=== PATIENT | male | born 1955 | race Caucasian/White ===

== ENCOUNTER 2016-05-31 09:01 | Day surgery (SDC) | payer OTHER ==
[~2016-05-31 09:01] MED LIST: LACTATED RINGERS 1,000 ML IV SCH
[2016-05-31 09:35] VITALS: RESP 16; TEMP 98.2
[2016-05-31] MEDS ORDERED: BUPIVACAINE (PF) 0.5% 30 ML VIAL ONE (10:32)
[2016-05-31] MEDS ORDERED: TRIAMCINOLONE ACETONIDE 40 MG/ML 1 ML VIAL ONE (10:32)
--- NOTE | 2016-05-31 11:04 | P.PCN ---
Date of Procedure: 05/31/16 Procedure(s) Performed: PREOPERATIVE DIAGNOSIS: 1-Lumbar Spondylosis with Facet Arthropathy without myelopathy. 2- sacroiliitis POSTOPERATIVE DIAGNOSIS: 1- Lumbar Spondylosis with Facet Arthropathy without myelopathy. 2- sacroiliitis PROCEDURES : Right side Radiofrequency thermocoagulation, L3-L4, L4-L5, and L5- S1 medial branch, with fluoroscopic guidance ANESTHESIA: local infiltration with lidocaine 1% 6 ml only (no IV sedation given as per patient's request) EBL: Minimal PROCEDURE INDICATION: The patient with low back pain secondary to lumbar facet arthropathy who had more than 50% relief of her pain with previous diagnostic lumbar medial branch block with bupivacaine. Patient had good results after the radiofrequency ablation of the medial branch lumbar area, and he is here today to have the radiofrequency plus the right sacroiliac joint steroid injection PROCEDURE DESCRIPTION / TECHNIQUE: The patient was seen and identified in the preoperative area. Risks, benefits, complications, including but not limited to risk of infection ,bleeding , allergic reactions to the medications and no complete pain releife , and alternatives were discussed with the patient, the patient agreed to proceed with the procedure and signed the consent. . Vital signs remained stable throughout the procedure. Patient was taken to the OR and time out was completed. The patient was placed in the prone position on the procedure table. The lumber area was prepped and draped in the usual sterile fashion. . Vital signs were closely monitored during the procedure. Using AP and then oblique fluoroscopy, the ``eye of the Sherwin dog corresponding to the connection between the superior and transverse articular processes of right L3, L4, and L5 were identified, marked, and localized with 1 % lidocaine. Subsequently, a 18 [id number] radiofrequency cannula with a 10- mm active tip was advanced guided by fluoroscopy to each of the ``eyes of the Sherwin dog at right L3, L4, and L5. Each site then underwent sensory testing at 50 Hz and 0 to 1 volt and motor testing at 2.5 Hz and 0 to 3 volt with local stimulation, but no radicular symptoms down the legs. Thereafter the right L3-4, L4-5, and L5-S1 sites underwent radiofrequency thermocoagulation at 80 degrees celsius for 90 seconds after injecting 0.5 ml of PF lidocaine 1%. then After the thermocoagulation done , 1 ml of the block solution containing Kenalog 40 mg and 3 ml of marain 0.5% was injected at the right L3-4 , L4-5 , and L5-S1, levels after negative aspiration of CSF and blood and with no paresthesias. Cannulas were retracted while injecting lidocaine 1% until the needle is out. Procedure description for the right sacroiliac joint= , the fluoroscopy camera was placed in the contralateral oblique view on the right sacroiliac joint and the lower part of the joint was identified, local infiltration of the skin and subcutaneous tissue with lidocaine 1% 2 mL then a 22-gauge Quincke-type spinal needle advanced slowly under fluoroscopy and placed in the posterior and inferior border of the right sacroiliac joint, placement confirmed with AP and lateral view, and after appropriate needle placement confirmed and after negative aspiration for heme and CSF and there was no paresthesia during the injection, 3 ml of Marcaine 0.5% and 40 mg of Kenalog injected after negative aspiration, the needle removed Patient tolerated the procedure well without any complication, The patient returned to supine position after the back was cleaned and a Band- Aid applied, the patient transported to recovery room in stable condition and he was monitored for 30 minutes before he was discharged home and then patient was reexamined before going home and patient was discharged in stable condition and patient will follow up with the pain clinic in a few weeks At the end of the procedure, the skin was cleansed and bandages were applied. COMPLICATIONS: No acute complications. DISPOSITION / PLANS: The patient was placed in a supine position and transferred to the recovery area in a stable condition for observation and was discharged from the recovery room after meeting discharge criteria. Home discharge instructions given to the patient by the staff. The patient was reexamined prior to discharge. The patient will schedule a follow up in the clinic in 2-4 weeks.
[2016-05-31 11:11] VITALS: BP 137/95; PULSE 75
--- NOTE | 2016-05-31 11:48 | FL ---
EXAMINATION TYPE: FL guided pain mgmt statistic DATE OF EXAM: 05/31/2016 11:07 AM HISTORY: Pain FLUORO TIME 15 SECONDS, 4 IMAGES SCANNED,
== END 2016-05-31 11:20 | disposition home or self-care (01) ==
LOC: ORPAIN 09:01
PROVIDERS: ATTEND Specialist
DX: M47.816 Spondylosis without myelopathy or radiculopathy, lumbar region (principal); M46.96 Unspecified inflammatory spondylopathy, lumbar region; M46.1 Sacroiliitis, not elsewhere classified
CPT/HCPCS: 64635; 64636 ×2; 99152; 99153; J3301; G0260; 27096

== ENCOUNTER → 2016-07-26 | Outpatient (CLI) | payer OTHER ==
[2016-07-26 12:27] VITALS: PULSE 95; RESP 16; TEMP 97.9
--- NOTE | 2016-07-26 12:52 | P.CONS ---
History of Present Illness - Reason for Consult Consult date: 07/26/16 - History of Present Illness This is follow-up visit for this 60 years old male with a chronic history of severe low back pain, diagnosed with lumbar spondylosis and sacroiliitis, with done diagnostic medial branch block bilaterally and he had good result and with done radiofrequency ablation of the right-sided medial branch lumbar area, currently is complaining of severe low back pain with radiation to the buttock bilaterally, and also to the posterior lateral aspect of the lower extremities, he denies any motor or sensory deficits he denies any change in the bowel movement or urination and is currently on pain medication [place] 10/325 every 6 hours, magnesium oxide 400 mg daily and Mobic 7.5 mg daily, he denies any side effect of the medication he denies any excessive drowsiness and sleepiness and he for the current pain medications helping him to control his pain. Past Medical History Past Medical History: Pneumonia Additional Past Medical History / Comment(s): HX OF PNEUMONIA (X10), MONO AND MALARIA, DDD/Chronic back pain. History of Any Multi-Drug Resistant Organisms: None Reported Past Surgical History: No Surgical Hx Reported Additional Past Surgical History / Comment(s): [facility] Past Anesthesia/Blood Transfusion Reactions: No Reported Reaction Past Psychological History: ADD/ADHD Smoking Status: Current every day smoker Past Alcohol Use History: Rare Additional Past Alcohol Use History / Comment(s): SMOKING FOR 40 PLUS YEARS, CURRENTLY SMOKING 5-6 CIGARETTES PER DAY. Past Drug Use History: None Reported - Past Family History Mother Family Medical History: No Reported History Medications and Allergies Home Medications Medication Instructions Recorded Confirmed Type Aspirin 81 mg PO DAILY 04/02/15 07/26/16 History Dextroamphetamine/Amphetamine 15 mg PO BID 07/24/15 07/26/16 History [Adderall] Allergies Allergy/AdvReac Type Severity Reaction Status Date / Time No Known Allergies Allergy Verified 07/26/16 12:08 Physical Exam Vitals: Vital Signs Temp Pulse Resp Pulse Ox 07/26/16 12:10 97.9 F 95 16 97 Intake and Output 07/25/16 07/26/16 07/26/16 22:59 06:59 14:59 Other: Weight 106.594 kg Patient Weight 07/27/16 06:59 Weight 106.594 kg Physical Examinations : 1-Constitutiona : Cooperative , not in acute distress . 2-HEENT : nech ; supple , no Lymphadenopathy , no Thyromegaly , normal thyroid size . eyes : no ptosis , no icterus, no photophobia . ENT : normal of hearing , normal oropharynx , no Thrush . 3- Respiratory : Chest clear to auscultations Bilaterally , no wheezing , no Rhonchi . 4- Cardiovascular : regular rate and rhythem , S1 , S2 , no S3 , no S4. 5- Gastrointestinal : abdomen soft no tenderness , bowel sounds positive all four quadrents , no organomegally . 6- Genitourinary : Defferred . 7- neurologic : Cranial nerve II to XII intact , no focal neurological deffecit . 8-psychatric : alert , oriented X 3 , appropriate affect , intact judgment and insight . 9-Lymphatic : no Lymphadenopathy . 10- musculoskeltal : exams of the Lumber spine = normal moter stegnth lower extremities ,thigh and legs .5/5 deep tendon reflexes : normal Knee Jerk , normal ankle Jerk . positive lumber facet Loading Test strait leg raising test positive at 30 degree , RT ,LT , Fabere test positive RT and positive LT . Sever tenderness over the Sacroiliac joint on the Right , and Left side Assessment and Plan Plan: Assessment and plan = - Chronic low back pain secondary to lumbar spondylosis with facet arthropathy without myelopathy. Bilateral sacroiliitis -chronic and current use of high-risk medication (Opioids). -Patient denies any side effect of the medication, and the current medication helped the patient to control the pain and improve activity of daily living, the visual The patient was counseled about risk of opioid use, psychological risk associated with opioids discussed with the patient, body mass index and exercise. Patient signed the narcotic agreement , and was orally counseled not to overuse , abuse , divert, or sell medications ,and take them as prescribed only , and the patient was counseled against driving and while you are using the narcotic medication also not to use alcohol or any illicit drugs and the patient verbalized understanding that lack of compliance and could result in failure to renew narcotics prescriptions and possible discharge from the clinic - diagnoses, prognosis, and treatment options including but not limited to physical therapy, surgical interventions, interventional therapies and medication management including narcotics and adjuvant medication were discussed with the patient and all questions answered to the patient's satisfaction. -medication refile =1-[place] 10/325 every 6 hours dispense 120 with one refill 2-magnesium oxide 400 mg daily dispensed 30 with one refill 3-Mobic 7.5 mg daily dispensed 30 with one refill -procedure= patient could benefit from radiofrequency ablation of the medial branch on the left side at L3/L4 5/L5-S1 , and also he could benefit from bilateral sacroiliac joint steroid injection, Time with Patient: Less than 30
[2016-07-26 13:02] VITALS: BP 171/123
--- NOTE | 2016-07-26 13:11 | P.PN ---
Progress Note - Text This is an addendum to the consult note dictated today, the patient's blood pressure was right arm 181/150, and repeated on the right side was 171/123, and interviewed the patient had hypertensive emergency and I explained to the patient gets is very important, that he has to go to the emergency room for evaluation regarding his high blood pressure, and a explained to the patient that this is a higher risk for stroke/heart attack and kidney disease, , and patient reported that he will go to the emergency room today
== END | disposition home or self-care (01) ==
LOC: PNWHC3 11:53
PROVIDERS: ATTEND Specialist
DX: M47.816 Spondylosis without myelopathy or radiculopathy, lumbar region (principal); M46.86 Other specified inflammatory spondylopathies, lumbar region; M46.1 Sacroiliitis, not elsewhere classified; F17.200 Nicotine dependence, unspecified, uncomplicated; Z87.01 Personal history of pneumonia (recurrent); Z79.82 Long term (current) use of aspirin; Z79.899 Other long term (current) drug therapy
CPT/HCPCS: 99211

== ENCOUNTER 2016-09-16 07:58 | Day surgery (SDC) | payer OTHER ==
[2016-09-02 13:31] VITALS: BMI 30.8
[2016-09-16 08:20] VITALS: RESP 16; TEMP 97.3
[2016-09-16] MEDS ORDERED: DEXAMETHASONE SOD PHOS (MDV) 100 MG/10 ML VIAL ONE (09:29)
[2016-09-16] MEDS ORDERED: BUPIVACAINE (PF) 0.5% 30 ML VIAL ONE (09:29)
--- NOTE | 2016-09-16 10:09 | P.PCN ---
Date of Procedure: 09/16/16 Preoperative Diagnosis: Postoperative Diagnosis: Procedure(s) Performed: PREOPERATIVE DIAGNOSIS: 1-Lumbar Spondylosis with Facet Arthropathy without myelopathy. 2- sacroiliitis POSTOPERATIVE DIAGNOSIS: 1- Lumbar Spondylosis with Facet Arthropathy without myelopathy. 2- sacroiliitis. PROCEDURES :1- Left Radiofrequency thermocoagulation, L3-L4, L4-L5, and L5-S1 medial branch, with fluoroscopic guidance 2-bilaterally sacroilac joints steroid injections under fluoroscopy guidance ANESTHESIA: local infiltration with lidocaine 1% 6 ml , no iv sedations EBL: Minimal PROCEDURE INDICATION: The patient with low back pain secondary to lumbar facet arthropathy who had more than 50% relief of her pain with previous diagnostic lumbar medial branch block with bupivacaine. PROCEDURE DESCRIPTION / TECHNIQUE: The patient was seen and identified in the preoperative area. Risks, benefits, complications, including but not limited to risk of infection ,bleeding , allergic reactions to the medications and no complete pain releife , and alternatives were discussed with the patient, the patient agreed to proceed with the procedure and signed the consent. IV was started. Vital signs remained stable throughout the procedure. Patient was taken to the OR and time out was completed. The patient was placed in the prone position on the procedure table. The lumber area was prepped and draped in the usual sterile fashion. . Vital signs were closely monitored during the procedure . Using AP and then oblique fluoroscopy, the ``eye of the Sherwin dog corresponding to the connection between the superior and transverse articular processes of left L3, L4, and L5 were identified, marked, and localized with 1 % lidocaine. Subsequently, a 18 guage (Venom )100-mm radiofrequency cannula with a 10-mm active tip was advanced guided by fluoroscopy to each of the `` eyes of the Sherwin dog at Left L3, L4, and L5. Each site then underwent sensory testing at 50 Hz and 0 to 1 volt and motor testing at 2.5 Hz and 0 to 3 volt with local stimulation, but no radicular symptoms down the legs. Thereafter the Left L3-4, L4-5, and L5-S1 sites underwent radiofrequency thermocoagulation at 80 degrees celsius for 90 seconds after injecting 0.5 ml of PF lidocaine 1%. then After the thermocoagulation done , 1 ml of the block solution containing Dexamethasone 10 mg and 3 ml of marain 0.5% was injected at the Left L3-4 , L4-5 , and L5-S1, levels after negative aspiration of CSF and blood and with no paresthesias. Cannulas were retracted while injecting lidocaine 1% until the needle is out.. Procedure description for the sacroiliac joints steroid injections = , the fluoroscopy camera was placed in the contralateral oblique view on the right sacroiliac joint and the lower part of the joint was identified, local infiltration of the skin and subcutaneous tissue with lidocaine 1% 2 mL then a 22-gauge Quincke-type spinal needle advanced slowly under fluoroscopy and placed in the posterior and inferior border of the right sacroiliac joint, placement confirmed with AP and lateral view, and after appropriate needle placement confirmed and after negative aspiration for heme and CSF and there was no paresthesia during the injection, 3 ml of Marcaine 0.5% and 5 mg Dexamethasone ,injected after negative aspiration, the needle removed, and the entire same procedure was repeated for the left sacroiliac joint Patient tolerated the procedure well without any complication, The patient returned to supine position after the back was cleaned and a Band- Aid applied, the patient transported to recovery room in stable condition and he was monitored for 30 minutes before he was discharged home and then patient was reexamined before going home and patient was discharged in stable condition and patient will follow up with the pain clinic in a few weeks At the end of the procedure, the skin was cleansed and bandages were applied. COMPLICATIONS: No acute complications. DISPOSITION / PLANS: The patient was placed in a supine position and transferred to the recovery area in a stable condition for observation and was discharged from the recovery room after meeting discharge criteria. Home discharge instructions given to the patient by the staff. The patient was reexamined prior to discharge. The patient will schedule a follow up in the clinic in 2-4 weeks. Implants: Indications for Procedure: Operative Findings: Description of Procedure:
[2016-09-16 10:32] VITALS: BP 148/88; PULSE 75
--- NOTE | 2016-09-16 11:04 | FL ---
FLUOROSCOPY 24 seconds of fluoroscopy time were utilized during Pain Injection. 5 images document the procedure.
== END 2016-09-16 10:34 | disposition home or self-care (01) ==
LOC: ORPAIN 07:58
PROVIDERS: ATTEND Specialist
DX: M47.816 Spondylosis without myelopathy or radiculopathy, lumbar region (principal); M46.96 Unspecified inflammatory spondylopathy, lumbar region; M46.1 Sacroiliitis, not elsewhere classified
CPT/HCPCS: 64635; 64636; J1100; G0260

== ENCOUNTER → 2016-11-09 | Outpatient (CLI) | payer OTHER ==
[2016-11-09 11:57] VITALS: BP 125/89; PULSE 85; RESP 16; TEMP 97.6
--- NOTE | 2016-11-09 12:17 | P.PN ---
Progress Note - Text This is a 60-year-old gentleman with severe axial lower back pain. The patient' s pain has been treated with a combination of oral Louann and interventional pain procedures. The last one was RFA on the left lumbar medial branches and he also had an RFA on the right side in May. Both of these injections helped his pain for a few months. He reports increasing intensity of his pain especially on the right side and that's why I'm going to schedule him for right lumbar medial branch RFA. I will also give him prescription for Louann, magnesium ,and mobic. The patient does not show any drug-seeking behavior he also does not show any signs of oversedation. He denies any bowel or bladder dysfunction. His increasing lower back pain has been affecting his daily activities but hopefully doing the RFA on the right side will help decrease the intensity of this pain.
== END | disposition home or self-care (01) ==
LOC: PNWHC3 11:32
PROVIDERS: ATTEND Anesthesiology
DX: M54.5 Low back pain (principal)
CPT/HCPCS: 99211

== ENCOUNTER 2016-12-08 10:10 | Day surgery (SDC) | payer OTHER ==
[2016-12-01 10:40] VITALS: BMI 29.9
[~2016-12-08 10:10] MED LIST changes: +LACTATED RINGERS 1,000 ML IV ONE; -LACTATED RINGERS 1,000 ML IV SCH
[2016-12-08 11:32] VITALS: RESP 16; TEMP 98.1
--- NOTE | 2016-12-08 12:37 | P.PCN ---
Date of Procedure: 12/08/16 Preoperative Diagnosis: Postoperative Diagnosis: Procedure(s) Performed: PREOPERATIVE DIAGNOSIS: 1-Lumbar Spondylosis with Facet Arthropathy without myelopathy. 2- sacroiliitis POSTOPERATIVE DIAGNOSIS: 1- Lumbar Spondylosis with Facet Arthropathy without myelopathy. 2- sacroiliitis PROCEDURES : Right Radiofrequency thermocoagulation, L3-L4, L4-L5, and L5-S1 medial branch, with fluoroscopic guidance ANESTHESIA: local infiltration with lidocaine 1% 6 ml only ,no IV sedations EBL: Minimal PROCEDURE INDICATION: The patient with low back pain secondary to lumbar facet arthropathy who had more than 50% relief of her pain with previous diagnostic lumbar medial branch block with bupivacaine. PROCEDURE DESCRIPTION / TECHNIQUE: The patient was seen and identified in the preoperative area. Risks, benefits, complications, including but not limited to risk of infection ,bleeding , allergic reactions to the medications and no complete pain releife , and alternatives were discussed with the patient, the patient agreed to proceed with the procedure and signed the consent. IV was started. Vital signs remained stable throughout the procedure. Patient was taken to the OR and time out was completed. The patient was placed in the prone position on the procedure table. The lumber area was prepped and draped in the usual sterile fashion. . Vital signs were closely monitored during the procedure . Using AP and then oblique fluoroscopy, the ``eye of the Sherwin dog corresponding to the connection between the superior and transverse articular processes of right L3, L4, and L5 were identified, marked, and localized with 1 % lidocaine. Subsequently, a 18 [id number] radiofrequency cannula with a 10- mm active tip was advanced guided by fluoroscopy to each of the ``eyes of the Sherwin dog at right L3, L4, and L5. Each site then underwent sensory testing at 50 Hz and 0 to 1 volt and motor testing at 2.5 Hz and 0 to 3 volt with local stimulation, but no radicular symptoms down the legs. Thereafter the right L3-4, L4-5, and L5-S1 sites underwent radiofrequency thermocoagulation at 80 degrees celsius for 90 seconds after injecting 0.5 ml of PF lidocaine 1%. then After the thermocoagulation done , 1 ml of the block solution containing Dexamrthasone 10 mg and 3 ml of marain 0.5% was injected at the right L3-4 , L4-5 , and L5-S1, levels after negative aspiration of CSF and blood and with no paresthesias. Cannulas were retracted while injecting lidocaine 1% until the needle is out. At the end of the procedure, the skin was cleansed and bandages were applied. COMPLICATIONS: No acute complications. DISPOSITION / PLANS: The patient was placed in a supine position and transferred to the recovery area in a stable condition for observation and was discharged from the recovery room after meeting discharge criteria. Home discharge instructions given to the patient by the staff. The patient was reexamined prior to discharge. The patient will schedule a follow up in the clinic in 2-4 weeks. Implants: Indications for Procedure: Operative Findings: Description of Procedure:
[2016-12-08 12:49] VITALS: BP 118/84; PULSE 82
--- NOTE | 2016-12-08 13:47 | FL ---
EXAMINATION TYPE: FL guided pain mgmt statistic DATE OF EXAM: 12/08/2016 COMPARISON: NONE HISTORY: Back pain TECHNIQUE: Fluoroscopy. FINDINGS/IMPRESSION: Fluoroscopic guidance was provided during procedure performed by Dr. Ramsey. A total of 12 seconds of fluoroscopic time was utilized during the procedure and 3 spot images was a cquired.
== END 2016-12-08 13:01 | disposition home or self-care (01) ==
LOC: ORPAIN 10:10
PROVIDERS: ATTEND Specialist
DX: M47.816 Spondylosis without myelopathy or radiculopathy, lumbar region (principal); M46.96 Unspecified inflammatory spondylopathy, lumbar region; M46.1 Sacroiliitis, not elsewhere classified; I10 Essential (primary) hypertension
CPT/HCPCS: 64635; 64636 ×2; J1100

== ENCOUNTER → 2017-01-04 | Outpatient (CLI) | payer OTHER ==
[2017-01-04 13:11] VITALS: BP 100/56; RESP 16
--- NOTE | 2017-01-04 13:28 | P.PN ---
Progress Note - Text Patient returns for followup for chronic back pain with radiation to the hips. Patient recently underwent bilatearl lumbar RFA, which provided some relief for 3-4 weeks' interval until he stepped in a rut while not looking and has had severe pain in his back since, but no incontinence or new weakness. Patient continues on [place]/magnesium/Mobic medications for pain with good relief. Patient denies adverse drug effects from medications. Today, pt denies any other signs or symptoms of cauda equina syndrome. There are no signs of acute intoxication, and no indications of medication diversion or overuse. In addition to above, 13-point review of systems is also negative for chest pain , shortness of breath, changes in vision, changes in hearing, new onset weakness , abdominal pain, diarrhea, extreme fatigue, malaise, fever, skin changes, homicidal or suicidal ideation, or bowel or bladder incontinence. Vital Signs: Reviewed in EMR Gen: WDWN, AAOx3, NAD HEENT: NCAT, EOMI, hearing grossly normal Pulm: resp unlabored Abd: soft, NT, ND Neck: supple, trachea midline ROM in flexion lumbar spine: reduced ROM in extension lumbar spine: reduced Lumbar paravertebral tenderness: + Facet loading: + bilateral SI joint tenderness: + R >> L Nuno's test: + R > L Straight leg raise: neg Neuro: CN II-XII grossly intact, muscle strength lower extremities PRESERVED Imaging: Reviewed in EMR Assessment: 1. lumbar spondylosis without myelopathy 2. chronic pain syndrome 3. SI joint dysfunction Plan: 1. Explanation: Opioid and psychological risk scores were reviewed. Diagnoses , prognoses, and multiple treatment options including but not limited to physical therapy, interventional therapies, adjuvant medical therapies, narcotic medication therapies, and surgery were discussed with the patient and all questions were answered to the patient's satisfaction. 2. Opioid agreement: Patient has previously signed narcotic agreement, and was orally counseled to not overuse, abuse, divert, or cell medications, and to take them as prescribed by only 1 healthcare provider. The patient was also counseled to store opioid medications in a safe and preferably locked location. Patient was also counseled against driving or operating heavy equipment while using narcotic medications and also to not use alcohol or any illicit or recreational drugs. The patient verbalized understanding that lack of compliance with any of the above and likely result in failure to renew narcotic prescriptions, possible discharge from the clinic, and possible legal ramifications thereafter if indicated. 3. Counseling: The patient was counseled extensively on SMOKING CESSATION, BODY MASS INDEX, EXERCISE. Specifically, the patient was instructed regarding the importance of smoking cessation, weight control, and exercise in the context of both chronic pain and overall health. 4. Procedures: none for now 5. Consultations: None 6. Investigations: None 7. Medications: [place] 10/325 #120 with one refill, Mobic and Magnesium with five refills 8. Disposition: f/u for re-eval in 8 weeks PQRS measures: 1-Patient's medications are documented in the chart. 2-Tobacco use is positive, counseling given 3-Patient has not had a pneumococcal vaccine. 4-Advanced care planning discussed, patient unable to give. 5-Opioid contract signed with the patient. 6-Pain positive, follow-up visit or procedure scheduled 7-Patient's blood pressure measured and documented, and patient will follow up with the primary care due to hypertension. 8-Patient's weight was measured, and body mass index ABOVE the normal limits, and counseling was done. Patient instructed to follow up with PCP. 9-Patient WAS NOT identified as an unhealthy alcohol user.
[2017-01-05 14:18] LABS: Mis test requested (Non-blood) HEROIN
[2017-01-05 14:20] LABS: Mis test requested (Non-blood) UDPAIN
== END | disposition home or self-care (01) ==
LOC: PNWHC3 12:34
PROVIDERS: ATTEND Anesthesiology
DX: M47.816 Spondylosis without myelopathy or radiculopathy, lumbar region (principal); M53.3 Sacrococcygeal disorders, not elsewhere classified; G89.4 Chronic pain syndrome
CPT/HCPCS: 80307; 80356; 99211

== ENCOUNTER → 2017-03-01 | Outpatient (CLI) | payer OTHER ==
[2017-03-01 12:19] VITALS: BP 116/82; PULSE 92; RESP 16; TEMP 98.3
--- NOTE | 2017-03-01 12:52 | P.PN ---
Progress Note - Text Progress Note Date: 03/01/17 This is a 61-year-old male with history of lumbar spondylosis and chronic lower back pain plus degenerative disc disease. The patient failed to respond to interventional pain procedures which gave him only short-lived improvements. He takes 4 pills a day of [place] 10 mg. His last urine drug screen was negative for opioids. He is alert oriented 3, usually paces the room every time I examined him. He has mildly decreased but symmetrical weakness in the lower extremities to 4 out of 5. Normal knee reflexes bilaterally and normal ankle with his bilaterally. He has significant tenderness in the lumbar paravertebral area especially on the right side. Today I will send the patient to repeat his urine drug screen and will give him prescription only for 1 month of [place].
== END | disposition home or self-care (01) ==
LOC: PNWHC3 12:03
PROVIDERS: ATTEND Anesthesiology
DX: M54.5 Low back pain (principal)
CPT/HCPCS: 80307; 80356; 80364; 99211

== ENCOUNTER → 2017-03-29 | Outpatient (CLI) | payer OTHER ==
[2017-03-29 13:00] VITALS: BP 138/93; PULSE 87; RESP 20; TEMP 98.3
--- NOTE | 2017-03-29 13:16 | P.PN ---
Progress Note - Text Progress Note Date: 03/29/17 Patient returns for followup for chronic back pain with radiation to the hips. Patient recently underwent bilateral lumbar RFA, which provided some relief for 3-4 weeks' interval until he stepped in a rut while not looking and has had severe pain in his back since, but no incontinence or new weakness. Patient continues on [place]/magnesium/Mobic medications for pain with good relief. Patient denies adverse drug effects from medications. Today, pt denies any other signs or symptoms of cauda equina syndrome. There are no signs of acute intoxication, and no indications of medication diversion or overuse. In addition to above, 13-point review of systems is also negative for chest pain , shortness of breath, changes in vision, changes in hearing, new onset weakness , abdominal pain, diarrhea, extreme fatigue, malaise, fever, skin changes, homicidal or suicidal ideation, or bowel or bladder incontinence. Vital Signs: Reviewed in EMR Gen: WDWN, AAOx3, NAD HEENT: NCAT, EOMI, hearing grossly normal Pulm: resp unlabored Abd: soft, NT, ND Neck: supple, trachea midline ROM in flexion lumbar spine: reduced ROM in extension lumbar spine: reduced Lumbar paravertebral tenderness: + Facet loading: + bilateral, R > L SI joint tenderness: + bilateral Nuno's test: + bilateral, L > R Straight leg raise: neg Neuro: CN II-XII grossly intact, muscle strength lower extremities PRESERVED Imaging: Reviewed in EMR Assessment: 1. lumbar spondylosis without myelopathy 2. chronic pain syndrome 3. SI joint dysfunction Plan: 1. Explanation: Opioid and psychological risk scores were reviewed. Diagnoses , prognoses, and multiple treatment options including but not limited to physical therapy, interventional therapies, adjuvant medical therapies, narcotic medication therapies, and surgery were discussed with the patient and all questions were answered to the patient's satisfaction. 2. Opioid agreement: Patient has previously signed narcotic agreement, and was orally counseled to not overuse, abuse, divert, or cell medications, and to take them as prescribed by only 1 healthcare provider. The patient was also counseled to store opioid medications in a safe and preferably locked location. Patient was also counseled against driving or operating heavy equipment while using narcotic medications and also to not use alcohol or any illicit or recreational drugs. The patient verbalized understanding that lack of compliance with any of the above and likely result in failure to renew narcotic prescriptions, possible discharge from the clinic, and possible legal ramifications thereafter if indicated. 3. Counseling: The patient was counseled extensively on SMOKING CESSATION, BODY MASS INDEX, EXERCISE. Specifically, the patient was instructed regarding the importance of smoking cessation, weight control, and exercise in the context of both chronic pain and overall health. 4. Procedures: none for now 5. Consultations: None 6. Investigations: MRI lumbar spine repeat (last done September 2014) 7. Medications: [place] 10/325 #120 with no refill 8. Disposition: f/u for re-eval in 4-6 weeks with MRI PQRS measures: 1-Patient's medications are documented in the chart. 2-Tobacco use is positive, counseling given 3-Patient has not had a pneumococcal vaccine. 4-Advanced care planning discussed, patient unable to give. 5-Opioid contract signed with the patient. 6-Pain positive, follow-up visit or procedure scheduled 7-Patient's blood pressure measured and documented, and patient will follow up with the primary care due to hypertension. 8-Patient's weight was measured, and body mass index ABOVE the normal limits, and counseling was done. Patient instructed to follow up with PCP. 9-Patient WAS NOT identified as an unhealthy alcohol user.
== END | disposition home or self-care (01) ==
LOC: PNWHC3 12:38
PROVIDERS: ATTEND Anesthesiology
DX: G89.29 Other chronic pain (principal); M47.816 Spondylosis without myelopathy or radiculopathy, lumbar region; M53.88 Other specified dorsopathies, sacral and sacrococcygeal region; I10 Essential (primary) hypertension; Z79.891 Long term (current) use of opiate analgesic; Z79.1 Long term (current) use of non-steroidal anti-inflammatories (NSAID); Z79.899 Other long term (current) drug therapy; Z72.0 Tobacco use
CPT/HCPCS: 99211

== ENCOUNTER → 2017-04-18 | Outpatient (CLI) | payer OTHER ==
--- NOTE | 2017-04-18 08:30 | MR ---
EXAMINATION TYPE: MR lumbar spine wo con DATE OF EXAM: 04/18/2017 COMPARISON: MRI lumbar spine September 24, 2014 HISTORY: Spondylosis w/o myelopathy or radiculopathy, lumbar, low back pain severe and persistent, fa iled lumbar pain relief all per order. Constant and chronic pain increasing in severity for over 30 y ears with pain into both lower extremities per patient. TECHNIQUE: Multiplanar, multisequence imaging of the lumbar spine is performed without IV contrast. FINDINGS: Sagittal images of the lumbar spine show vertebral body heights and alignment to appear sat isfactory. Prominent Schmorl node inferior L1 endplate is redemonstrated. Multilevel disc desiccation is present. There is mild disc space narrowing L5-S1 level. There is additional mild disc space narr owing L1-L2 and L2-L3 levels. The conus medullaris is stable in position and signal ending L1-L2 dis c space level. The bone marrow signal intensity is within normal limits. Mild to moderate multilevel anterior spurring is seen most prominent upper lumbar levels. Axial images show the T12-L1 level to appear within normal limits. Axial images at the L1-L2 level show mild to moderate broad disc bulge mildly effacing anterior theca l sac, bilateral neural foramina are patent. No significant change from prior. Axial images at L2-L3 level show moderate broad disc bulge effacing anterior thecal sac with mild janene ateral anterior inferior neural foraminal narrowing. No significant change from prior. Axial images at L3-L4 level shows mild broad disc bulge but spinal canal is preserved and bilateral n eural foramina are patent. Findings stable from prior. Axial images at L4-L5 level show mild facet degenerative changes and ligamentum flavum hypertrophy. T here is mild broad disc bulge. Spinal canal is preserved. Bilateral neural foramina are patent. Findi ngs stable from prior. Axial images at L5-S1 level are felt within normal limits. No suspicious retroperitoneal findings are seen. IMPRESSION: Multilevel degenerative changes in lumbar spine as detailed above. No significant progres alejo from prior MRI. No significant herniation is seen to account for patient's bilateral radiculopat hy type symptoms.
== END | disposition home or self-care (01) ==
LOC: RADMRIMAIN 06:04
PROVIDERS: ATTEND Anesthesiology
DX: M48.07 Spinal stenosis, lumbosacral region (principal); M99.73 Connective tissue and disc stenosis of intervertebral foramina of lumbar region; M51.26 Other intervertebral disc displacement, lumbar region; M47.816 Spondylosis without myelopathy or radiculopathy, lumbar region
CPT/HCPCS: 72148

== ENCOUNTER → 2017-05-09 | Outpatient (CLI) | payer OTHER ==
[2017-05-09 13:12] VITALS: BP 134/80; PULSE 69; RESP 16
--- NOTE | 2017-05-09 13:29 | P.PN ---
Progress Note - Text Progress Note Date: 05/09/17 Patient returns for followup for chronic back pain with radiation to the hips. Patient previously underwent bilateral lumbar RFA, which provided some relief for 3-4 weeks' interval until he stepped in a rut while not looking and has had severe pain in his back since. Patient is complaining of some falls recently, but cannot state whether he feels his leg giving out or causing extreme pain. Patient continues on [place]/magnesium/Mobic medications for pain with good relief. Patient denies adverse drug effects from medications. Today, pt denies any other signs or symptoms of cauda equina syndrome. There are no signs of acute intoxication, and no indications of medication diversion or overuse. In addition to above, 13-point review of systems is also negative for chest pain , shortness of breath, changes in vision, changes in hearing, new onset weakness , abdominal pain, diarrhea, extreme fatigue, malaise, fever, skin changes, homicidal or suicidal ideation, or bowel or bladder incontinence. Vital Signs: Reviewed in EMR Gen: WDWN, AAOx3, NAD HEENT: NCAT, EOMI, hearing grossly normal Pulm: resp unlabored Abd: soft, NT, ND Neck: supple, trachea midline ROM in flexion lumbar spine: reduced ROM in extension lumbar spine: reduced Lumbar paravertebral tenderness: + Facet loading: + bilateral, R > L SI joint tenderness: + bilateral Nuno's test: + bilateral Straight leg raise: neg Neuro: CN II-XII grossly intact, muscle strength lower extremities PRESERVED Imaging: MRI lumbar spine is essentially unchanged from previous was on 2014. There is again redemonstrated L2-L3 disc protrusion effacing the anterior thecal sac and also causing some neural foraminal narrowing. There are spondylitic changes at L3-L4 and L4-L5 with broad-based disc bulges at both levels as well. Assessment: 1. lumbar spondylosis without myelopathy 2. chronic pain syndrome 3. SI joint dysfunction Plan: 1. Explanation: Opioid and psychological risk scores were reviewed. Diagnoses , prognoses, and multiple treatment options including but not limited to physical therapy, interventional therapies, adjuvant medical therapies, narcotic medication therapies, and surgery were discussed with the patient and all questions were answered to the patient's satisfaction. 2. Opioid agreement: Patient has previously signed narcotic agreement, and was orally counseled to not overuse, abuse, divert, or cell medications, and to take them as prescribed by only 1 healthcare provider. The patient was also counseled to store opioid medications in a safe and preferably locked location. Patient was also counseled against driving or operating heavy equipment while using narcotic medications and also to not use alcohol or any illicit or recreational drugs. The patient verbalized understanding that lack of compliance with any of the above and likely result in failure to renew narcotic prescriptions, possible discharge from the clinic, and possible legal ramifications thereafter if indicated. 3. Counseling: The patient was counseled extensively on SMOKING CESSATION, BODY MASS INDEX, EXERCISE. Specifically, the patient was instructed regarding the importance of smoking cessation, weight control, and exercise in the context of both chronic pain and overall health. 4. Procedures: repeat left lumbar RFA, then right lumbar RFA 5. Consultations: None 6. Investigations: none 7. Medications: [place] 10/325 #120 with one refill 8. Disposition: f/u for procedure as scheduled PQRS measures: 1-Patient's medications are documented in the chart. 2-Tobacco use is positive, counseling given 3-Patient has not had a pneumococcal vaccine. 4-Advanced care planning discussed, patient unable to give. 5-Opioid contract signed with the patient. 6-Pain positive, follow-up visit or procedure scheduled 7-Patient's blood pressure measured and documented, and patient will follow up with the primary care due to hypertension. 8-Patient's weight was measured, and body mass index ABOVE the normal limits, and counseling was done. Patient instructed to follow up with PCP. 9-Patient WAS NOT identified as an unhealthy alcohol user.
== END | disposition home or self-care (01) ==
LOC: PNWHC3 12:47
PROVIDERS: ATTEND Anesthesiology
DX: G89.4 Chronic pain syndrome (principal); M47.816 Spondylosis without myelopathy or radiculopathy, lumbar region; M53.3 Sacrococcygeal disorders, not elsewhere classified; Z79.891 Long term (current) use of opiate analgesic; Z79.1 Long term (current) use of non-steroidal anti-inflammatories (NSAID); Z79.899 Other long term (current) drug therapy
CPT/HCPCS: 99211

== ENCOUNTER 2017-06-03 10:02 | Emergency (ER) | payer OTHER ==
[2017-06-03 10:12] VITALS: BP 140/75; PULSE 85; RESP 20; TEMP 97
--- NOTE | 2017-06-03 10:40 | ED ---
General Adult HPI - General Chief complaint: Upper Respiratory Infection Stated complaint: uri Time Seen by Provider: 06/03/17 10:15 Source: patient, RN notes reviewed Mode of arrival: ambulatory Limitations: no limitations - History of Present Illness Initial comments: Patient is a pleasant 61-year-old male presenting to the emergency department with sinus congestion. Symptoms have been present around 10 days. Patient did have a lot of drainage and still does however is mostly clear at this point. Patient gets occasional headaches. Patient has ear fullness. Patient has been coughing. No dyspnea. Patient may have had a fever over a week ago however none since. No myalgias. - Related Data Home Medications Medication Instructions Recorded Confirmed Aspirin 81 mg PO DAILY 04/02/15 05/09/17 Dextroamphetamine/Amphetamine 15 mg PO BID 07/24/15 05/09/17 [Adderall] Ergocalciferol [Vitamin D2] 50,000 unit PO DIRECTED 09/02/16 05/09/17 Metoprolol Tartrate [Lopressor] 50 mg PO BID 05/09/17 05/09/17 Previous Rx's Medication Instructions Recorded HYDROcodone/APAP 10-325MG [[place] 1 tab PO Q6H PRN #120 tab 05/09/17 10-325] Hydrocodone/Acetaminophen [[place] 1 tab PO Q6H PRN #120 tab 05/09/17 10-325] Amoxic-Pot Clav 875-125Mg 1 tab PO Q12HR #20 tablet 06/03/17 [Augmentin 875-125] Allergies Allergy/AdvReac Type Severity Reaction Status Date / Time No Known Allergies Allergy Verified 06/03/17 10:12 Review of Systems ROS Statement: Those systems with pertinent positive or pertinent negative responses have been documented in the HPI. ROS Other: All systems not noted in ROS Statement are negative. Constitutional: Denies: chills Eyes: Denies: eye pain ENT: Reports: ear pain, throat pain, congestion Respiratory: Reports: cough. Denies: dyspnea Cardiovascular: Denies: chest pain Endocrine: Denies: fatigue Gastrointestinal: Denies: abdominal pain Genitourinary: Denies: dysuria Musculoskeletal: Denies: back pain Skin: Denies: rash Neurological: Denies: weakness Past Medical History Past Medical History: Hypertension, Musculoskeletal Disorder, Pneumonia Additional Past Medical History / Comment(s): HX OF PNEUMONIA (X10), MONO AND MALARIA. DDD/Chronic back pain. NT DOWN STEPHANIA LE, KISHAN RT SIDE. Pain procedures at [facility]. Reported fall 05/07/18 "down 2 steps" denies follow up with physician. History of Any Multi-Drug Resistant Organisms: None Reported Past Surgical History: No Surgical Hx Reported Additional Past Surgical History / Comment(s): [facility] PAIN [facility]INIC PROC, MULT. EXC WISDOM TEETH YEARS AGO. Past Anesthesia/Blood Transfusion Reactions: No Reported Reaction Past Psychological History: ADD/ADHD Smoking Status: Current every day smoker Past Alcohol Use History: Rare Past Drug Use History: None Reported - Past Family History Mother Family Medical History: No Reported History General Exam Limitations: no limitations General appearance: alert, in no apparent distress Head exam: Present: atraumatic Eye exam: Present: normal appearance, PERRL ENT exam: Present: normal oropharynx, TM's normal bilaterally, other ( Tenderness over the frontal, ethmoid, and especially maxillary sinuses) Neck exam: Present: normal inspection Respiratory exam: Present: normal lung sounds bilaterally Cardiovascular Exam: Present: regular rate, normal rhythm Neurological exam: Present: alert Psychiatric exam: Present: normal affect, normal mood Course Vital Signs 06/03/17 10:10 Temperature 97 F L Pulse Rate 85 Respiratory 20 Rate Blood Pressure 140/75 O2 Sat by Pulse 98 Oximetry Disposition Clinical Impression: Sinusitis Disposition: HOME SELF-CARE Condition: Stable Instructions: Sinusitis (ED) Additional Instructions: Fsrs-bus-xranmxi saline nasal spray 4 times daily. Please follow-up with primary care physician in the next couple days for recheck. Return for difficulty breathing, fevers, worsening or changing symptoms or other concerns. Prescriptions: Amoxic-Pot Clav 875-125Mg [Augmentin 875-125] 1 tab PO Q12HR #20 tablet Referrals: Alvaro Clinton MD [Primary Care Provider] - 1-2 days Time of Disposition: 10:40
== END 2017-06-03 10:48 | disposition home or self-care (01) ==
LOC: EC 10:02
DX: J32.9 Chronic sinusitis, unspecified (principal); I10 Essential (primary) hypertension; F90.9 Attention-deficit hyperactivity disorder, unspecified type; F17.200 Nicotine dependence, unspecified, uncomplicated; Z87.01 Personal history of pneumonia (recurrent); Z79.82 Long term (current) use of aspirin; Z79.899 Other long term (current) drug therapy
CPT/HCPCS: 99283

== ENCOUNTER 2017-07-05 08:51 | Day surgery (SDC) | payer OTHER ==
[2017-07-03 13:40] VITALS: BMI 33.3
[~2017-07-05 08:51] MED LIST changes: -LACTATED RINGERS 1,000 ML IV ONE; +LACTATED RINGERS 1,000 ML IV SCH
[2017-07-05 09:03] VITALS: TEMP 98
--- NOTE | 2017-07-05 10:43 | P.PCN ---
Date of Procedure: 07/05/17 Procedure(s) Performed: PREOPERATIVE DIAGNOSIS: 1-Lumbar Spondylosis with Facet Arthropathy without myelopathy. 2-sacroiliitis. POSTOPERATIVE DIAGNOSIS: 1- Lumbar Spondylosis with Facet Arthropathy without myelopathy. 2- sacroiliitis. PROCEDURES : Left Radiofrequency thermocoagulation, L3-L4, L4-L5, and L5-S1 medial branch, with fluoroscopic guidance ANESTHESIA: local infiltration with lidocaine 1% 6 ml , NO IV sedations was used EBL: Minimal PROCEDURE INDICATION: The patient with low back pain secondary to lumbar facet arthropathy who had more than 50% relief of her pain with previous diagnostic lumbar medial branch block with bupivacaine. PROCEDURE DESCRIPTION / TECHNIQUE: The patient was seen and identified in the preoperative area. Risks, benefits, complications, including but not limited to risk of infection ,bleeding , allergic reactions to the medications and no complete pain releife , and alternatives were discussed with the patient, the patient agreed to proceed with the procedure and signed the consent. Vital signs remained stable throughout the procedure. Patient was taken to the OR and time out was completed. The patient was placed in the prone position on the procedure table. The lumber area was prepped and draped in the usual sterile fashion. . Vital signs were closely monitored during the procedure . Using AP and then oblique fluoroscopy, the ``eye of the Sherwin dog corresponding to the connection between the superior and transverse articular processes of left L3, L4, and L5 were identified, marked, and localized with 1 % lidocaine. Subsequently, a 18 -fk radiofrequency cannula with a 10- mm active tip was advanced guided by fluoroscopy to each of the ``eyes of the Sherwin dog at left L3, L4, and L5. Each site then underwent sensory testing at 50 Hz and 0 to 1 volt and motor testing at 2.5 Hz and 0 to 3 volt with local stimulation, but no radicular symptoms down the legs. Thereafter the left L3-4, L4-5, and L5-S1 sites underwent radiofrequency thermocoagulation at 80 degrees celsius for 90 seconds after injecting 0.5 ml of PF lidocaine 1%. then After the thermocoagulation done , 1 ml of the block solution containing Kenalog 40 mg and 3 ml of marcain 0.5% was injected at the left L3-4 , L4-5 , and L5-S1, levels after negative aspiration of CSF and blood and with no paresthesias. Cannulas were retracted while injecting lidocaine 1% until the needle is out. At the end of the procedure, the skin was cleansed and bandages were applied. COMPLICATIONS: No acute complications. DISPOSITION / PLANS: The patient was placed in a supine position and transferred to the recovery area in a stable condition for observation and was discharged from the recovery room after meeting discharge criteria. Home discharge instructions given to the patient by the staff. The patient was reexamined prior to discharge. The patient will schedule a follow up in the clinic in 2-4 weeks.
[2017-07-05 11:01] VITALS: BP 131/83; PULSE 63; RESP 18
--- NOTE | 2017-07-05 11:33 | FL ---
EXAMINATION TYPE: FL guided pain mgmt statistic DATE OF EXAM: 07/05/2017 FLUOROSCOPY Fluoroscopy time of 9 seconds was used during lumbar radiofrequency ablation. 3 image/s document/s t he procedure.
== END 2017-07-05 11:08 | disposition home or self-care (01) ==
LOC: ORPAIN 08:51
PROVIDERS: ATTEND Specialist
DX: M47.816 Spondylosis without myelopathy or radiculopathy, lumbar region (principal); M46.1 Sacroiliitis, not elsewhere classified; I10 Essential (primary) hypertension
CPT/HCPCS: 64635; 64636; 99152

== ENCOUNTER → 2017-08-02 | Outpatient (CLI) | payer OTHER ==
[2017-08-02 13:06] VITALS: BP 129/98; PULSE 73; RESP 16
--- NOTE | 2017-08-02 13:31 | P.PN ---
Progress Note - Text Progress Note Date: 08/02/17 Patient returns for followup for chronic back pain with radiation to the hips. Patient recently underwent repeat left lumbar RFA, which is helping his back substantially but his leg did give out once as he was going up a step and his pain returned on the left side after that; he is scheduled to have the right side done already. At last visit, patient was complaining of some falls, but these have also improved. Patient continues on [place]/magnesium/Mobic medications for pain with good relief. Patient denies adverse drug effects from medications. Today, pt denies any other signs or symptoms of cauda equina syndrome. There are no signs of acute intoxication, and no indications of medication diversion or overuse. In addition to above, 13-point review of systems is also negative for chest pain , shortness of breath, changes in vision, changes in hearing, new onset weakness , abdominal pain, diarrhea, extreme fatigue, malaise, fever, skin changes, homicidal or suicidal ideation, or bowel or bladder incontinence. Vital Signs: Reviewed in EMR Gen: WDWN, AAOx3, NAD HEENT: NCAT, EOMI, hearing grossly normal Pulm: resp unlabored Abd: soft, NT, ND Neck: supple, trachea midline ROM in flexion lumbar spine: reduced ROM in extension lumbar spine: reduced Lumbar paravertebral tenderness: + Facet loading: + bilateral, R > L SI joint tenderness: + bilateral Nuno's test: + bilateral, R > L Straight leg raise: neg Neuro: CN II-XII grossly intact, muscle strength lower extremities PRESERVED Imaging: MRI lumbar spine is essentially unchanged from previous was on 2014. There is again redemonstrated L2-L3 disc protrusion effacing the anterior thecal sac and also causing some neural foraminal narrowing. There are spondylitic changes at L3-L4 and L4-L5 with broad-based disc bulges at both levels as well. Assessment: 1. lumbar spondylosis without myelopathy 2. chronic pain syndrome 3. SI joint dysfunction Plan: 1. Explanation: Opioid and psychological risk scores were reviewed. Diagnoses , prognoses, and multiple treatment options including but not limited to physical therapy, interventional therapies, adjuvant medical therapies, narcotic medication therapies, and surgery were discussed with the patient and all questions were answered to the patient's satisfaction. 2. Opioid agreement: Patient has previously signed narcotic agreement, and was orally counseled to not overuse, abuse, divert, or cell medications, and to take them as prescribed by only 1 healthcare provider. The patient was also counseled to store opioid medications in a safe and preferably locked location. Patient was also counseled against driving or operating heavy equipment while using narcotic medications and also to not use alcohol or any illicit or recreational drugs. The patient verbalized understanding that lack of compliance with any of the above and likely result in failure to renew narcotic prescriptions, possible discharge from the clinic, and possible legal ramifications thereafter if indicated. 3. Counseling: The patient was counseled extensively on SMOKING CESSATION, BODY MASS INDEX, EXERCISE. Specifically, the patient was instructed regarding the importance of smoking cessation, weight control, and exercise in the context of both chronic pain and overall health. 4. Procedures: right lumbar RFA 5. Consultations: None 6. Investigations: none 7. Medications: [place] 10/325 #120 for first month, and then will reduce to #90 thereafter per month 8. Morphine equivalents prescribed per day: 40 for first month, and then 30 after 8. Disposition: f/u for procedure as scheduled PQRS measures: 1-Patient's medications are documented in the chart. 2-Tobacco use is positive, counseling given 3-Patient has not had a pneumococcal vaccine. 4-Advanced care planning discussed, patient unable to give. 5-Opioid contract signed with the patient. 6-Pain positive, follow-up visit or procedure scheduled 7-Patient's blood pressure measured and documented, and patient will follow up with the primary care due to hypertension. 8-Patient's weight was measured, and body mass index ABOVE the normal limits, and counseling was done. Patient instructed to follow up with PCP. 9-Patient WAS NOT identified as an unhealthy alcohol user.
== END | disposition home or self-care (01) ==
LOC: PNWHC3 12:38
PROVIDERS: ATTEND Anesthesiology
DX: G89.4 Chronic pain syndrome (principal); M54.9 Dorsalgia, unspecified; M47.816 Spondylosis without myelopathy or radiculopathy, lumbar region; M53.88 Other specified dorsopathies, sacral and sacrococcygeal region; Z79.891 Long term (current) use of opiate analgesic; Z79.1 Long term (current) use of non-steroidal anti-inflammatories (NSAID); Z72.0 Tobacco use; Z71.6 Tobacco abuse counseling
CPT/HCPCS: 99211

== ENCOUNTER 2017-09-18 06:32 | Day surgery (SDC) | payer OTHER ==
[2017-09-12 11:15] VITALS: BMI 34.7
[2017-09-18 07:24] VITALS: TEMP 98.4
--- NOTE | 2017-09-18 08:22 | P.PCN ---
Date of Procedure: 09/18/17 Surgeon: Karli Dooley Pathology: none sent Condition: stable Disposition: PACU Description of Procedure: Procedure(s) Performed: PREOPERATIVE DIAGNOSIS: 1-Lumbar Spondylosis with Facet Arthropathy without myelopathy. 2-sacroiliitis. POSTOPERATIVE DIAGNOSIS: 1- Lumbar Spondylosis with Facet Arthropathy without myelopathy. 2- sacroiliitis. PROCEDURES : Rt Radiofrequency thermocoagulation, L3-L4, L4-L5, and L5-S1 medial branch, with fluoroscopic guidance ANESTHESIA: local infiltration with lidocaine 1% 6 ml , NO IV sedations was used EBL: Minimal PROCEDURE INDICATION: The patient with low back pain secondary to lumbar facet arthropathy who had more than 50% relief of her pain with previous diagnostic lumbar medial branch block with bupivacaine. PROCEDURE DESCRIPTION / TECHNIQUE: The patient was seen and identified in the preoperative area. Risks, benefits, complications, including but not limited to risk of infection ,bleeding , allergic reactions to the medications and no complete pain releife , and alternatives were discussed with the patient, the patient agreed to proceed with the procedure and signed the consent. Vital signs remained stable throughout the procedure. Patient was taken to the OR and time out was completed. The patient was placed in the prone position on the procedure table. The lumber area was prepped and draped in the usual sterile fashion. . Vital signs were closely monitored during the procedure . Using AP and then oblique fluoroscopy, the ``eye of the Sherwin dog corresponding to the connection between the superior and transverse articular processes of Rt L3, L4, and L5 were identified, marked, and localized with 1% lidocaine. Subsequently, a [id number] radiofrequency cannula with a 10-mm active tip was advanced guided by fluoroscopy to each of the ``eyes of the Sherwin dog at Rt L3, L4, and L5. Each site then underwent sensory testing at 50 Hz and 0 to 1 volt and motor testing at 2.5 Hz and 0 to 3 volt with local stimulation, but no radicular symptoms down the legs. Thereafter the Rt L3-4, L4 -5, and L5-S1 sites underwent radiofrequency thermocoagulation at 80 degrees celsius for 90 seconds after injecting 0.5 ml of PF lidocaine 1%. then After the thermocoagulation done , 1 ml of the block solution containing Kenalog 40 mg and 3 ml of marcain 0.5% was injected at the Rt L3-4 , L4-5 , and L5-S1, levels after negative aspiration of CSF and blood and with no paresthesias. Cannulas were retracted while injecting lidocaine 1% until the needle is out. At the end of the procedure, the skin was cleansed and bandages were applied. COMPLICATIONS: No acute complications. DISPOSITION / PLANS: The patient was placed in a supine position and transferred to the recovery area in a stable condition for observation and was discharged from the recovery room after meeting discharge criteria. Home discharge instructions given to the patient by the staff. The patient was reexamined prior to discharge. The patient will schedule a follow up in the clinic in 2-4 weeks.
[2017-09-18 08:28] VITALS: BP 121/80; PULSE 70; RESP 18
--- NOTE | 2017-09-18 08:34 | FL ---
Fluoroscopy INDICATION: Pain FINDINGS: Fluoroscopy time: 23 seconds. Images obtained: 3. IMPRESSIONS: 1. Documentation of fluoroscopy.
== END 2017-09-18 08:38 | disposition home or self-care (01) ==
LOC: ORPAIN 06:32
PROVIDERS: ATTEND Anesthesiology
DX: M47.816 Spondylosis without myelopathy or radiculopathy, lumbar region (principal); M46.1 Sacroiliitis, not elsewhere classified; I10 Essential (primary) hypertension
CPT/HCPCS: 64635; 64636 ×2; J3301; J2001

== ENCOUNTER → 2017-09-27 | Outpatient (CLI) | payer OTHER ==
[2017-09-27 12:40] VITALS: BP 147/79; PULSE 65; RESP 16
--- NOTE | 2017-09-27 13:07 | P.PAINPG ---
Subjective Progress Note Date: 09/27/17 Principal diagnosis: Lumbar spondylosis This is a very pleasant 61-year-old gentleman with a history of intractable low back pain he recently underwent lumbar radio figures he ablation. He reports this is reduced his pain from a level of 9 to a level of 5 or 6. He says this is a significant amount of pain relief that he enjoys on a constant basis. Since the procedure he has improved his activity significantly. He is walking on a daily basis. He does admit to having some cramping in his legs and feet as well as very occasional burning in his foot. He says this is not painful but rather annoying. Other than this he is doing quite well. Objective - Vital Signs Vital signs: Vital Signs Temp Pulse 65 09/27/17 12:33 Resp 16 09/27/17 12:33 BP 147/79 09/27/17 12:33 Pulse Ox 97 09/27/17 12:33 Intake & Output 09/26/17 09/27/17 09/27/17 18:59 06:59 18:59 Weight 117.934 kg - Exam General: The patient is alert and oriented. Patient is not sedateded Patient answers all question appropriately. Cardiac: Heart is regular in rate and rhythm Respiratory: Clear to auscultation. No audible wheezes. Abdomen: Soft nontender nondistended. Lower extremities: Strength is normal bilaterally. Sensation is normal bilaterally. Reflexes are preserved and symmetric bilaterally. Straight leg raise is negative bilaterally. Assessment and Plan (1) Spondylosis of lumbar region without myelopathy or radiculopathy Narrative/Plan: Plan of Care 1. Medications: I will refill the patient's [place] today. He was weaned down on this at his last appointment. I would expect that his next follow-up appointment in 2 months this is reduced further to 60 tablets monthly. I have reviewed the patient's MAPS report and it reveals expected results. Patient has signed an opiate agreement as well as opiate consent for treatment in our clinic. They understand the risks and benefits of opiate medications. They are aware of the potential for addiction. 2. Interventions: No interventions are indicated this time. 3. Referrals: None 4. Testing: None 5. Psychological: Patient receives his medical care through the [facility]. He will pursue psychological treatment with that organization. Current Visit: Yes Status: Acute Code(s): M47.816 - SPONDYLOSIS W/O MYELOPATHY OR RADICULOPATHY, LUMBAR REGION SNOMED Code(s): 01104060 PQRS Measure Charge Sheet Measure #130: Documentation of Current Meds in Medical Chart: Patient's medications documented in chart Measure #226: Tobacco Use: Screen & Cessation Intervention: Pt screened for tobacco use AND intervention given Measure #111: Pneumonia Vaccination: Pneumococcal vaccine NOT administered or previously given Measure #47: Advance Care Plan: Advance care planning discussed & documented, pt chose/unable to give Measure #412: Opioid Treatment Agreement: Documented signed opioid trtmnt agreemnt min once during opioid trtmnt Measure #408: Opioid Therapy Follow-up Evaluation: Patient had f/u eval minimum every 3 months during opioid therapy Measure #317: Preventitive Care & Scrn High Bld Press & F/U: Normal blood pressure, f/u not required Measure #128: Body Mass Index (BMI) Screening & Follow-up: BMI documented within normal parameters Measure #131: Pain Assessment & Follow-up: Pain positive & plan documented Measure #431: Unhealthy Alcohol Use Preventative Care & Scrn: Patient not identified as an unhealthy alcohol user PQRS Narrative: Smoking Status Current every day smoker Do You Want the Pneumonia No Vaccine AT THIS TIME? Narcotic Agreement Date Signed 06/04/15 Blood Pressure 147/79 Pain Intensity [Right Lower 7 Back] Scale Used Numeric (1 - 10) Hx Alcohol Use (MH) No Home Medications: Ambulatory Orders Aspirin 81 mg PO DAILY 04/02/15 Dextroamphetamine/Amphetamine [Adderall] 15 mg PO BID 07/24/15 Ergocalciferol [Vitamin D2] 50,000 unit PO QMONTH 09/02/16 Metoprolol Tartrate [Lopressor] 50 mg PO BID 05/09/17 HYDROcodone/APAP 10-325MG [[place] 10-325] 1 tab PO Q8HR PRN 3 Days #90 tab Hydrocodone/Acetaminophen [[place] 10-325] 1 tab PO Q8H PRN #90 tab 09/27/17 Controlled Substance Measures - Controlled Substance Measures Is patient prescribed a controlled substance at discharge?: Yes When asked, does pt state using other controlled substances?: No If prescribed controlled substance>3 days was MAPS reviewed?: Yes If Rx opioid, was Start Talking consent form obtained?: Yes If opioid is for acute pain is fill amount 7 days or less?: No Was information provided regarding opioid addiction?: Yes
== END | disposition home or self-care (01) ==
LOC: PNWHC3 12:11
PROVIDERS: ATTEND Pain Medicine Pain Medicine
DX: M54.5 Low back pain (principal); M47.816 Spondylosis without myelopathy or radiculopathy, lumbar region; R25.2 Cramp and spasm; F17.200 Nicotine dependence, unspecified, uncomplicated; Z79.891 Long term (current) use of opiate analgesic; Z79.82 Long term (current) use of aspirin; Z79.899 Other long term (current) drug therapy
CPT/HCPCS: 80356; 99211

== ENCOUNTER → 2017-11-22 | Outpatient (CLI) | payer OTHER ==
[2017-11-22 12:46] VITALS: BP 138/98; RESP 16
--- NOTE | 2017-11-22 13:20 | P.PAINPG ---
Subjective Progress Note Date: 11/22/17 This is follow-up visit for this patient with a history of severe and chronic low back pain secondary to lumbar degenerative disc diseases , lumbar spondylosis with facet arthropathy, We have done interventional pain procedures radiofrequency ablation of the medial branch lumbar area, patient had some improvement in his pain, and there is significant improvement in activity of daily livings. He is able to ambulate without difficulty Patients currently on [place] 10/325 every 8 hours Patient denies any side effects of the medication, denies excessive drowsiness or sleepiness, denies suicidal ideation, and reports that the current pain medication is helping to control the pain ,and improve activity of daily living Patient denies any motor or sensory deficit , patient denies any fever or night sweats, denies any change in the bowel movements or urination Physical Examinations : 1-Constitutional : Cooperative , not in acute distress . 2-HEENT : nech ; supple , no Lymphadenopathy , no Thyromegaly , normal thyroid size . eyes : no ptosis , no icterus, no photophobia . ENT : normal of hearing , normal oropharynx , no Thrush . 3- Respiratory : Chest clear to auscultations Bilaterally , no wheezing , no Rhonchi . 4- Cardiovascular : regular rate and rhythem , S1 , S2 , no S3 , no S4. 5- Gastrointestinal : abdomen soft no tenderness , bowel sounds positive all four quadrents , no organomegally . 6- Genitourinary : Defferred . 7- neurologic: Cranial nerve II to XII intact , no focal neurological deffecit . 8- Psychatric: alert , oriented X 3 , appropriate affect , intact judgment and insight . 9- Lymphatic : no Lymphadenopathy . 10- Musculoskeltal : exams of the Lumber spine =motor strength lower extremities ,thigh and legs .5/5 deep tendon reflexes : normal Knee Jerk , normal ankle Jerk . lumber facet Loading Test positive strait leg raising test positive at 30 degree , RT ,LT , Fabere test positive RT and positive LT . Range of motion: Range of motion in flexion of the lumbar spine 30 degrees Range of motion range of motion of extension of the lumbar spine 10 Assessment and plan = Chronic low back pain secondary to lumbar degenerative disc disease , lumbar spondylosis with facet arthropathy without myelopathy , status post radiofrequency ablation of the medial branch lumbar area chronic and current use of high-risk medication (Opioids). The patient was counseled about risk of opioid use, psychological risk associated with opioids and was orally counseled to not overuse , divert,or sell dictations to take medications as prescribed only , and to restore medication in safe location , the patient counseled against driving while using narcotic medications , and also not to use alcohol or any illicit recreational drugs, patient's verbalized understanding that the lack of compliance will result in failure to renew narcotic prescription and possible discharge from the clinic - diagnoses, prognosis, and treatment options including but not limited to physical therapy, surgical interventions, interventional therapies , and medication management including narcotics and adjuvant medication were discussed with the patient and all the questions answered Prescription refill for [place] 10/325 every 8 hours dispense 90 with 1 refill, MAPS reviewed and it was appropriate, in the future we can consider doing lumbar epidural steroid injection Objective - Vital Signs Vital signs: Vital Signs Temp Pulse Resp 16 11/22/17 12:38 BP 138/98 11/22/17 12:38 Pulse Ox 96 11/22/17 12:38 Intake & Output 11/21/17 11/22/17 11/22/17 18:59 06:59 18:59 Weight 117.934 kg PQRS Measure Charge Sheet Measure #130: Documentation of Current Meds in Medical Chart: Patient's medications documented in chart Measure #226: Tobacco Use: Screen & Cessation Intervention: Pt screened for tobacco use AND intervention given Measure #111: Pneumonia Vaccination: Pneumococcal vaccine administered or previously received Measure #47: Advance Care Plan: Advance care planning discussed & documented, pt chose/unable to give Measure #412: Opioid Treatment Agreement: Documented signed opioid trtmnt agreemnt min once during opioid trtmnt Measure #408: Opioid Therapy Follow-up Evaluation: Patient had f/u eval minimum every 3 months during opioid therapy Measure #317: Preventitive Care & Scrn High Bld Press & F/U: Normal blood pressure, f/u not required Measure #128: Body Mass Index (BMI) Screening & Follow-up: BMI documented ABOVE normal parameters - f/u documented Measure #131: Pain Assessment & Follow-up: Pain positive & plan documented, Follow-up scheduled Measure #431: Unhealthy Alcohol Use Preventative Care & Scrn: Patient not identified as an unhealthy alcohol user PQRS Narrative: Smoking Status Current every day smoker Do You Want the Pneumonia No Vaccine AT THIS TIME? Narcotic Agreement Date Signed 06/04/15 Blood Pressure 138/98 Pain Intensity [Bilateral 7 Lower Back] Scale Used Numeric (1 - 10) Hx Alcohol Use (MH) No Home Medications: Ambulatory Orders Aspirin 81 mg PO DAILY 04/02/15 Dextroamphetamine/Amphetamine [Adderall] 15 mg PO BID 07/24/15 Ergocalciferol [Vitamin D2] 50,000 unit PO QMONTH 09/02/16 Metoprolol Tartrate [Lopressor] 50 mg PO BID 05/09/17 HYDROcodone/APAP 10-325MG [[place] 10-325] 1 tab PO Q8H PRN 30 Days #90 tab HYDROcodone/APAP 10-325MG [[place] 10-325] 1 tab PO Q8HR PRN 30 Days #90 tab 11/22 HYDROcodone/APAP 10-325MG [[place] 10-325] 1 tab PO Q8HR PRN 30 Days #90 tab 11/22 Hydrocodone/Acetaminophen [[place] 10-325] 1 tab PO Q8H PRN #90 tab 11/22/17 Rosuvastatin Calcium [Crestor] 40 mg PO DAILY 11/22/17 Controlled Substance Measures - Controlled Substance Measures Is patient prescribed a controlled substance at discharge?: Yes When asked, does pt state using other controlled substances?: No If prescribed controlled substance>3 days was MAPS reviewed?: Yes If Rx opioid, was Start Talking consent form obtained?: Yes If opioid is for acute pain is fill amount 7 days or less?: No Was information provided regarding opioid addiction?: Yes
== END | disposition home or self-care (01) ==
LOC: PNWHC3 12:29
PROVIDERS: ATTEND Specialist
DX: G89.29 Other chronic pain (principal); M51.36 Other intervertebral disc degeneration, lumbar region; M47.816 Spondylosis without myelopathy or radiculopathy, lumbar region; M46.96 Unspecified inflammatory spondylopathy, lumbar region; F17.200 Nicotine dependence, unspecified, uncomplicated; Z79.82 Long term (current) use of aspirin; Z79.899 Other long term (current) drug therapy; Z79.891 Long term (current) use of opiate analgesic; Z98.890 Other specified postprocedural states
CPT/HCPCS: 99211

== ENCOUNTER → 2018-01-17 | Outpatient (CLI) | payer OTHER ==
[2018-01-17 12:30] VITALS: BP 129/77; PULSE 76; RESP 18
--- NOTE | 2018-01-18 08:18 | P.PAINPG ---
Subjective Progress Note Date: 01/17/18 This is follow-up visit for this patient with a history of severe and chronic low back pain secondary to lumbar degenerative disc diseases , lumbar spondylosis with facet arthropathy, We have done interventional pain procedures radiofrequency ablation of the medial branch lumbar area, patient had some improvement in his pain, and there is significant improvement in activity of daily livings. He is able to ambulate without difficulty Patients currently on [place] 10/325 every 8 hours Patient denies any side effects of the medication, denies excessive drowsiness or sleepiness, denies suicidal ideation, and reports that the current pain medication is helping to control the pain ,and improve activity of daily living Patient denies any motor or sensory deficit , patient denies any fever or night sweats, denies any change in the bowel movements or urination, he is complaining of some numbness and tingling sensation in the lower extremities and he feels like electric shock radiating from the back to the lower extremities Physical Examinations : 1-Constitutional : Cooperative , not in acute distress . 2-HEENT : nech ; supple , no Lymphadenopathy , no Thyromegaly , normal thyroid size . eyes : no ptosis , no icterus, no photophobia . ENT : normal of hearing , normal oropharynx , no Thrush . 3- Respiratory : Chest clear to auscultations Bilaterally , no wheezing , no Rhonchi . 4- Cardiovascular : regular rate and rhythem , S1 , S2 , no S3 , no S4. 5- Gastrointestinal : abdomen soft no tenderness , bowel sounds positive all four quadrents , no organomegally . 6- Genitourinary : Defferred . 7- neurologic: Cranial nerve II to XII intact , no focal neurological deffecit . 8- Psychatric: alert , oriented X 3 , appropriate affect , intact judgment and insight . 9- Lymphatic : no Lymphadenopathy . 10- Musculoskeltal : exams of the Lumber spine =motor strength lower extremities ,thigh and legs .5/5 deep tendon reflexes : normal Knee Jerk , normal ankle Jerk . lumber facet Loading Test positive strait leg raising test positive at 30 degree , RT ,LT , Fabere test positive RT and positive LT . Range of motion: Range of motion in flexion of the lumbar spine 30 degrees Range of motion range of motion of extension of the lumbar spine 10 Assessment and plan = Chronic low back pain secondary to lumbar degenerative disc disease , lumbar spondylosis with facet arthropathy without myelopathy , status post radiofrequency ablation of the medial branch lumbar area, currently patient having some lumbar radiculopathy chronic and current use of high-risk medication (Opioids). The patient was counseled about risk of opioid use, psychological risk associated with opioids and was orally counseled to not overuse , divert,or sell dictations to take medications as prescribed only , and to restore medication in safe location , the patient counseled against driving while using narcotic medications , and also not to use alcohol or any illicit recreational drugs, patient's verbalized understanding that the lack of compliance will result in failure to renew narcotic prescription and possible discharge from the clinic - diagnoses, prognosis, and treatment options including but not limited to physical therapy, surgical interventions, interventional therapies , and medication management including narcotics and adjuvant medication were discussed with the patient and all the questions answered Prescription refill for [place] 10/325 every 8 hours dispense 90 with 1 refill, MAPS reviewed and it was appropriate, in the future we can consider doing lumbar epidural steroid injection Patient could benefit from Lyrica was started him on 25 mg twice a day, and next visit ,will do urine drug screen Objective - Vital Signs Vital signs: Vital Signs Temp Pulse 76 01/17/18 12:21 Resp 18 01/17/18 12:21 BP 129/77 01/17/18 12:21 Pulse Ox 96 01/17/18 12:21 Intake & Output 01/17/18 01/18/18 01/18/18 18:59 06:59 18:59 Weight 117.934 kg PQRS Measure Charge Sheet Measure #130: Documentation of Current Meds in Medical Chart: Patient's medications documented in chart Measure #226: Tobacco Use: Screen & Cessation Intervention: Pt screened for tobacco use AND intervention given Measure #111: Pneumonia Vaccination: Pneumococcal vaccine NOT administered or previously given Measure #47: Advance Care Plan: Advance care planning discussed & documented, pt chose/unable to give Measure #412: Opioid Treatment Agreement: Documented signed opioid trtmnt agreemnt min once during opioid trtmnt Measure #408: Opioid Therapy Follow-up Evaluation: Patient had f/u eval minimum every 3 months during opioid therapy Measure #317: Preventitive Care & Scrn High Bld Press & F/U: Blood pressure not documented, patient not eligible Measure #128: Body Mass Index (BMI) Screening & Follow-up: BMI documented ABOVE normal parameters - f/u documented Measure #131: Pain Assessment & Follow-up: Pain positive & plan documented, Follow-up scheduled Measure #431: Unhealthy Alcohol Use Preventative Care & Scrn: Patient not identified as an unhealthy alcohol user PQRS Narrative: Smoking Status Current every day smoker Do You Want the Pneumonia Vaccine Up to Date Vaccine AT THIS TIME? Narcotic Agreement Date Signed 06/04/15 Blood Pressure 129/77 Pain Intensity [Generalized] 8 Scale Used Numeric (1 - 10) Hx Alcohol Use (MH) No Home Medications: Ambulatory Orders Aspirin 81 mg PO DAILY 04/02/15 Dextroamphetamine/Amphetamine [Adderall] 15 mg PO BID 07/24/15 Ergocalciferol [Vitamin D2] 50,000 unit PO QMONTH 09/02/16 Metoprolol Tartrate [Lopressor] 50 mg PO BID 05/09/17 HYDROcodone/APAP 10-325MG [[place] 10-325] 1 tab PO Q8H PRN 30 Days #90 tab Hydrocodone/Acetaminophen [[place] 10-325] 1 tab PO Q8H PRN #90 tab 11/22/17 Rosuvastatin Calcium [Crestor] 40 mg PO DAILY 11/22/17 HYDROcodone/APAP 10-325MG [[place] 10-325] 1 tab PO Q8HR PRN 30 Days #90 tab 01/17 HYDROcodone/APAP 10-325MG [[place] 10-325] 1 tab PO Q8HR PRN 30 Days #90 tab 01/17 Pregabalin [Lyrica] 25 mg PO TID 30 Days #90 cap 01/17/18 Controlled Substance Measures - Controlled Substance Measures Is patient prescribed a controlled substance at discharge?: Yes When asked, does pt state using other controlled substances?: No If prescribed controlled substance>3 days was MAPS reviewed?: Yes If Rx opioid, was Start Talking consent form obtained?: Yes If opioid is for acute pain is fill amount 7 days or less?: No Was information provided regarding opioid addiction?: Yes
== END | disposition home or self-care (01) ==
LOC: PNWHC3 12:08
PROVIDERS: ATTEND Specialist
DX: G89.29 Other chronic pain (principal); M51.36 Other intervertebral disc degeneration, lumbar region; M47.816 Spondylosis without myelopathy or radiculopathy, lumbar region; M46.96 Unspecified inflammatory spondylopathy, lumbar region; Z98.890 Other specified postprocedural states; F17.200 Nicotine dependence, unspecified, uncomplicated; Z79.899 Other long term (current) drug therapy; Z79.891 Long term (current) use of opiate analgesic
CPT/HCPCS: 99211

== ENCOUNTER → 2018-03-14 | Outpatient (CLI) | payer OTHER ==
[2018-03-14 12:40] VITALS: BP 130/99; PULSE 69; RESP 18
--- NOTE | 2018-03-14 13:03 | P.PAINPG ---
Subjective Progress Note Date: 03/14/18 Principal diagnosis: lumbar radiculopathy, lumbar spondylosis this is a 62-year-old gentleman who presents today for follow-up appointment. He is maintained on opiate medications. she has also undergone epidural steroid injections partially 3 years ago as well as diagnostic lumbar medial branch nerve blocks and sacroiliac joint injections. He reports that these offered him some help. Today, he complains of pain in his back which radiates down his back into his legs all the way down into his feet. He describes pain as burning. He denies bowel or bladder dysfunction. He denies any motor weakness. Objective - Vital Signs Vital signs: Vital Signs Temp Pulse 69 03/14/18 12:31 Resp 18 03/14/18 12:31 BP 130/99 03/14/18 12:31 Pulse Ox 96 03/14/18 12:31 Intake & Output 03/13/18 03/14/18 03/14/18 18:59 06:59 18:59 Weight 120.202 kg - Exam General: The patient is alert and oriented. Patient is not sedated Patient answers all question appropriately.he smells heavily of tobacco. Cardiac: Heart is regular in rate and rhythm Respiratory: Clear to auscultation. No audible wheezes. Abdomen: Soft nontender nondistended. Lower extremities: Strength is normal bilaterally. Sensation is normal bilaterally. Reflexes are preserved and symmetric bilaterally. Straight leg raise is negative bilaterally.Facet loading maneuvers are positive bilaterally. He is tender to palpation bilaterally over his sacroiliac joints. Range of motion for back flexion and extension are extremely poor. Assessment and Plan (1) Lumbar radiculopathy Narrative/Plan: Plan of Care 1. Medications:I will refill the patient's [place]. He will receive 2 months prescriptions. I have reviewed the patient's MAPS report and it reveals expected results. Patient has signed an opiate agreement as well as opiate consent for treatment in our clinic. They understand the risks and benefits of opiate medications. They are aware of the potential for addiction. 2. Interventions:we will schedule the patient for a lumbar epidural steroid injection L5-S1 interspace 3. Referrals:none 4. Testing:none 5. Follow-up: lumbar epidural steroid injection L5-S1 interspace Current Visit: Yes Status: Acute Code(s): M54.16 - RADICULOPATHY, LUMBAR REGION SNOMED Code(s): 105135283 (2) Spondylosis of lumbar region without myelopathy or radiculopathy Current Visit: No Status: Acute Code(s): M47.816 - SPONDYLOSIS W/O MYELOPATHY OR RADICULOPATHY, LUMBAR REGION SNOMED Code(s): 89787239 PQRS Measure Charge Sheet Measure #130: Documentation of Current Meds in Medical Chart: Patient's medications documented in chart Measure #226: Tobacco Use: Screen & Cessation Intervention: Pt screened for tobacco use AND intervention given Measure #111: Pneumonia Vaccination: Pneumococcal vaccine NOT administered or previously given Measure #47: Advance Care Plan: Advance care planning discussed & documented, pt chose/unable to give Measure #412: Opioid Treatment Agreement: Documented signed opioid trtmnt agreemnt min once during opioid trtmnt Measure #408: Opioid Therapy Follow-up Evaluation: Patient had f/u eval minimum every 3 months during opioid therapy Measure #317: Preventitive Care & Scrn High Bld Press & F/U: Pre-hypertensive or hypertensive BP documented, pt will f/u with PCP Measure #128: Body Mass Index (BMI) Screening & Follow-up: BMI documented ABOVE normal parameters - f/u documented Measure #131: Pain Assessment & Follow-up: Pain positive & plan documented Measure #431: Unhealthy Alcohol Use Preventative Care & Scrn: Patient not identified as an unhealthy alcohol user PQRS Narrative: Smoking Status Current every day smoker Do You Want the Pneumonia No Vaccine AT THIS TIME? Narcotic Agreement Date Signed 03/14/18 Blood Pressure 130/99 Pain Intensity [Lower Back] 7 Hx Alcohol Use (MH) No Home Medications: Ambulatory Orders Aspirin 81 mg PO DAILY 04/02/15 Dextroamphetamine/Amphetamine [Adderall] 15 mg PO BID 07/24/15 Ergocalciferol [Vitamin D2] 50,000 unit PO QMONTH 09/02/16 Metoprolol Tartrate [Lopressor] 50 mg PO BID 05/09/17 Rosuvastatin Calcium [Crestor] 40 mg PO DAILY 11/22/17 HYDROcodone/APAP 10-325MG [[place] 10-325] 1 tab PO Q8HR PRN 30 Days #90 tab 01/17 Controlled Substance Measures - Controlled Substance Measures Is patient prescribed a controlled substance at discharge?: Yes When asked, does pt state using other controlled substances?: No If prescribed controlled substance>3 days was MAPS reviewed?: Yes
== END ==
LOC: PNWHC3 12:24
PROVIDERS: ATTEND Pain Medicine Pain Medicine
DX: M47.26 Other spondylosis with radiculopathy, lumbar region (principal); F17.200 Nicotine dependence, unspecified, uncomplicated; Z79.899 Other long term (current) drug therapy; Z79.82 Long term (current) use of aspirin
CPT/HCPCS: 99211

== ENCOUNTER 2018-04-18 07:45 | Day surgery (SDC) | payer OTHER ==
[2018-04-16 10:57] VITALS: BMI 33.3
[~2018-04-18 07:45] MED LIST changes: -LACTATED RINGERS 1,000 ML IV SCH; +SODIUM CHLORIDE 0.9% 500 ML 500 ML IV SCH
[2018-04-18 08:23] VITALS: RESP 18; TEMP 97.4
--- NOTE | 2018-04-18 08:59 | P.PCN ---
Date of Procedure: 04/18/18 Procedure(s) Performed: PREOPERATIVE DIAGNOSIS: 1- Lumbar Degenerative Disc Diseases 2-Lumbar spondylosis with Facet arthropathy without myelopathy POSTOPERATIVE DIAGNOSIS: 1-Lumber Degenerative Disc Diseases 2-Lumbar spondylosis with Facet arthropathy without myelopathy PROCEDURE 1. Lumbar epidural steroid injection under fluoroscopic guidance at the L5-S1 level. 2. Lumbar epidurogram. ANESTHESIA: Local with 1% lidocaine 3 ml ( NO IV SEDATIONS ). EBL: Minimal PROCEDURE INDICATION: The patient with low back pain and radiculitis symptoms unresponsive to conservative treatment. Fluoroscopy was used to optimize visualization of the needle placement and to maximize safety. PROCEDURE DESCRIPTION / TECHNIQUE: The patient was seen and identified in the preoperative area. Risks, benefits , complications including but not limited to infections ,bleeding ,allergic reaction to the medications ,nerve damage and not complete pain releife , and alternatives were discussed with the patient. The patient agreed to proceed with the procedure and signed the consent, and vital signs were stable. Patient was taken to the OR and time out was completed. The patient was placed in the prone position on procedure table and a pillow was placed under the abdomen to reduce lumbar lordosis. The lumbosacral area was prepped and draped in the usual sterile fashion.ere closely monitored during the procedure. Vital signs was monitered during the entire procedure. Using anterior-posterior fluoroscopy, the L5-S1 interlaminar space was identified and the skin over this site was marked and then infiltrated with 1% lidocaine subcutaneously. Subsequently, a 20-gauge Tuohy epidural needle was inserted and advanced toward the epidural space using the ``Loss of resistance technique and guided by AP and lateral fluoroscopy. The correct needle position in the epidural space was verified with the injection of 2 mL of the water soluble contrast dye Isovue 200 contrast and observing an excellent epidurogram with the epidural spread of the dye, after negative aspiration for blood and CSF and in the absence of paresthesias. Again after negative aspiration, a 6 ml mixture containing 80 mg of Depo-medrol , and 2 ml of preservative free Normal Saline, and 2 ml of preservative free lidocaine 1% solution was injected and a washout of epidurogram was seen. Needle was withdrawn intact, skin was cleansed, and bandages were applied. COMPLICATIONS: None DISPOSITION / PLANS: The patient was placed in a supine position and transferred to the recovery area in a stable condition for observation. There was no evidence of lower extremity motor or sensory deficit after the procedure. Patient was discharged from the recovery room after meeting discharge criteria. Home discharge instructions were given to the patient by the staff. The patient was reexamined prior to discharge. The patient will schedule a follow up in the clinic in 2-4 weeks.
[2018-04-18 09:09] VITALS: BP 116/74; PULSE 64
--- NOTE | 2018-04-18 09:30 | FL ---
EXAMINATION TYPE: FL guided pain mgmt statistic DATE OF EXAM: 04/18/2018 CLINICAL HISTORY: Low back pain. TECHNIQUE: Fluoroscopy. COMPARISON: None. FINDINGS: Fluoroscopic guidance was provided during pain relief procedure performed by Dr. Ramsey . A total of 1 seconds of fluoroscopic time was utilized during the procedure and 1 spot images are acquired. Images acquired shows needle localization of the lumbosacral spine. IMPRESSION: As Above.
== END 2018-04-18 09:18 | disposition home or self-care (01) ==
LOC: ORPAIN 07:45
PROVIDERS: ATTEND Specialist
DX: M47.816 Spondylosis without myelopathy or radiculopathy, lumbar region (principal); M51.36 Other intervertebral disc degeneration, lumbar region; M54.10 Radiculopathy, site unspecified; I10 Essential (primary) hypertension
CPT/HCPCS: 62323; J1030; Q9966

== ENCOUNTER 2018-05-01 06:04 | Day surgery (SDC) | payer OTHER ==
[2018-04-27 13:57] VITALS: BMI 34.0
[2018-05-01 06:36] VITALS: RESP 16; TEMP 98.7
[2018-05-01 07:16] VITALS: BP 144/85; PULSE 93
--- NOTE | 2018-05-01 09:09 | FL ---
EXAMINATION TYPE: FL guided pain mgmt statistic DATE OF EXAM: 05/01/2018 CLINICAL HISTORY: Low back pain. TECHNIQUE: Fluoroscopy. COMPARISON: None. FINDINGS: Fluoroscopic guidance was provided during pain relief procedure performed by Dr. Ramsey . A total of 3 seconds of fluoroscopic time was utilized during the procedure and 1 spot fluoroscopi c image is acquired. Single image acquired shows needle localization at L5 level with contrast injec tion. IMPRESSION: As Above.
--- NOTE | 2018-05-03 12:35 | P.PCN ---
Date of Procedure: 05/01/18 Procedure(s) Performed: PREOPERATIVE DIAGNOSIS: 1- Lumbar Degenerative Disc Diseases 2-Lumbar spondylosis with Facet arthropathy without myelopathy. POSTOPERATIVE DIAGNOSIS: 1-Lumber Degenerative Disc Diseases 2-Lumbar spondylosis with Facet arthropathy without myelopathy. PROCEDURE 1. Lumbar epidural steroid injection under fluoroscopic guidance at the L5-S1 level. 2. Lumbar epidurogram. ANESTHESIA: Local with 1% lidocaine 3 ml ( NO IV SEDATIONS ). EBL: Minimal PROCEDURE INDICATION: The patient with low back pain and radiculitis symptoms unresponsive to conservative treatment. Fluoroscopy was used to optimize visualization of the needle placement and to maximize safety. PROCEDURE DESCRIPTION / TECHNIQUE: The patient was seen and identified in the preoperative area. Risks, benefits , complications including but not limited to infections ,bleeding ,allergic reaction to the medications ,nerve damage and not complete pain releife , and alternatives were discussed with the patient. The patient agreed to proceed with the procedure and signed the consent, and vital signs were stable. Patient was taken to the OR and time out was completed. The patient was placed in the prone position on procedure table and a pillow was placed under the abdomen to reduce lumbar lordosis. The lumbosacral area was prepped and draped in the usual sterile fashion.ere closely monitored during the procedure. Vital signs was monitered during the entire procedure. Using anterior-posterior fluoroscopy, the L5-S1 interlaminar space was identified and the skin over this site was marked and then infiltrated with 1% lidocaine subcutaneously. Subsequently, a 20-gauge Tuohy epidural needle was inserted and advanced toward the epidural space using the ``Loss of resistance technique and guided by AP and lateral fluoroscopy. The correct needle position in the epidural space was verified with the injection of 2 mL of the water soluble contrast dye Isovue 200 contrast and observing an excellent epidurogram with the epidural spread of the dye, after negative aspiration for blood and CSF and in the absence of paresthesias. Again after negative aspiration, a 6 ml mixture containing 80 mg of Depo-medrol , and 2 ml of preservative free Normal Saline, and 2 ml of preservative free lidocaine 1% solution was injected and a washout of epidurogram was seen. Needle was withdrawn intact, skin was cleansed, and bandages were applied. COMPLICATIONS: None DISPOSITION / PLANS: The patient was placed in a supine position and transferred to the recovery area in a stable condition for observation. There was no evidence of lower extremity motor or sensory deficit after the procedure. Patient was discharged from the recovery room after meeting discharge criteria. Home discharge instructions were given to the patient by the staff. The patient was reexamined prior to discharge. The patient will schedule a follow up in the clinic in 2-4 weeks.
== END 2018-05-01 07:24 | disposition home or self-care (01) ==
LOC: ORPAIN 06:04
PROVIDERS: ATTEND Specialist
DX: M47.816 Spondylosis without myelopathy or radiculopathy, lumbar region (principal); M51.36 Other intervertebral disc degeneration, lumbar region; M54.10 Radiculopathy, site unspecified
CPT/HCPCS: 62323; J1030; Q9966

== ENCOUNTER → 2018-05-09 | Outpatient (CLI) | payer OTHER ==
[2018-05-09 14:02] VITALS: BP 128/92; PULSE 68; RESP 16; TEMP 98.4
--- NOTE | 2018-05-10 10:44 | P.PN ---
Subjective Progress Note Date: 05/09/18 This is follow-up visit for this patient with a history of severe and chronic low back pain secondary to lumbar degenerative disc diseases , lumbar spondylosis with facet arthropathy, We have done interventional pain procedures radiofrequency ablation of the medial branch lumbar area, and also we have done lumbar epidural steroid injection, patient had improvement in his pain, and there is significant improvement in activity of daily livings. He is able to ambulate without difficulty Patients currently on [place] 10/325 every 8 hours Patient denies any side effects of the medication, denies excessive drowsiness or sleepiness, denies suicidal ideation, and reports that the current pain medication is helping to control the pain ,and improve activity of daily living Patient denies any motor or sensory deficit , patient denies any fever or night sweats, denies any change in the bowel movements or urination, he is complaining of some numbness and tingling sensation in the lower extremities and he feels like electric shock radiating from the back to the lower extremities Physical Examinations : 1-Constitutional : Cooperative , not in acute distress . 2-HEENT : nech ; supple , no Lymphadenopathy , no Thyromegaly , normal thyroid size . eyes : no ptosis , no icterus, no photophobia . ENT : normal of hearing , normal oropharynx , no Thrush . 3- Respiratory : Chest clear to auscultations Bilaterally , no wheezing , no Rhonchi . 4- Cardiovascular : regular rate and rhythem , S1 , S2 , no S3 , no S4. 5- Gastrointestinal : abdomen soft no tenderness , bowel sounds positive all four quadrents , no organomegally . 6- Genitourinary : Defferred . 7- neurologic: Cranial nerve II to XII intact , no focal neurological deffecit . 8- Psychatric: alert , oriented X 3 , appropriate affect , intact judgment and insight . 9- Lymphatic : no Lymphadenopathy . 10- Musculoskeltal : exams of the Lumber spine =motor strength lower extremities ,thigh and legs .5/5 deep tendon reflexes : normal Knee Jerk , normal ankle Jerk . lumber facet Loading Test positive strait leg raising test positive at 30 degree , RT ,LT , Fabere test positive RT and positive LT . Range of motion: Range of motion in flexion of the lumbar spine 30 degrees Range of motion range of motion of extension of the lumbar spine 10 Assessment and plan = Chronic low back pain secondary to lumbar degenerative disc disease , lumbar spondylosis with facet arthropathy without myelopathy , status post radiofrequency ablation of the medial branch lumbar area, currently patient having some lumbar radiculopathy chronic and current use of high-risk medication (Opioids). The patient was counseled about risk of opioid use, psychological risk associated with opioids and was orally counseled to not overuse , divert,or sell dictations to take medications as prescribed only , and to restore medication in safe location , the patient counseled against driving while using narcotic medications , and also not to use alcohol or any illicit recreational drugs, patient's verbalized understanding that the lack of compliance will result in failure to renew narcotic prescription and possible discharge from the clinic - diagnoses, prognosis, and treatment options including but not limited to physical therapy, surgical interventions, interventional therapies , and medication management including narcotics and adjuvant medication were discussed with the patient and all the questions answered Prescription refill for [place] 10/325 every 12 hours dispense 60 with 1 refill, ( decreased from 90 tablets per months ), MAPS reviewed and it was appropriate, - PQRS measures = - Patient's medications are documented in the chart. -Tobacco use is positive, and counseling.Given. -Patient's has not received pneumococcal vaccine. -Advanced care planning discussed, patient not eligible. -Opiate contract signed. -Pain positive and follow-up visit/procedure is scheduled. -Patient's blood pressure measured [ 128/92 ] , and documented in the record ,and patient will follow up with the primary care. -Patient's weight was measured and body mass index [34 ] above the normal limits and counseling was done. and patient instructed to follow-up with the primary care physician. -Patient was not identified as an unhealthy alcohol user - Controlled Substance Measures Is patient prescribed a controlled substance at discharge?: Yes When asked, does pt state using other controlled substances?: No If prescribed controlled substance>3 days was MAPS reviewed?: Yes If Rx opioid, was Start Talking consent form obtained?: Yes If opioid is for acute pain is fill amount 7 days or less?: No Was information provided regarding opioid addiction?: Yes Objective - Vital Signs Vital signs: Vital Signs Temp 98.4 F 05/09/18 13:51 Pulse 68 05/09/18 13:51 Resp 16 05/09/18 13:51 BP 128/92 05/09/18 13:51 Pulse Ox Intake & Output 05/09/18 05/10/18 05/10/18 18:59 06:59 18:59 Weight 120.202 kg
== END | disposition home or self-care (01) ==
LOC: PNWHC3 13:39
PROVIDERS: ATTEND Specialist
DX: G89.29 Other chronic pain (principal); M51.16 Intervertebral disc disorders with radiculopathy, lumbar region; M47.26 Other spondylosis with radiculopathy, lumbar region; M46.96 Unspecified inflammatory spondylopathy, lumbar region; Z98.890 Other specified postprocedural states; Z79.891 Long term (current) use of opiate analgesic
CPT/HCPCS: 99211

== ENCOUNTER → 2018-07-04 | Outpatient (CLI) | payer OTHER ==
[2018-07-04 14:35] VITALS: BP 116/85; RESP 16
--- NOTE | 2018-07-04 14:49 | P.PN ---
Subjective Progress Note Date: 07/04/18 This is a 62-year-old gentleman with history of chronic lower back pain with stable tingling in the lower extremities and no progressive weakness. The patient's pain has been well-controlled with oral opioids and interventional pain procedures from time to time. He received 2 lumbar epidural steroid inje ction recently and he elected to go down his Peck to 2 pills a day from 3. Today, pt denies new-onset weakness, bowel/bladder incontinence, or any other signs or symptoms of cauda equina syndrome. There are no signs of acute intoxication, and no indications of medication diversion or overuse. In addition to above, 13-point review of systems is also negative for chest pain, shortness of breath, changes in vision, changes in hearing, new onset weakness, abdominal pain, diarrhea, extreme fatigue, malaise, fever, skin changes, homicidal or suicidal ideation, or bowel or bladder incontinence. Vital Signs: Reviewed in EMR Gen: AAOx3, NAD HEENT: PERRLA,hearing grossly normal Pulm: resp unlabored Neck: supple, trachea midline Neuro exam of the lower extremities: No changes from baseline Straight leg raising test: Nuno's test: Range of motion of the lumbar spine: Decreased Facet loading test: Tenderness in the paravertebral musculature: Positive on the lumbar paravertebral area bilaterally Neuro: CN II-XII grossly intact, Imaging: Reviewed in EMR/chart Assessment: Lumbar spondylosis without myelopathy Lumbar degenerative disease Chronic pain syndrome Opioid dependence Plan: 1. Explanation: Opioid and psychological risk scores were reviewed. Diagnoses, prognoses, and multiple treatment options including but not limited to physical therapy, interventional therapies, adjuvant medical therapies, narcotic medication therapies, and surgery were discussed with the patient and all questions were answered to the patient's satisfaction. 2. Opioid agreement: Signed with the patient and the patient is warned not to use opioids while driving or before driving and not to combine opioids with benzodiazepines or alcohol. 3. Counseling: The patient was counseled extensively on SMOKING CESSATION, BODY MASS INDEX, EXERCISE. Specifically, the patient was instructed regarding the importance of smoking cessation, obesity, and exercise in the context of both chronic pain and overall health. 4. Procedures: None 5. Consultations: None 6. Investigations: None 7. Medications: Continue Peck 10 mg twice a day 8. Disposition: Return to clinic in 8 weeks 9. Maps were reviewed and were appropriate. PQRS measures: 1-Patient's medications are documented in the chart. 2-Tobacco use is positive, counseling given 3-Patient has not had a pneumococcal vaccine. 4-Advanced care planning discussed, patient unable to give 5-Opioid contract signed with the patient. 6-Pain positive, follow-up visit or procedure scheduled 7-Patient's blood pressure measured and documented normal limits. The patient will follow up with his primary care physician. 8-Patient's weight was measured, and body mass index ABOVE the normal limits, and counseling was done. Patient instructed to follow up with PCP. 9-Patient WAS NOT identified as an unhealthy alcohol user. Controlled Substance Measures Is patient prescribed a controlled substance at discharge?: Yes When asked, does pt state using other controlled substances?: No If prescribed controlled substance>3 days was MAPS reviewed?: Yes If Rx opioid, was Start Talking consent form obtained?: Yes If opioid is for acute pain is fill amount 7 days or less?: No Was information provided regarding opioid addiction?: Yes Objective - Vital Signs Vital signs: Vital Signs Temp Pulse Resp 16 07/04/18 14:28 BP 116/85 07/04/18 14:28 Pulse Ox 95 07/04/18 14:28 Intake & Output 07/03/18 07/04/18 07/04/18 18:59 06:59 18:59 Weight 113.398 kg
== END ==
LOC: PNWHC3 14:10
PROVIDERS: ATTEND Anesthesiology
DX: G89.4 Chronic pain syndrome (principal); M51.36 Other intervertebral disc degeneration, lumbar region; M47.816 Spondylosis without myelopathy or radiculopathy, lumbar region; F11.20 Opioid dependence, uncomplicated; Z79.891 Long term (current) use of opiate analgesic; Z72.0 Tobacco use
CPT/HCPCS: 99211

== ENCOUNTER → 2018-08-29 | Outpatient (CLI) | payer OTHER ==
[2018-08-29 12:52] VITALS: BP 122/82; PULSE 79; RESP 18
--- NOTE | 2018-08-29 13:25 | P.PN ---
Subjective Progress Note Date: 08/29/18 This is follow-up visit for this patient with a history of severe and chronic low back pain secondary to lumbar degenerative disc diseases , lumbar spondylosis with facet arthropathy, We have done interventional pain procedures radiofrequency ablation of the medial branch lumbar area, and lumbar epidural steroid injections Patients currently on [place] 10/325 every 12 hours, (he stopped using Lyrica because he had significant weight gain ) Patient denies any side effects of the medication, denies excessive drowsiness or sleepiness, denies suicidal ideation, and reports that the current pain medication is helping to control the pain ,and improve activity of daily living Patient denies any motor or sensory deficit , patient denies any fever or night sweats, denies any change in the bowel movements or urination Physical Examinations : -Constitutional : Cooperative , not in acute distress . -HEENT : nech ; supple , no Lymphadenopathy , no Thyromegaly , normal thyroid size . eyes : no ptosis , no icterus, no photophobia . - neurologic: Cranial nerve II to XII intact , no focal neurological deffecit . - Psychatric: alert , oriented X 3 , appropriate affect , intact judgment and insight . - Lymphatic : no Lymphadenopathy . - Musculoskeltal : exams of the Lumber spine =motor strength lower extremities ,thigh and legs .5/5 deep tendon reflexes : normal Knee Jerk , normal ankle Jerk . lumber facet Loading Test positive strait leg raising test positive at 30 degree , RT ,LT , Fabere test positive RT and positive LT . Range of motion: Range of motion in flexion of the lumbar spine 30 degrees Range of motion range of motion of extension of the lumbar spine 10 Assessment and plan = Chronic low back pain secondary to lumbar degenerative disc disease , lumbar spondylosis with facet arthropathy without myelopathy . chronic and current use of high-risk medication (Opioids). The patient was counseled about risk of opioid use, psychological risk associated with opioids and was orally counseled to not overuse , divert,or sell dictations to take medications as prescribed only , and to restore medication in safe location , the patient counseled against driving while using narcotic medications, and also not to use alcohol or any illicit recreational drugs, patient's verbalized understanding that the lack of compliance will result in failure to renew narcotic prescription and possible discharge from the clinic - diagnoses, prognosis, and treatment options including but not limited to physical therapy, surgical interventions, interventional therapies , and medication management including narcotics and adjuvant medication were discussed with the patient and all the questions answered Prescription refill for [place] 10/325 every 8 hours dispense 60 with 1 refill, MAPS reviewed and it was appropriate, patient could benefit from lumbar epidural steroid injection Objective - Vital Signs Vital signs: Vital Signs Temp Pulse 79 08/29/18 12:41 Resp 18 08/29/18 12:41 BP 122/82 08/29/18 12:41 Pulse Ox 96 08/29/18 12:41 Intake & Output 08/28/18 08/29/18 08/29/18 18:59 06:59 18:59 Weight 117.934 kg
== END ==
LOC: PNWHC3 12:31
PROVIDERS: ATTEND Specialist
DX: G89.29 Other chronic pain (principal); M51.36 Other intervertebral disc degeneration, lumbar region; M47.816 Spondylosis without myelopathy or radiculopathy, lumbar region; M46.96 Unspecified inflammatory spondylopathy, lumbar region; Z79.891 Long term (current) use of opiate analgesic; Z72.0 Tobacco use
CPT/HCPCS: 99211

== ENCOUNTER → 2018-09-19 | Day surgery (SDC) | payer OTHER ==
[2018-09-07 09:59] VITALS: BMI 33.3
[~2018-09-19] MED LIST changes: +LACTATED RINGERS 1,000 ML IV SCH; -SODIUM CHLORIDE 0.9% 500 ML 500 ML IV SCH
== END ==
LOC: ORPAIN 05:57
PROVIDERS: ATTEND Anesthesiology
DX: Z53.9 Procedure and treatment not carried out, unspecified reason (principal)

== ENCOUNTER → 2018-10-24 | Outpatient (CLI) | payer OTHER ==
[2018-10-24 13:04] VITALS: BP 114/85; PULSE 69; RESP 18
--- NOTE | 2018-10-24 18:35 | P.PAINPG ---
Subjective Progress Note Date: 10/24/18 - PQRS measures = - Patient's medications are documented in the chart. -Tobacco use is positive, and counseling.Given. -Patient's has not received pneumococcal vaccine. -Advanced care planning discussed, patient not eligible. -Opiate contract signed. -Pain positive and follow-up visit/procedure is scheduled. -Patient's blood pressure measured [122/82 ] , and documented in the record ,and patient will follow up with the primary care. -Patient's weight was measured and body mass index [33.4 ] above the, the normal limits and counseling was done. and patient instructed to follow-up with the primary care physician. -Patient was not identified as an unhealthy alcohol user This is follow-up visit for this patient with a history of severe and chronic low back pain secondary to lumbar degenerative disc diseases , lumbar spondylosis with facet arthropathy, We have done interventional pain procedures radiofrequency ablation of the medial branch lumbar area, and lumbar epidural steroid injections Patients currently on [place] 10/325 every 12 hours, (he stopped using Lyrica because he had significant weight gain ) Patient denies any side effects of the medication, denies excessive drowsiness or sleepiness, denies suicidal ideation, and reports that the current pain medication is helping to control the pain ,and improve activity of daily vinnie driver , reported that his low back pain increased over the last few weeks, it is constant and increases with any activity interfere with the quality of life, The pain is radiating to the lower extremity Patient denies any motor or sensory deficit , patient denies any fever or night sweats, denies any change in the bowel movements or urination Assessment and plan = Chronic low back pain secondary to lumbar degenerative disc disease , lumbar spondylosis with facet arthropathy without myelopathy . chronic and current use of high-risk medication (Opioids). The patient was counseled about risk of opioid use, psychological risk associated with opioids and was orally counseled to not overuse , divert,or sell dictations to take medications as prescribed only , and to restore medication in safe location , the patient counseled against driving while using narcotic medications, and also not to use alcohol or any illicit recreational drugs, patient's verbalized understanding that the lack of compliance will result in failure to renew narcotic prescription and possible discharge from the clinic - diagnoses, prognosis, and treatment options including but not limited to physical therapy, surgical interventions, interventional therapies , and medication management including narcotics and adjuvant medication were discussed with the patient and all the questions answered Prescription refill for [place] 10/325 every 8 hours dispense 60 with 1 refill, MAPS reviewed and it was appropriate, patient could benefit from lumbar epidural steroid injection Objective - Vital Signs Vital signs: Vital Signs Temp Pulse 69 10/24/18 12:58 Resp 18 10/24/18 12:58 BP 114/85 10/24/18 12:58 Pulse Ox 96 10/24/18 12:58 Intake & Output 10/23/18 10/24/18 10/24/18 18:59 06:59 18:59 Weight 117.934 kg - Exam Physical Examinations : -Constitutiona : Cooperative , not in acute distress . -HEENT : nech : supple , no Lymphadenopathy , normal thyroid size . eyes : no ptosis , no icterus, no photophobia . - neurologic : Cranial nerve II to XII intact , no focal neurological deffecit . -psychatric : alert , oriented X 3 , appropriate affect , intact judgment and insight . -Lymphatic : no Lymphadenopathy . - musculoskeltal : Lumber spine moter stegnth lower extremities ,thigh and legs 5/5 Right side , 5/5 Left side deep tendon reflexes : normal Knee Jerk , normal ankle Jerk positive lumber facet Loading Test Range of motion of the lumbar spine Flexion 30 degrees, extension 10 degrees strait leg raising test , positive at 30 degree bilaterally Fabere test positive RT and positi ve LT . Sever tenderness over the Sacroiliac joint on the R and L sides Assessment and Plan Plan: Assessment and plan = Chronic low back pain secondary to lumbar degenerative disc disease , lumbar spondylosis with facet arthropathy without myelopathy . chronic and current use of high-risk medication (Opioids). The patient was counseled about risk of opioid use, psychological risk associated with opioids and was orally counseled to not overuse , divert,or sell dictations to take medications as prescribed only , and to restore medication in safe location , the patient counseled against driving while using narcotic medications, and also not to use alcohol or any illicit recreational drugs, patient's verbalized understanding that the lack of compliance will result in failure to renew narcotic prescription and possible discharge from the clinic - diagnoses, prognosis, and treatment options including but not limited to physical therapy, surgical interventions, interventional therapies , and medication management including narcotics and adjuvant medication were discussed with the patient and all the questions answered Prescription refill for [place] 10/325 every 8 hours dispense 60 with 1 refill, patient started on Neurontin 300 mg daily at bedtime and increase gradually to TID MAPS reviewed and it was appropriate, patient could benefit from lumbar epidural steroid injection Patient had no benefit after lumbar epidural steroid injection then we should consider ordering MRI of the lumbar spine PQRS Measure Charge Sheet Measure #130: Documentation of Current Meds in Medical Chart: Patient's medications documented in chart Measure #226: Tobacco Use: Screen & Cessation Intervention: Pt screened for tobacco use AND intervention given Measure #111: Pneumonia Vaccination: Pneumococcal vaccine NOT administered or previously given Measure #47: Advance Care Plan: Advance care planning discussed & documented, pt chose/unable to give Measure #412: Opioid Treatment Agreement: Documented signed opioid trtmnt agreemnt min once during opioid trtmnt Measure #408: Opioid Therapy Follow-up Evaluation: Patient had f/u eval minimum every 3 months during opioid therapy Measure #317: Preventitive Care & Scrn High Bld Press & F/U: Normal blood pressure, f/u not required Measure #128: Body Mass Index (BMI) Screening & Follow-up: BMI documented ABOVE normal parameters - f/u documented Measure #131: Pain Assessment & Follow-up: Pain positive & plan documented, Follow-up scheduled Measure #431: Unhealthy Alcohol Use Preventative Care & Scrn: Patient not identified as an unhealthy alcohol user PQRS Narrative: Smoking Status Current every day smoker Narcotic Agreement Date Signed 03/14/18 Blood Pressure 114/85 Pain Intensity [Bilateral 8 Lower Back] Scale Used Numeric (1 - 10) Hx Alcohol Use (MH) No Home Medications: Ambulatory Orders Aspirin 81 mg PO DAILY 04/02/15 Dextroamphetamine/Amphetamine [Adderall] 15 mg PO BID 07/24/15 Ergocalciferol [Vitamin D2] 50,000 unit PO QMONTH 09/02/16 Metoprolol Tartrate [Lopressor] 50 mg PO BID 05/09/17 Rosuvastatin Calcium [Crestor] 40 mg PO DAILY 11/22/17 HYDROcodone/APAP 10-325MG [[place] 10-325] 1 tab PO Q12HR PRN 30 Days #60 tab 05/09/18 Controlled Substance Measures - Controlled Substance Measures Is patient prescribed a controlled substance at discharge?: Yes When asked, does pt state using other controlled substances?: No If prescribed controlled substance>3 days was MAPS reviewed?: Yes If Rx opioid, was Start Talking consent form obtained?: Yes If opioid is for acute pain is fill amount 7 days or less?: No Was information provided regarding opioid addiction?: Yes
== END | disposition home or self-care (01) ==
LOC: PNWHC3 12:38
PROVIDERS: ATTEND Specialist
DX: G89.29 Other chronic pain (principal); M51.36 Other intervertebral disc degeneration, lumbar region; M47.816 Spondylosis without myelopathy or radiculopathy, lumbar region; M46.96 Unspecified inflammatory spondylopathy, lumbar region; F17.200 Nicotine dependence, unspecified, uncomplicated; Z98.890 Other specified postprocedural states; Z79.891 Long term (current) use of opiate analgesic; Z79.82 Long term (current) use of aspirin; Z79.899 Other long term (current) drug therapy
CPT/HCPCS: 99211

== ENCOUNTER 2018-11-06 05:54 | Day surgery (SDC) | payer OTHER ==
[2018-11-01 10:12] VITALS: BMI 33.3
[2018-11-06 06:24] VITALS: RESP 18; TEMP 97.5
--- NOTE | 2018-11-06 07:29 | P.PCN ---
Date of Procedure: 11/06/18 Surgeon: Karli Dooley Pathology: none sent Condition: stable Disposition: PACU Description of Procedure: PREOPERATIVE DIAGNOSIS: 1-Lumbar radiculopathy 2- Lumber Degenerative Disc Diseases. POSTOPERATIVE DIAGNOSIS: 1-Lumbar radiculopathy. 2-Lumbar Degenerative Disc Diseases PROCEDURE 1. Lumbar epidural steroid injection under fluoroscopic guidance at the L4-5 leveln in the right paramedian approach. 2. Lumbar epidurogram. ANESTHESIA: Local with 1% lidocaine; and IV moderate conscious sedation with Versed and fentanyl EBL: Minimal PROCEDURE INDICATION: The patient with low back pain and radiculitis symptoms unresponsive to conservative treatment. Fluoroscopy was used to optimize visualization of the needle placement and to maximize safety. PROCEDURE DESCRIPTION / TECHNIQUE: The patient was seen and identified in the preoperative area. Risks, benefits, complications including but not limited to infections ,bleeding ,allergic reaction to the medications ,nerve damage and not complete pain relief , and alternatives were discussed with the patient. The patient agreed to proceed with the procedure and signed the consent. IV was started, and vital signs were stable. Patient was taken to the OR and time out was completed. The patient was placed in the prone position on procedure table and a pillow was placed under the abdomen to reduce lumbar lordosis. The lumbosacral area was prepped and draped in the usual sterile fashion with ChloraPrep.Patient was closely monitored during the procedure. Conscious sedation was used during the procedure to decrease patients anxiety. Vital signs were monitered during the entire procedure. Using anterior-posterior fluoroscopy, the L4-5 interlaminar space was identified and the skin over this site was marked and then infiltrated with 1% lidocaine subcutaneously. Subsequently, a 20-gauge Tuohy epidural needle was inserted and advanced toward the epidural space using the Loss of resistance to air technique and guided by AP and lateral fluoroscopy. The correct needle position in the epidural space was verified with the injection of 1 mL of the water soluble contrast dye Omnipaque 180 contrast and observing an excellent epidurogram with the epidural spread of the dye, after negative aspiration for blood and CSF and in the absence of paresthesias. Again after negative aspiration, a 8 ml mixture containing 80 mg of Kenalog and 5 ml of preservative free Normal Saline, and 2 ml of preservative free ropivacaine 0.5% solution was injected and a washout of epidurogram was seen. Needle was withdrawn intact, skin was cleansed, and bandages were applied. patient tolerated procedure well and was transferred to PACU in stable condition. COMPLICATIONS: None DISPOSITION / PLANS: The patient was placed in a supine position and transferred to the recovery area in a stable condition for observation. There was no evidence of lower extremity motor or sensory deficit after the procedure. Patient was discharged from the recovery room after meeting discharge criteria. Home discharge instructions were given to the patient by the staff. The patient was reexamined prior to discharge. The patient will schedule a follow up in the clinic in 2-4 weeks.
[2018-11-06 07:32] VITALS: BP 113/79; PULSE 79
--- NOTE | 2018-11-06 07:49 | FL ---
EXAMINATION TYPE: FL guided pain mgmt statistic DATE OF EXAM: 11/06/2018 CLINICAL HISTORY: Low back pain. TECHNIQUE: Fluoroscopy. COMPARISON: None. FINDINGS: Fluoroscopic guidance was provided during pain relief procedure performed by Dr. Dooley. A total of 4 seconds of fluoroscopic time was utilized during the procedure and two spot images are acquired. Images acquired shows needle localization of the lumbar spine. IMPRESSION: As Above.
== END 2018-11-06 07:42 | disposition home or self-care (01) ==
LOC: ORPAIN 05:54
PROVIDERS: ATTEND Anesthesiology
DX: G89.29 Other chronic pain (principal); M51.16 Intervertebral disc disorders with radiculopathy, lumbar region; M47.26 Other spondylosis with radiculopathy, lumbar region; I10 Essential (primary) hypertension; F17.200 Nicotine dependence, unspecified, uncomplicated; Z79.82 Long term (current) use of aspirin; Z79.899 Other long term (current) drug therapy
CPT/HCPCS: 62323; J3301; Q9966

== ENCOUNTER → 2018-12-19 | Outpatient (CLI) | payer OTHER ==
[2018-12-19 11:30] VITALS: BP 137/83; PULSE 63; RESP 18
--- NOTE | 2018-12-19 11:41 | P.PAINPG ---
Subjective Progress Note Date: 12/19/18 Principal diagnosis: Lumbar radiculopathy, bilateral neuropathy This a very pleasant 8-year-old gentleman with a history of intractable back pain as well as bilateral leg pain and neuropathy. He presents today for medication management. He reports he is taking his [place] and it is helping him. He also reports he has stopped drinking soda and that he is having some weight loss from this. He also discontinued his gabapentin due to concerns over gaining weight. He recently underwent a lumbar epidural steroid injection reports that this did offer him some relief which was temporary. He continues to walk on a daily basis to increase his mobility. He also stretches. He d enies any bowel or bladder dysfunction. He does report numbness in both legs that is worse on the right. Objective - Vital Signs Vital signs: Vital Signs Temp Pulse 63 12/19/18 11:23 Resp 18 12/19/18 11:23 BP 137/83 12/19/18 11:23 Pulse Ox 96 12/19/18 11:23 Intake & Output 12/18/18 12/19/18 12/19/18 18:59 06:59 18:59 Weight 117.934 kg - Exam General: The patient is alert and oriented. Patient is not sedated Patient answers all question appropriately. Cardiac: Heart is regular in rate and rhythm Respiratory: Clear to auscultation. No audible wheezes. Abdomen: Soft nontender nondistended. Musculoskeletal: Strength is normal bilaterally. Decreased sensation in the lower extremities bilaterally. This is more noticeable on the lateral aspect of the right leg. Straight leg raise is negative bilaterally. Tender to palpation over his lumbar spine. Neurological: Reflexes are reduced and symmetric bilaterally. Assessment and Plan (1) Lumbar radiculopathy Narrative/Plan: Plan of Care 1. Medications: I will refill the patient's [place] today. I have reviewed the patient's MAPS report and it reveals expected results. Patient has signed an opiate agreement as well as opiate consent for treatment in our clinic. They understand the risks and benefits of opiate medications. They are aware of the potential for addiction. 2. Interventions: Patient may benefit from lumbar epidural steroid injections in the future. We will not repeat any these until 2019. 3. Referrals: Patient was encouraged to walk and continue with his stretching and exercises. I've suggested that he participate in water activities in a local pool. 4. Testing: None ordered 5. Follow-up: 2 months Current Visit: No Status: Acute Code(s): M54.16 - RADICULOPATHY, LUMBAR REGION SNOMED Code(s): 791045279 (2) Spondylosis of lumbar region without myelopathy or radiculopathy Current Visit: No Status: Acute Code(s): M47.816 - SPONDYLOSIS W/O MYELOPATHY OR RADICULOPATHY, LUMBAR REGION SNOMED Code(s): 184152508 PQRS Measure Charge Sheet Measure #130: Documentation of Current Meds in Medical Chart: Patient's medications documented in chart Measure #226: Tobacco Use: Screen & Cessation Intervention: Pt screened for tobacco use AND intervention given Measure #111: Pneumonia Vaccination: Pneumococcal vaccine NOT administered or previously given Measure #47: Advance Care Plan: Advance care planning discussed & documented, pt chose/unable to give Measure #412: Opioid Treatment Agreement: No documentation of signed opioid treatment agreement Measure #408: Opioid Therapy Follow-up Evaluation: Patient had NO f/u eval minimum every 3 months during opioid therapy Measure #317: Preventitive Care & Scrn High Bld Press & F/U: Pre-hypertensive or hypertensive BP documented, pt will f/u with PCP Measure #128: Body Mass Index (BMI) Screening & Follow-up: BMI documented ABOVE normal parameters - f/u documented Measure #131: Pain Assessment & Follow-up: Pain positive & plan documented Measure #431: Unhealthy Alcohol Use Preventative Care & Scrn: Patient not identified as an unhealthy alcohol user PQRS Narrative: Smoking Status Current every day smoker Narcotic Agreement Date Signed 03/14/18 Blood Pressure 137/83 Pain Intensity [Lower Back] 8 Scale Used Numeric (1 - 10) Hx Alcohol Use (MH) No Home Medications: Ambulatory Orders Aspirin 81 mg PO DAILY 04/02/15 Dextroamphetamine/Amphetamine [Adderall] 15 mg PO BID 07/24/15 Ergocalciferol [Vitamin D2] 50,000 unit PO [id number] 09/02/16 Metoprolol Tartrate [Lopressor] 50 mg PO BID 05/09/17 Rosuvastatin Calcium [Crestor] 40 mg PO DAILY 11/22/17 HYDROcodone/APAP 10-325MG [[place] 10-325] 1 tab PO Q12HR PRN 30 Days #60 tab 01/30/19 Controlled Substance Measures - Controlled Substance Measures Is patient prescribed a controlled substance at discharge?: Yes When asked, does pt state using other controlled substances?: No If prescribed controlled substance>3 days was MAPS reviewed?: Yes
== END | disposition home or self-care (01) ==
LOC: PNWHC3 11:07
PROVIDERS: ATTEND Pain Medicine Pain Medicine
DX: G89.29 Other chronic pain (principal); M47.26 Other spondylosis with radiculopathy, lumbar region; F17.200 Nicotine dependence, unspecified, uncomplicated; M79.661 Pain in right lower leg; M79.662 Pain in left lower leg; G62.9 Polyneuropathy, unspecified; R20.0 Anesthesia of skin; Z79.891 Long term (current) use of opiate analgesic; Z79.899 Other long term (current) drug therapy; Z79.4 Long term (current) use of insulin
CPT/HCPCS: 99211

== ENCOUNTER → 2019-02-13 | Outpatient (CLI) | payer OTHER ==
[2019-02-13 13:07] VITALS: BP 131/91; PULSE 68; RESP 18
--- NOTE | 2019-02-13 16:19 | P.PAINPG ---
Subjective Progress Note Date: 02/13/19 This a very pleasant 63-year-old gentleman with a history of intractable back pain as well as bilateral leg pain and neuropathy. He presents today for medication management. He reports he is taking his [place] and it is helping him. He denies any side effects to the medication. He continues to walk on a daily basis to increase his mobility. He also stretches. He denies any bowel or bladder dysfunction. He does report numbness in both legs that is worse on the right. Objective - Vital Signs Vital signs: Vital Signs Temp Pulse 68 02/13/19 13:03 Resp 18 02/13/19 13:03 BP 131/91 02/13/19 13:03 Pulse Ox 94 L 02/13/19 13:03 - Exam Vital Signs: Reviewed in EMR GENERAL: Well appearing, in no acute distress, PSYCH: Mood and affect is appropriate. Awake, alert, and oriented SKIN: Skin color, texture, turgor normal, no rashes or lesions HEENT: Normocephalic, atraumatic. EOM intact CV: No pedal edema RESP: Respirations are unlabored, no audible wheezing GI: Abdomen non-distended MUSCULOSKELETAL: Bilateral upper and lower extremity strength is normal and symmetric. No atrophy or tone abnormalities are noted. Lumbar spine: He does have tenderness to palpation of his lumbar paraspinal muscles, positive first facet loading Buttocks: No pain to palpation over the PSIS, Extremities: Peripheral joint ROM is full and pain free without obvious instabil ity or laxity in all four extremities. No edema or skin discolorations noted. Gait: Gait is anantalgic NEUR: No loss of sensation is noted. Cranial nerves are grossly intact. Assessment and Plan Assessment: Assessment: 1. Lumbar radicular pain 2. Lumbar spondylosis 3. Chronic opiate use Plan: 1. Explanation: Opioid and psychological risk scores were reviewed. Diagnoses, prognoses, and multiple treatment options including but not limited to physical therapy, interventional therapies, adjuvant medical therapies, narcotic medication therapies, and surgery were discussed with the patient and all questions were answered to the patient's satisfaction. 2. Opioid agreement: In place 3. Counseling: The patient was counseled extensively on BODY MASS INDEX, EXERCISE. Specifically, the patient was instructed regarding the importance of weight control, and exercise in the context of both chronic pain and overall health. 4. Procedures: Can revisit epidural steroid injections in 2019 5. Consultations: None 6. Investigations: reviewed 7. Medications: His [place] was refilled 8. Disposition: 8 weeks for medication refill , PQRS Measure Charge Sheet Measure #47: Advance Care Plan: Advance care planning discussed & documented, pt chose/unable to give Measure #412: Opioid Treatment Agreement: Documented signed opioid trtmnt agreemnt min once during opioid trtmnt Measure #408: Opioid Therapy Follow-up Evaluation: Patient had f/u eval minimum every 3 months during opioid therapy Measure #131: Pain Assessment & Follow-up: Pain positive & plan documented, Follow-up scheduled PQRS Narrative: Smoking Status Current every day smoker Narcotic Agreement Date Signed 02/13/19 Blood Pressure 131/91 Pain Intensity [Lower Back] 7 Scale Used Numeric (1 - 10) Hx Alcohol Use (MH) No Home Medications: Ambulatory Orders Aspirin 81 mg PO DAILY 04/02/15 Dextroamphetamine/Amphetamine [Adderall] 15 mg PO BID 07/24/15 Ergocalciferol [Vitamin D2] 50,000 unit PO [id number] 09/02/16 Metoprolol Tartrate [Lopressor] 50 mg PO BID 05/09/17 Rosuvastatin Calcium [Crestor] 40 mg PO DAILY 11/22/17 HYDROcodone/APAP 10-325MG [[place] 10-325] 1 tab PO Q12HR PRN 30 Days #60 tab 05/09/18 Controlled Substance Measures - Controlled Substance Measures Is patient prescribed a controlled substance at discharge?: Yes When asked, does pt state using other controlled substances?: No If prescribed controlled substance>3 days was MAPS reviewed?: Yes If Rx opioid, was Start Talking consent form obtained?: Yes
== END | disposition home or self-care (01) ==
LOC: PNWHC3 12:36
PROVIDERS: ATTEND Student in an Organized Health Care Education/Training Program
DX: M47.26 Other spondylosis with radiculopathy, lumbar region (principal); F17.200 Nicotine dependence, unspecified, uncomplicated; Z79.891 Long term (current) use of opiate analgesic; Z79.82 Long term (current) use of aspirin; Z79.899 Other long term (current) drug therapy
CPT/HCPCS: 80307; G0482; G0463; 99211

== ENCOUNTER → 2019-04-23 | Outpatient (CLI) | payer OTHER ==
[2019-04-23 14:14] VITALS: PULSE 81; RESP 18
--- NOTE | 2019-04-23 20:39 | P.PAINPG ---
Subjective Progress Note Date: 04/23/19 This is follow-up visit for this patient with a history of severe and chronic low back pain secondary to lumbar degenerative disc diseases , lumbar spondylosis with facet arthropathy, We have done interventional pain procedures radiofrequency ablation of the medial branch lumbar area, and lumbar epidural steroid injections Patients currently on [place] 10/325 every 12 hours, (he stopped using Lyrica because he had significant weight gain ) Patient denies any side effects of the medication, denies excessive drowsiness or sleepiness, denies suicidal ideation, and reports that the current pain medication is helping to control the pain ,and improve activity of daily living , reported that his low back pain increased over the last few weeks, it is constant and increases with any activity interfere with the quality of life, The pain is radiating to the lower extremity Patient denies any motor or sensory deficit , patient denies any fever or night sweats, denies any change in the bowel movements or urination Objective - Vital Signs Vital signs: Vital Signs Temp Pulse 81 04/23/19 14:11 Resp 18 04/23/19 14:11 BP Pulse Ox 95 04/23/19 14:11 - Exam Physical Examinations : 1-Constitutional : Cooperative , not in acute distress . 2-HEENT : nech ; supple , no Lymphadenopathy , no Thyromegaly , normal thyroid size . eyes : no ptosis , no icterus, no photophobia . ENT : normal of hearing , normal oropharynx , no Thrush . 3- neurologic: Cranial nerve II to XII intact , no focal neurological deffecit . 4- Psychatric: alert , oriented X 3 , appropriate affect , intact judgment and insight . 5- Lymphatic: no Lymphadenopathy . 6- Musculoskeltal : exams of the Lumber spine =motor strength lower extremities ,thigh and legs .5/5 deep tendon reflexes : normal Knee Jerk , normal ankle Jerk . lumber facet Loading Test positive strait leg raising test positive at 30 degree , RT ,LT , Fabere test positive RT and positive LT . Range of motion: Range of motion in flexion of the lumbar spine 30 degrees Range of motion range of motion of extension of the lumbar spine 10 Assessment and Plan Plan: Assessment and plan = Chronic low back pain secondary to lumbar degenerative disc disease , lumbar spondylosis with facet arthropathy without myelopathy . chronic and current use of high-risk medication (Opioids). The patient was counseled about risk of opioid use, psychological risk associated with opioids and was orally counseled to not overuse , divert,or sell dictations to take medications as prescribed only , and to restore medication in safe location , the patient counseled against driving while using narcotic medications, and also not to use alcohol or any illicit recreational drugs, patient's verbalized understanding that the lack of compliance will result in failure to renew narcotic prescription and possible discharge from the clinic - diagnoses, prognosis, and treatment options including but not limited to physical therapy, surgical interventions, interventional therapies , and medication management including narcotics and adjuvant medication were discussed with the patient and all the questions answered Prescription refill for [place] 10/325 every 8 hours dispense 60 with 1 refill, MAPS reviewed and it was appropriate, UDS reviewed and it was appropriate PQRS Measure Charge Sheet Measure #130: Documentation of Current Meds in Medical Chart: Patient's medications documented in chart Measure #226: Tobacco Use: Screen & Cessation Intervention: Pt screened for tobacco use AND intervention given Measure #111: Pneumonia Vaccination: Pneumococcal vaccine NOT administered or previously given Measure #47: Advance Care Plan: Advance care planning discussed & documented, pt chose/unable to give Measure #412: Opioid Treatment Agreement: Documented signed opioid trtmnt agreemnt min once during opioid trtmnt Measure #408: Opioid Therapy Follow-up Evaluation: Patient had f/u eval minimum every 3 months during opioid therapy Measure #317: Preventitive Care & Scrn High Bld Press & F/U: Normal blood pressure, f/u not required Measure #128: Body Mass Index (BMI) Screening & Follow-up: BMI documented ABOVE normal parameters - f/u documented Measure #131: Pain Assessment & Follow-up: Pain positive & plan documented, Follow-up scheduled Measure #431: Unhealthy Alcohol Use Preventative Care & Scrn: Patient not identified as an unhealthy alcohol user PQRS Narrative: Smoking Status Current every day smoker Narcotic Agreement Date Signed 02/13/19 Pain Intensity [Back] 8 Scale Used Numeric (1 - 10) Hx Alcohol Use (MH) No Home Medications: Ambulatory Orders Aspirin 81 mg PO DAILY 04/02/15 Dextroamphetamine/Amphetamine [Adderall] 15 mg PO BID 07/24/15 Ergocalciferol [Vitamin D2] 50,000 unit PO [id number] 09/02/16 Metoprolol Tartrate [Lopressor] 50 mg PO BID 05/09/17 Rosuvastatin Calcium [Crestor] 40 mg PO DAILY 11/22/17 HYDROcodone/APAP 10-325MG [[place] 10-325] 1 tab PO Q12HR PRN 30 Days #60 tab 05/09/18 Controlled Substance Measures - Controlled Substance Measures Is patient prescribed a controlled substance at discharge?: Yes When asked, does pt state using other controlled substances?: No If prescribed controlled substance>3 days was MAPS reviewed?: Yes If Rx opioid, was Start Talking consent form obtained?: Yes If opioid is for acute pain is fill amount 7 days or less?: No Was information provided regarding opioid addiction?: Yes
== END | disposition home or self-care (01) ==
LOC: PNWHC3 13:28
PROVIDERS: ATTEND Specialist
DX: M51.36 Other intervertebral disc degeneration, lumbar region (principal); M47.816 Spondylosis without myelopathy or radiculopathy, lumbar region; M46.96 Unspecified inflammatory spondylopathy, lumbar region; F17.200 Nicotine dependence, unspecified, uncomplicated; Z79.899 Other long term (current) drug therapy
CPT/HCPCS: 99211

== ENCOUNTER → 2019-06-18 | Outpatient (CLI) | payer OTHER ==
[2019-06-18 12:16] VITALS: BP 125/80; PULSE 70; RESP 18
--- NOTE | 2019-06-18 13:06 | P.PAINPG ---
Subjective Progress Note Date: 06/18/19 This is follow-up visit for this patient with a history of severe and chronic low back pain secondary to lumbar degenerative disc diseases , lumbar spondylosis with facet arthropathy, We have done interventional pain procedures radiofrequency ablation of the medial branch lumbar area, and lumbar epidural steroid injections Patients currently on [place] 10/325 every 12 hours, (he stopped using Lyrica because he had significant weight gain ) Patient denies any side effects of the medication, denies excessive drowsiness or sleepiness, denies suicidal ideation, and reports that the current pain medication is helping to control the pain ,and improve activity of daily living , reported that his low back pain increased over the last few weeks, it is constant and increases with any activity interfere with the quality of life, The pain is radiating to the lower extremity Patient denies any motor or sensory deficit , patient denies any fever or night sweats, patient complaining of some constipation, started over the last couple of months, he reported that he is to have a bowel movement twice a day , currently is having 1 bowel movement every 2-3 days. And he is asking if we can give him prescription for medication to help his constipation, already tried Senokot without benefit Objective - Vital Signs Vital signs: Vital Signs Temp Pulse 70 06/18/19 12:12 Resp 18 06/18/19 12:12 BP 125/80 06/18/19 12:12 Pulse Ox 93 L 06/18/19 12:12 - Exam Physical Examinations : 1-Constitutional : Cooperative , not in acute distress . 2-HEENT : nech ; supple , no Lymphadenopathy , no Thyromegaly , normal thyroid size . eyes : no ptosis , no icterus, no photophobia . ENT : normal of hearing , normal oropharynx , no Thrush . 3- neurologic: Cranial nerve II to XII intact , no focal neurological deffecit . 4- Psychatric: alert , oriented X 3 , appropriate affect , intact judgment and insight . 5- Lymphatic: no Lymphadenopathy . 6- Musculoskeltal : exams of the Lumber spine =motor strength lower extremities ,thigh and legs .5/5 bilaterally deep tendon reflexes : normal Knee Jerk , normal ankle Jerk . lumber facet Loading Test positive strait leg raising test positive at 30 degree , RT ,LT , Fabere test positive RT and positive LT . Range of motion: Range of motion in flexion of the lumbar spine 30 degrees Range of motion range of [place] on of extension of the lumbar spine 10 Assessment and Plan Plan: Assessment and plan = Chronic low back pain secondary to lumbar degenerative disc disease , lumbar spondylosis with facet arthropathy without myelopathy . chronic and current use of high-risk medication (Opioids). The patient was counseled about risk of opioid use, psychological risk associated with opioids and was orally counseled to not overuse , divert,or sell dictations to take medications as prescribed only , and to restore medication in safe location , the patient counseled against driving while using narcotic medications, and also not to use alcohol or any illicit recreational drugs, patient's verbalized understanding that the lack of compliance will result in failure to renew narcotic prescription and possible discharge from the clinic - diagnoses, prognosis, and treatment options including but not limited to physical therapy, surgical interventions, interventional therapies , and medication management including narcotics and adjuvant medication were discussed with the patient and all the questions answered Prescription refill for [place] 10/325 every 8 hours dispense 60 with 1 refill, MAPS reviewed and it was appropriate, Prescription for Colace 2 tablets by mouth daily at bedtime given dispense 60 with 3 refills Patient will follow up in the pain clinic in 2 months Time with Patient: Less than 30 PQRS Measure Charge Sheet Measure #226: Tobacco Use: Screen & Cessation Intervention: Pt screened for tobacco use AND intervention given Measure #111: Pneumonia Vaccination: Pneumococcal vaccine NOT administered or previously given Measure #47: Advance Care Plan: Advance care planning discussed & documented, pt chose/unable to give Measure #412: Opioid Treatment Agreement: Documented signed opioid trtmnt agreemnt min once during opioid trtmnt Measure #408: Opioid Therapy Follow-up Evaluation: Patient had f/u eval minimum every 3 months during opioid therapy Measure #317: Preventitive Care & Scrn High Bld Press & F/U: Normal blood pressure, f/u not required Measure #128: Body Mass Index (BMI) Screening & Follow-up: BMI documented ABOVE normal parameters - f/u documented Measure #131: Pain Assessment & Follow-up: Pain positive & plan documented, Follow-up scheduled Measure #431: Unhealthy Alcohol Use Preventative Care & Scrn: Patient not identified as an unhealthy alcohol user PQRS Narrative: Smoking Status Current every day smoker Narcotic Agreement Date Signed 02/13/19 Blood Pressure 125/80 Pain Intensity [Right Back] 8 Scale Used Numeric (1 - 10) Hx Alcohol Use (MH) No Home Medications: Ambulatory Orders Aspirin 81 mg PO DAILY 04/02/15 Dextroamphetamine/Amphetamine [Adderall] 15 mg PO BID 07/24/15 Ergocalciferol [Vitamin D2] 50,000 unit PO [id number] 09/02/16 Metoprolol Tartrate [Lopressor] 50 mg PO BID 05/09/17 Rosuvastatin Calcium [Crestor] 40 mg PO DAILY 11/22/17 HYDROcodone/APAP 10-325MG [[place] 10-325] 1 tab PO Q12HR PRN 30 Days #60 tab 05/09/18 Controlled Substance Measures - Controlled Substance Measures Is patient prescribed a controlled substance at discharge?: Yes When asked, does pt state using other controlled substances?: No If prescribed controlled substance>3 days was MAPS reviewed?: Yes If Rx opioid, was Start Talking consent form obtained?: Yes If opioid is for acute pain is fill amount 7 days or less?: No Was information provided regarding opioid addiction?: Yes
== END | disposition home or self-care (01) ==
LOC: PNWHC3 11:52
PROVIDERS: ATTEND Specialist
DX: G89.29 Other chronic pain (principal); M51.36 Other intervertebral disc degeneration, lumbar region; M47.816 Spondylosis without myelopathy or radiculopathy, lumbar region; F17.200 Nicotine dependence, unspecified, uncomplicated; Z98.890 Other specified postprocedural states; Z79.82 Long term (current) use of aspirin; Z79.899 Other long term (current) drug therapy
CPT/HCPCS: 99211

== ENCOUNTER → 2019-08-26 | Outpatient (CLI) | payer OTHER ==
--- NOTE | 2019-08-26 11:26 | P.PAINPG ---
Subjective Progress Note Date: 08/26/19 THIS ENCOUNTER WAS PERFORMED A TELEMEDICINE VISIT VIA TWO-WAY AUDIO TO MINIMIZE RISK AND TRANSMISSION OF COVID-19. This is follow-up visit for this patient with a history of severe and chronic low back pain secondary to lumbar degenerative disc diseases , lumbar spondylosis with facet arthropathy, We have done interventional pain procedures in the past including radiofrequency ablation of the medial branch lumbar area, and lumbar epidural steroid injections Patients currently on [place] 10/325 every 12 hours, (he stopped using Lyrica because he had significant weight gain ) Pain located in low back radiating to b/l LE R>L, associated with numbness in b/l LE, described as burning, shooting, throbbing, intermittent, rated as 7- 8/10, worse with activity, sitting, standing for >10 mins, better with rest, medications. He states his right leg has given out a few times. Patient continues to walk for exercise. Patient denies any side effects of the medication, except mild constipation which is helped with Colace, denies excessive drowsiness or sleepiness, denies suicidal ideation, and reports that the current pain medication is helping to control the pain ,and improve activity of daily living Review of systems is negative for chest pain, shortness of breath, new onset weakness, numbness/tingling, abdominal pain, malaise, fever, night sweats, chills, homicidal or suicidal ideation, or bowel or bladder incontinence. Objective Physical exam was unable to be performed audio telemetry medicine revisit Assessment and Plan Plan: Assessment and plan = Chronic low back pain secondary to lumbar degenerative disc disease , lumbar spondylosis with facet arthropathy without myelopathy . chronic and current use of high-risk medication (Opioids). The narcotic contract has been signed and is on file. Maps reviewed and is appropriate. Prescription refill for [place] 10/325 every 8 hours dispense 60 with 1 refill Patient will follow up in the pain clinic in 2 months PQRS Measure Charge Sheet PQRS Narrative: Smoking Status Current every day smoker Narcotic Agreement Date Signed 02/13/19 Hx Alcohol Use (MH) No Home Medications: Ambulatory Orders Aspirin 81 mg PO DAILY 04/02/15 Dextroamphetamine/Amphetamine [Adderall] 15 mg PO BID 07/24/15 Ergocalciferol [Vitamin D2] 50,000 unit PO [id number] 09/02/16 Metoprolol Tartrate [Lopressor] 50 mg PO BID 05/09/17 Rosuvastatin Calcium [Crestor] 40 mg PO DAILY 11/22/17 HYDROcodone/APAP 10-325MG [[place] 10-325] 1 tab PO Q12HR PRN 30 Days #60 tab 05/09/18 Docusate [Colace] 200 mg PO HS 08/23/19 Controlled Substance Measures - Controlled Substance Measures Is patient prescribed a controlled substance at discharge?: Yes When asked, does pt state using other controlled substances?: No If prescribed controlled substance>3 days was MAPS reviewed?: Yes If Rx opioid, was Start Talking consent form obtained?: Yes If opioid is for acute pain is fill amount 7 days or less?: No Was information provided regarding opioid addiction?: Yes
== END | disposition home or self-care (01) ==
LOC: PNWHC3 07:42
PROVIDERS: ATTEND Anesthesiology
DX: Z53.9 Procedure and treatment not carried out, unspecified reason (principal)

== ENCOUNTER → 2019-10-16 | Outpatient (CLI) | payer OTHER ==
--- NOTE | 2019-10-16 14:20 | P.PAINPG ---
Subjective Progress Note Date: 10/16/19 This is follow-up visit for this patient with a history of severe and chronic low back pain secondary to lumbar degenerative disc diseases , lumbar spondylosis with facet arthropathy, We have done interventional pain procedures radiofrequency ablation of the medial branch lumbar area, and lumbar epidural steroid injections Patients currently on [place] 10/325 every 12 hours, (he stopped using Lyrica because he had significant weight gain ) Patient denies any side effects of the medication, denies excessive drowsiness or sleepiness, denies suicidal ideation, and reports that the current pain medication is helping to control the pain ,and improve activity of daily living , reported that his low back pain increased over the last few weeks, it is constant and increases with any activity interfere with the quality of life, The pain is radiating to the lower extremity Patient denies any motor or sensory deficit , patient denies any fever or night sweats, patient complaining of constipation he is taking Colace 2 tablets daily at bedtime . Objective - Vital Signs Vital signs: Vital Signs Temp Pulse 81 10/16/19 13:03 Resp 16 10/16/19 13:03 BP 132/90 10/16/19 13:03 Pulse Ox 99 10/16/19 13:03 - Exam 1-Constitutional : Cooperative , not in acute distress . 2-HEENT : nech ; supple , no Lymphadenopathy , no Thyromegaly , normal thyroid size . eyes : no ptosis , no icterus, no photophobia . ENT : normal of hearing , normal oropharynx , no Thrush . 3- neurologic: Cranial nerve II to XII intact , no focal neurological deffecit . 4- Psychatric: alert , oriented X 3 , appropriate affect , intact judgment and insight . 5- Lymphatic: no Lymphadenopathy . 6- Musculoskeltal : exams of the Lumber spine =motor strength lower extremities ,thigh and legs .5/5 bilaterally deep tendon reflexes : normal Knee Jerk , normal ankle Jerk . lumber facet Loading Test positive strait leg raising test positive at 30 degree , RT ,LT , Fabere test positive RT and positive LT . Range of motion: Range of motion in flexion of the lumbar spine 30 degrees Range of motion range of motion of extension of the lumbar spine 10 Assessment and Plan Plan: Chronic low back pain secondary to lumbar degenerative disc disease , lumbar spondylosis with facet arthropathy without myelopathy . chronic and current use of high-risk medication (Opioids). The patient was counseled about risk of opioid use, psychological risk associated with opioids and was orally counseled to not overuse , divert,or sell dictations to take medications as prescribed only , and to restore medication in safe location , the patient counseled against driving while using narcotic medications, and also not to use alcohol or any illicit recreational drugs, patient's verbalized understanding that the lack of compliance will result in failure to renew narcotic prescription and possible discharge from the clinic - diagnoses, prognosis, and treatment options including but not limited to physical therapy, surgical interventions, interventional therapies , and medication management including narcotics and adjuvant medication were discussed with the patient and all the questions answered Prescription refill for [place] 10/325 every 8 hours dispense 60 with 1 refill, MAPS reviewed and it was appropriate, Time with Patient: Less than 30 PQRS Measure Charge Sheet Measure #130: Documentation of Current Meds in Medical Chart: Patient's medications documented in chart Measure #226: Tobacco Use: Screen & Cessation Intervention: Pt not a tobacco user Measure #111: Pneumonia Vaccination: Pneumococcal vaccine administered or previously received Measure #47: Advance Care Plan: Advance care planning discussed & documented, pt chose/unable to give Measure #412: Opioid Treatment Agreement: Documented signed opioid trtmnt agreemnt min once during opioid trtmnt Measure #408: Opioid Therapy Follow-up Evaluation: Patient had f/u eval minimum every 3 months during opioid therapy Measure #317: Preventitive Care & Scrn High Bld Press & F/U: Pre-hypertensive or hypertensive BP documented, pt will f/u with PCP Measure #128: Body Mass Index (BMI) Screening & Follow-up: BMI documented ABOVE normal parameters - f/u documented Measure #131: Pain Assessment & Follow-up: Pain positive & plan documented, Follow-up scheduled Measure #431: Unhealthy Alcohol Use Preventative Care & Scrn: Patient not identified as an unhealthy alcohol user PQRS Narrative: Smoking Status Current every day smoker Narcotic Agreement Date Signed 10/16/19 Blood Pressure 132/90 Pain Intensity [Lower Back] 7 Scale Used Numeric (1 - 10) Hx Alcohol Use (MH) No Home Medications: Ambulatory Orders Aspirin 81 mg PO DAILY 04/02/15 Dextroamphetamine/Amphetamine [Adderall] 15 mg PO BID 07/24/15 Ergocalciferol [Vitamin D2] 50,000 unit PO [id number] 09/02/16 Metoprolol Tartrate [Lopressor] 50 mg PO BID 05/09/17 Rosuvastatin Calcium [Crestor] 40 mg PO DAILY 11/22/17 Docusate [Colace] 200 mg PO HS #60 cap 08/26/19 HYDROcodone/APAP 10-325MG [[place] 10-325] 1 tab PO Q12HR PRN 30 Days #60 tab 08/26/19 Controlled Substance Measures - Controlled Substance Measures Is patient prescribed a controlled substance at discharge?: Yes When asked, does pt state using other controlled substances?: No If prescribed controlled substance>3 days was MAPS reviewed?: Yes If Rx opioid, was Start Talking consent form obtained?: Yes If opioid is for acute pain is fill amount 7 days or less?: No Was information provided regarding opioid addiction?: Yes
[2019-10-18 09:26] VITALS: BP 132/90; PULSE 81; RESP 16
== END | disposition home or self-care (01) ==
LOC: PNWHC3 12:34
PROVIDERS: ATTEND Specialist
DX: G89.29 Other chronic pain (principal); M51.36 Other intervertebral disc degeneration, lumbar region; M47.816 Spondylosis without myelopathy or radiculopathy, lumbar region; F11.90 Opioid use, unspecified, uncomplicated; F17.200 Nicotine dependence, unspecified, uncomplicated; Z79.82 Long term (current) use of aspirin; Z79.899 Other long term (current) drug therapy
CPT/HCPCS: 80307; G0482; G0463; 99211

== ENCOUNTER → 2019-12-11 | Outpatient (CLI) | payer OTHER ==
[2019-12-11 12:11] VITALS: BP 126/87; PULSE 68; RESP 18; TEMP 98.7
--- NOTE | 2019-12-12 15:05 | P.PAINPG ---
Subjective Progress Note Date: 12/11/19 This is follow-up visit for this patient with a history of severe and chronic low back pain secondary to lumbar degenerative disc diseases , lumbar spondylosis with facet arthropathy, We have done interventional pain procedures radiofrequency ablation of the medial branch lumbar area, and lumbar epidural steroid injections Patients currently on [place] 10/325 every 12 hours, (he stopped using Lyrica because he had significant weight gain ) Patient denies any side effects of the medication, denies excessive drowsiness or sleepiness, denies suicidal ideation, and reports that the current pain medication is helping to control the pain ,and improve activity of daily living , reported that his low back pain increased over the last few weeks, it is constant and increases with any activity interfere with the quality of life, The pain is radiating to the lower extremity patient reported that the intensity of the pain increased over the last few weeks and his currently complaining of severe low back pain which is not managed with the current medication Patient denies any motor or sensory deficit , patient denies any fever or night sweats, patient complaining of constipation he is taking Senokot tablets daily at bedtime . Objective 1-Constitutional : Cooperative , not in acute distress . 2-HEENT : nech ; supple , no Lymphadenopathy , no Thyromegaly , normal thyroid size . eyes : no ptosis , no icterus, no photophobia . ENT : normal of hearing , normal oropharynx , no Thrush . 3- neurologic: Cranial nerve II to XII intact , no focal neurological deffecit . 4- Psychatric: alert , oriented X 3 , appropriate affect , intact judgment and insight . 5- Lymphatic: no Lymphadenopathy . 6- Musculoskeltal : exams of the Lumber spine =motor strength lower extremities ,thigh and legs .5/5 bilaterally deep tendon reflexes : normal Knee Jerk , normal ankle Jerk . lumber facet Loading Test positive bilaterally strait leg raising test positive at 30 degree , RT ,LT , Fabere test positive RT and positive LT . Range of motion: Range of motion in flexion of the lumbar spine 30 degrees Range of motion range of motion of extension of the lumbar spine 10 Assessment and Plan Chronic low back pain secondary to lumbar degenerative disc disease , lumbar spondylosis with facet arthropathy without myelopathy . chronic and current use of high-risk medication (Opioids). The patient was counseled about risk of opioid use, psychological risk associated with opioids and was orally counseled to not overuse , divert,or sell dictations to take medications as prescribed only , and to restore medication in safe location , the patient counseled against driving while using narcotic medications, and also not to use alcohol or any illicit recreational drugs, patient's verbalized understanding that the lack of compliance will result in failure to renew narcotic prescription and possible discharge from the clinic - diagnoses, prognosis, and treatment options including but not limited to physical therapy, surgical interventions, interventional therapies , and medication management including narcotics and adjuvant medication were discussed with the patient and all the questions answered Prescription refill for [place] 10/325 every 8 hours dispense 60 with 1 refill, Senokot 1 tablet by mouth daily MAPS reviewed and it was appropriate, Patient could benefit from repeat RFA of the medial branch lumbar area at L3/L4/L5 to cover the facet joint at L4 5 and L5-S1 Objective - Vital Signs Vital signs: Vital Signs Temp 98.7 F 12/11/19 12:05 Pulse 68 12/11/19 12:05 Resp 18 12/11/19 12:05 BP 126/87 12/11/19 12:05 Pulse Ox 95 12/11/19 12:05 PQRS Measure Charge Sheet Measure #130: Documentation of Current Meds in Medical Chart: Patient's medications documented in chart Measure #226: Tobacco Use: Screen & Cessation Intervention: Pt screened for tobacco use AND intervention given Measure #111: Pneumonia Vaccination: Pneumococcal vaccine administered or previously received Measure #47: Advance Care Plan: Advance care planning discussed & documented, pt chose/unable to give Measure #412: Opioid Treatment Agreement: Documented signed opioid trtmnt agreemnt min once during opioid trtmnt Measure #408: Opioid Therapy Follow-up Evaluation: Patient had f/u eval minimum every 3 months during opioid therapy Measure #317: Preventitive Care & Scrn High Bld Press & F/U: Normal blood pressure, f/u not required Measure #128: Body Mass Index (BMI) Screening & Follow-up: BMI documented ABOVE normal parameters - f/u documented Measure #131: Pain Assessment & Follow-up: Pain positive & plan documented, Follow-up scheduled Measure #431: Unhealthy Alcohol Use Preventative Care & Scrn: Patient not identified as an unhealthy alcohol user PQRS Narrative: Smoking Status Current every day smoker Narcotic Agreement Date Signed 10/16/19 Blood Pressure 126/87 Pain Intensity [Lower Back] 8 Scale Used Numeric (1 - 10) Hx Alcohol Use (MH) No Home Medications: Ambulatory Orders Aspirin 81 mg PO DAILY 04/02/15 Dextroamphetamine/Amphetamine [Adderall] 15 mg PO BID 07/24/15 Ergocalciferol [Vitamin D2] 50,000 unit PO [id number] 09/02/16 Metoprolol Tartrate [Lopressor] 50 mg PO BID 05/09/17 Rosuvastatin Calcium [Crestor] 40 mg PO DAILY 11/22/17 Docusate [Colace] 200 mg PO HS #60 cap 08/26/19 HYDROcodone/APAP 10-325MG [[place] 10-325] 1 tab PO Q12HR PRN 30 Days #60 tab 12/11/19 HYDROcodone/APAP 10-325MG [[place] 10-325] 1 tab PO Q12HR PRN 30 Days #60 tab 12/11/19 Sennosides [Senokot] 8.6 mg PO HS #30 tab 12/11/19 Controlled Substance Measures - Controlled Substance Measures Is patient prescribed a controlled substance at discharge?: Yes
== END | disposition home or self-care (01) ==
LOC: PNWHC3 11:59
PROVIDERS: ATTEND Specialist
DX: M51.36 Other intervertebral disc degeneration, lumbar region (principal); M47.816 Spondylosis without myelopathy or radiculopathy, lumbar region; M46.96 Unspecified inflammatory spondylopathy, lumbar region; F17.200 Nicotine dependence, unspecified, uncomplicated; Z79.891 Long term (current) use of opiate analgesic; Z79.899 Other long term (current) drug therapy; Z79.82 Long term (current) use of aspirin
CPT/HCPCS: 99211

== ENCOUNTER 2020-01-28 05:59 | Day surgery (SDC) | payer OTHER ==
[2020-01-24 11:17] VITALS: BMI 32.7
[2020-01-28] MEDS ORDERED: LACTATED RINGERS 1,000 ML IV SCH (06:37)
[2020-01-28 06:44] VITALS: TEMP 97.8
[2020-01-28] MEDS ORDERED: methylPREDNISolone ACETATE 40 MG/ML 1 ML VIAL ONE (06:57)
[2020-01-28] MEDS ORDERED: LIDOCAINE 1% INJ 10MG/ML (20 ML MDV) ONE (06:57)
[2020-01-28] MEDS ORDERED: ROPIVACAINE 5MG/ML 20ML VIAL ONE (06:57)
[2020-01-28 07:34] VITALS: RESP 16
--- NOTE | 2020-01-28 07:36 | P.PCN ---
Date of Procedure: 01/28/20 Procedure(s) Performed: PREOPERATIVE DIAGNOSIS: 1-Lumbar Spondylosis with Facet Arthropathy without myelopathy. 2- Lumber degenerative disc disease POSTOPERATIVE DIAGNOSIS: 1- Lumbar Spondylosis with Facet Arthropathy without myelopathy. 2- Lumber degenerative disc disease PROCEDURES : Bilateral Radiofrequency thermocoagulation, L3 , L4 , and L5 medial branch, with fluoroscopic guidance (fluoroscopy images available in the radiology department) ( to denervate the facet joint at L4-5 ,and L5-S1 levels ) ANESTHESIA: only local infiltration with Ropivacaine 0.5 % ,no IV sedation. EBL: Minimal PROCEDURE INDICATION: The patient with low back pain secondary to lumbar facet arthropathy who had more than 50% relief of her pain with previous diagnostic lumbar medial branch block with bupivacaine.previously we have done an RFA of the medial branch lumbar area patient gets excellent pain relief and is here today to have a repeat RFA of the medial branch lumbar area PROCEDURE DESCRIPTION / TECHNIQUE: The patient was seen and identified in the preoperative area. Risks, benefits, complications, including but not limited to risk of infection ,bleeding , allergic reactions to the medications and no complete pain releife , and alternatives were discussed with the patient, the patient agreed to proceed with the procedure and signed the consent. IV was started. Vital signs remained stable throughout the procedure. Patient was taken to the OR and time out was completed. The patient was placed in the prone position on the procedure table. The lumber area was prepped and draped in the usual sterile fashion. . Vital signs were closely monitored during the procedure . Using AP and then oblique fluoroscopy, the ``eye of the Sherwin dog corresponding to the connection between the superior and transverse articular processes of right L3, L4, and L5 were identified, marked, and localized with 1% lidocaine. Subsequently, a [id number] radiofrequency cannula with a 10- mm active tip was advanced guided by fluoroscopy to each of the``eyes of the Sherwin dog at right L3, L4, and L5. Each site then underwent sensory testing at 50 Hz and 0 to 1 volt and motor testing at 2.5 Hz and 0 to 3 volt with local stimulation, but no radicular symptoms down the legs. Thereafter each sites underwent radiofrequency thermocoagulation at 80 degrees celsius for 90 seconds after injecting 0.5 ml of PF Ropivacaine 1ml, then after the thermocoagulation done , 1 ml of the block solution containing Depo-Medrol 20 mg and 3 ml of Ropivacaine 0.5% was injected at the right L3 , L4 , and L5 , levels after negative aspiration of CSF and blood and with no paresthesias. Cannulas were retracted while injecting lidocaine 1% until the needle is out. The same procedure was repeated at the level of Left L3, L4, and L5 levels. At the end of the procedure, the skin was cleansed and bandages were applied. COMPLICATIONS: No acute complications. DISPOSITION / PLANS: The patient was placed in a supine position and transferred to the recovery area in a stable condition for observation and was discharged from the recovery room after meeting discharge criteria. Home discharge instructions given to the patient by the staff. The patient was reexamined prior to discharge. The patient will schedule a follow up in the clinic in 2-4 weeks.
[2020-01-28 07:48] VITALS: BP 144/89; PULSE 81
--- NOTE | 2020-01-28 07:52 | FL ---
EXAMINATION TYPE: FL guided pain mgmt statistic DATE OF EXAM: 01/28/2020 FLUOROSCOPY Fluoroscopy time of 15 seconds was used during bilateral radiofrequency ablation. 6 image/s document /s the procedure.
== END 2020-01-28 08:01 | disposition home or self-care (01) ==
LOC: ORPAIN 05:59
PROVIDERS: ATTEND Specialist
DX: M47.816 Spondylosis without myelopathy or radiculopathy, lumbar region (principal); M51.36 Other intervertebral disc degeneration, lumbar region
CPT/HCPCS: 64635; 64636; J1030; J2795

== ENCOUNTER → 2020-02-05 | Outpatient (CLI) | payer OTHER ==
[2020-02-05 08:36] VITALS: BP 146/90; PULSE 73; RESP 20; TEMP 98.4
--- NOTE | 2020-02-05 09:03 | P.PAINPG ---
Subjective Progress Note Date: 02/05/20 Eddie is a 64-year-old gentleman presented today for follow-up and medication refill. He reports his been doing okay with the current medication regimen. He feels he has chronic back pain and is comfortable with the amount of medication. He is using [place] 2 times a day. He denies any side effects of medication. He's had radiofrequency ablation lumbar spine which does offer him benefit. He does not have back surgery. He feels his VAS today is about 5 out of 10. He is limited in what he can do but does much as possible. He is not working at this time. Objective - Vital Signs Vital signs: Vital Signs Temp 98.4 F 02/05/20 08:34 Pulse 73 02/05/20 08:34 Resp 20 02/05/20 08:34 BP 146/90 02/05/20 08:34 Pulse Ox 95 02/05/20 08:34 - Exam General: Awake and alert oriented 3 no distress Respiratory exam: No audible wheezing no accessory muscle usage Cardiovascular exam: regular rate, palpable bilateral pulses, no lower extremity edema Abdominal exam: No distention nontender to palpation Cervical spine: Normal alignment, Spurling's negative, facet loading negative, D[place] Rider strength is 5/5, pickett negative Lumbar spine: Loss of lumbar lordosis, normal alignment, tender to palpation over bilateral paraspinal muscles, facet loading is positive bilaterally. Straight leg raise is negative. Limited range of motion due to pain with flexion, extension and side bending. Sacroiliac joints: Nontender to palpation, KELLIE is negative, Gaenselon negative Neuro exam: Normal sensation in bilateral upper extremities, deep tendon reflexes are 2+ bilateral upper extremities. Normal sensation in bilateral lower extremities. Deep tendon reflexes are 1+ in lower extremities Psych exam: Cooperative, appropriate mood Assessment and Plan Assessment: #1 lumbar spondylosis without myelopathy #2 lumbar radiculopathy #3 chronic opioid dependence Plan: We'll continue the current medication regimen continue follow-up with the patient regularly. We will continue monitor his progress slowly. We will repeat the injections as needed. PQRS Measure Charge Sheet Measure #130: Documentation of Current Meds in Medical Chart: Patient's medications documented in chart Measure #226: Tobacco Use: Screen & Cessation Intervention: Pt screened for tobacco use AND intervention given Measure #111: Pneumonia Vaccination: Pneumococcal vaccine administered or previously received Measure #47: Advance Care Plan: Advance care planning discussed & documented, plan or surrogate given Measure #412: Opioid Treatment Agreement: Documented signed opioid trtmnt agreemnt min once during opioid trtmnt Measure #408: Opioid Therapy Follow-up Evaluation: Patient had f/u eval minimum every 3 months during opioid therapy Measure #317: Preventitive Care & Scrn High Bld Press & F/U: Normal blood pressure, f/u not required Measure #128: Body Mass Index (BMI) Screening & Follow-up: BMI documented ABOVE normal parameters - f/u documented Measure #131: Pain Assessment & Follow-up: Pain positive & plan documented Measure #431: Unhealthy Alcohol Use Preventative Care & Scrn: Patient not identified as an unhealthy alcohol user PQRS Narrative: Smoking Status Current every day smoker Narcotic Agreement Date Signed 10/16/19 Blood Pressure 146/90 Pain Intensity [Back] 7 Scale Used Numeric (1 - 10) Hx Alcohol Use (MH) No Home Medications: Ambulatory Orders Aspirin 81 mg PO DAILY 04/02/15 Dextroamphetamine/Amphetamine [Adderall] 15 mg PO BID 07/24/15 Ergocalciferol [Vitamin D2] 50,000 unit PO [id number] 09/02/16 Metoprolol Tartrate [Lopressor] 50 mg PO BID 05/09/17 Rosuvastatin Calcium [Crestor] 40 mg PO DAILY 11/22/17 HYDROcodone/APAP 10-325MG [[place] 10-325] 1 tab PO Q12HR PRN 30 Days #60 tab 02/05/20 HYDROcodone/APAP 10-325MG [[place] 10-325] 1 tab PO Q8HR PRN 30 Days #90 tab 02/05/20 Sennosides [Senokot] 8.6 mg PO BID PRN #60 tab 02/05/20 Controlled Substance Measures - Controlled Substance Measures Is patient prescribed a controlled substance at discharge?: Yes When asked, does pt state using other controlled substances?: No If prescribed controlled substance>3 days was MAPS reviewed?: Yes If Rx opioid, was Start Talking consent form obtained?: Yes If opioid is for acute pain is fill amount 7 days or less?: No Was information provided regarding opioid addiction?: Yes
== END | disposition home or self-care (01) ==
LOC: PNWHC3 08:19
PROVIDERS: ATTEND Hospitalist
DX: M47.26 Other spondylosis with radiculopathy, lumbar region (principal); F11.20 Opioid dependence, uncomplicated; F17.210 Nicotine dependence, cigarettes, uncomplicated; Z79.899 Other long term (current) drug therapy; Z79.82 Long term (current) use of aspirin
CPT/HCPCS: 99211

== ENCOUNTER → 2020-03-30 | Outpatient (CLI) | payer OTHER ==
[2020-03-30 12:14] VITALS: BP 131/78; PULSE 75; RESP 18
--- NOTE | 2020-03-30 12:31 | P.PN ---
Subjective Progress Note Date: 03/30/20 This is follow-up visit for this patient with a history of severe and chronic low back pain secondary to lumbar degenerative disc diseases , lumbar spondylosis with facet arthropathy, Previously we have done interventional pain procedures, radiofrequency ablation of the medial branch lumbar area, and lumbar epidural steroid injections Patients currently on [place] 10/325 every 12 hours, (he stopped using Lyrica because he had significant weight gain ) Patient denies any side effects of the medication, denies excessive drowsiness or sleepiness, denies suicidal ideation, and reports that the current pain medication is helping to control the pain ,and improve activity of daily living , reported that his low back pain increased over the last few weeks, it is constant and increases with any activity interfere with the quality of life, Patient denies any motor or sensory deficit , patient denies any fever or night sweats, patient complaining of constipation he is taking Senokot tablets daily at bedtime . Objective - Vital Signs Vital signs: Vital Signs Temp Pulse 75 03/30/20 12:11 Resp 18 03/30/20 12:11 BP 131/78 03/30/20 12:11 Pulse Ox 96 03/30/20 12:11 - Exam Physical Examinations : -Constitutiona : Cooperative , not in acute distress . -HEENT : nech : supple , no Lymphadenopathy , normal thyroid size . : eyes : no ptosis , no icterus, no photophobia . - neurologic : Cranial nerve II to XII intact , no focal neurological deffecit . -psychatric : alert , oriented X 3 , appropriate affect , intact judgment and insight . -Lymphatic : no Lymphadenopathy . - musculoskeltal : Lumber spine moter stegnth lower extremities ,thigh and legs 5/5 Right side , 5/5 Left side deep tendon reflexes : normal Knee Jerk , normal ankle Jerk lumber facet Loading Test =positive Right , positive Left Range of motion of the lumbar spine Flexion 30 degrees, extension 10 degrees strait leg raising test = positive at 30 degree Fabere test= positive Right , and positive LT . Sever tenderness over the Sacroiliac joint on the Right , and Left sides Gaenslen test= positive right ,and positive left . Seated flexion test= positive right ,and positive Left . Assessment and Plan Plan: Assessment and Plan Chronic low back pain secondary to lumbar degenerative disc disease , lumbar spondylosis with facet arthropathy without myelopathy . chronic and current use of high-risk medication (Opioids). The patient was counseled about risk of opioid use, psychological risk associated with opioids and was orally counseled to not overuse , divert,or sell dictations to take medications as prescribed only , and to restore medication in safe location , the patient counseled against driving while using narcotic medications, and also not to use alcohol or any illicit recreational drugs, patient's verbalized understanding that the lack of compliance will result in failure to renew narcotic prescription and possible discharge from the clinic - diagnoses, prognosis, and treatment options including but not limited to physical therapy, surgical interventions, interventional therapies , and medication management including narcotics and adjuvant medication were discussed with the patient and all the questions answered Prescription refill for [place] 10/325 every 8 hours dispense 60 with 1 refill, MAPS reviewed and it was appropriate. urine drug screen ordered today PQRS Measure Charge Sheet Measure #130: Documentation of Current Meds in Medical Chart: Patient's medications documented in chart Measure #226: Tobacco Use: Screen & Cessation Intervention: Pt screened for tobacco use AND intervention given Measure #111: Pneumonia Vaccination: Pneumococcal vaccine administered or previously received Measure #47: Advance Care Plan: Advance care planning discussed & documented, pt chose/unable to give Measure #412: Opioid Treatment Agreement: Documented signed opioid trtmnt agreemnt min once during opioid trtmnt Measure #408: Opioid Therapy Follow-up Evaluation: Patient had f/u eval minimum every 3 months during opioid therapy Measure #317: Preventitive Care & Scrn High Bld Press & F/U: Normal blood pressure, f/u not required Measure #128: Body Mass Index (BMI) Screening & Follow-up: BMI documented ABOVE normal parameters - f/u documented Measure #131: Pain Assessment & Follow-up: Pain positive & plan documented, Follow-up scheduled Measure #431: Unhealthy Alcohol Use Preventative Care & Scrn: Patient not identified as an unhealthy alcohol user PQRS Narrative: Time with Patient: Less than 30
== END | disposition home or self-care (01) ==
LOC: PNWHC3 12:02
PROVIDERS: ATTEND Specialist
DX: G89.29 Other chronic pain (principal); M51.36 Other intervertebral disc degeneration, lumbar region; M47.816 Spondylosis without myelopathy or radiculopathy, lumbar region
CPT/HCPCS: 80307; G0482; G0463; 99212

== ENCOUNTER → 2020-05-25 | Outpatient (CLI) | payer OTHER ==
[2020-05-25 08:20] VITALS: BP 124/81; PULSE 78; RESP 18; TEMP 98.8
--- NOTE | 2020-05-25 08:38 | P.PN ---
Subjective Progress Note Date: 05/25/20 This is follow-up visit for this patient with a history of severe and chronic low back pain secondary to lumbar degenerative disc diseases , lumbar spondylosis with facet arthropathy, Previously we have done interventional pain procedures, radiofrequency ablation of the medial branch lumbar area, and lumbar epidural steroid injections Patients currently on [place] 10/325 every 12 hours, (he stopped using Lyrica because he had significant weight gain ) and to use selected twice a day to prevent constipation Patient denies any side effects of the medication, denies excessive drowsiness or sleepiness, denies suicidal ideation, and reports that the current pain medication is helping to control the pain ,and improve activity of daily living , reported that his low back pain increased over the last few weeks, it is constant and increases with any activity interfere with the quality of life, Patient denies any motor or sensory deficit , patient denies any fever or night sweats, patient complaining of constipation he is taking Senokot tablets daily at bedtime . Physical Examinations : -Constitutiona : Cooperative , not in acute distress . -HEENT : nech : supple , no Lymphadenopathy , normal thyroid size . : eyes : no ptosis , no icterus, no photophobia . - neurologic : Cranial nerve II to XII intact , no focal neurological deffecit . -psychatric : alert , oriented X 3 , appropriate affect , intact judgment and insight . -Lymphatic : no Lymphadenopathy . - musculoskeltal : Lumber spine moter stegnth lower extremities ,thigh and legs 5/5 Right side , 5/5 Left side deep tendon reflexes : normal Knee Jerk , normal ankle Jerk lumber facet Loading Test =positive Right , positive Left Range of motion of the lumbar spine Flexion 30 degrees, extension 10 degrees strait leg raising test = positive at 30 degree Fabere test= positive Right , and positive LT . Sever tenderness over the Sacroiliac joint on the Right , and Left sides Gaenslen test= positive right ,and positive left . Seated flexion test= positive right ,and positive Left Assessment and Plan Chronic low back pain secondary to lumbar degenerative disc disease , lumbar spondylosis with facet arthropathy without myelopathy . chronic and current use of high-risk medication (Opioids). The patient was counseled about risk of opioid use, psychological risk associated with opioids and was orally counseled to not overuse , divert,or sell dictations to take medications as prescribed only , and to restore medication in safe location , the patient counseled against driving while using narcotic medications, and also not to use alcohol or any illicit recreational drugs, patient's verbalized understanding that the lack of compliance will result in failure to renew narcotic prescription and possible discharge from the clinic - diagnoses, prognosis, and treatment options including but not limited to physical therapy, surgical interventions, interventional therapies , and medication management including narcotics and adjuvant medication were discussed with the patient and all the questions answered Prescription refill for [place] 10/325 every 8 hours dispense 60 with 1 refill, Senokot one tablet by mouth twice a day dispense 60 with 5 refills MAPS viewed and it was appropriate urine drug screen reviewed today, it was okay PQRS Measure Charge Sheet Measure #130: Documentation of Current Meds in Medical Chart: Patient's medications documented in chart Measure #226: Tobacco Use: Screen & Cessation Intervention: Pt screened for tobacco use AND intervention given Measure #111: Pneumonia Vaccination: Pneumococcal vaccine administered or previously received Measure #47: Advance Care Plan: Advance care planning discussed & documented, pt chose/unable to give Measure #412: Opioid Treatment Agreement: Documented signed opioid trtmnt agreemnt min once during opioid trtmnt Measure #408: Opioid Therapy Follow-up Evaluation: Patient had f/u eval minimum every 3 months during opioid therapy Measure #317: Preventitive Care & Scrn High Bld Press & F/U: Normal blood pressure, f/u not required Measure #128: Body Mass Index (BMI) Screening & Follow-up: BMI documented ABOVE normal parameters - f/u documented Measure #131: Pain Assessment & Follow-up: Pain positive & plan documented, Follow-up scheduled Measure #431: Unhealthy Alcohol Use Preventative Care & Scrn: Patient not identified as an unhealthy alcohol user PQRS Narrative: Time with Patient: Less than 30 Objective - Vital Signs Vital signs: Vital Signs Temp 98.8 F 05/25/20 08:11 Pulse 78 05/25/20 08:11 Resp 18 05/25/20 08:11 BP 124/81 05/25/20 08:11 Pulse Ox 95 05/25/20 08:11
== END | disposition home or self-care (01) ==
LOC: PNWHC3 07:44
PROVIDERS: ATTEND Specialist
DX: M51.36 Other intervertebral disc degeneration, lumbar region (principal); M47.816 Spondylosis without myelopathy or radiculopathy, lumbar region; G89.29 Other chronic pain; Z79.891 Long term (current) use of opiate analgesic
CPT/HCPCS: 99211

== ENCOUNTER → 2020-07-20 | Outpatient (CLI) | payer OTHER ==
--- NOTE | 2020-07-20 08:08 | P.PN ---
Subjective Progress Note Date: 07/20/20 This is follow-up visit for this patient with a history of severe and chronic low back pain secondary to lumbar degenerative disc diseases , lumbar spondylosis with facet arthropathy, Pain is controlled between interventional pain management and medication management , previously we have done , radiofrequency ablation of the medial branch lumbar area, and lumbar epidural steroid injections Patients currently on L[place] 10/325 every 12 hours, (he stopped using Lyrica because he had significant weight gain ) and he take Senokot to prevent constipation Patient denies any side effects of the medication, denies excessive drowsiness or sleepiness, denies suicidal ideation, and reports that the current pain medication is helping to control the pain ,and improve activity of daily living , reported that his low back pain increased over the last few weeks, it is constant and increases with any activity interfere with the quality of life, Patient denies any motor or sensory deficit , patient denies any fever or night sweats, patient complaining of constipation he is taking Senokot tablets daily at bedtime .Recently patient reported that he has difficulty sleeping at the night Physical Examinations : -Constitutiona : Cooperative , not in acute distress . -HEENT : nech : supple , no Lymphadenopathy , normal thyroid size . : eyes : no ptosis , no icterus, no photophobia . - neurologic : Cranial nerve II to XII intact , no focal neurological deffecit . -psychatric : alert , oriented X 3 , appropriate affect , intact judgment and insight . -Lymphatic : no Lymphadenopathy . - musculoskeltal : Lumber spine moter stegnth lower extremities ,thigh and legs 5/5 Right side , 5/5 Left side deep tendon reflexes : normal Knee Jerk , normal ankle Jerk lumber facet Loading Test =positive Right , positive Left Range of motion of the lumbar spine Flexion 30 degrees, extension 10 degrees strait leg raising test = positive at 30 degree Fabere test= positive Right , and positive LT . Sever tenderness over the Sacroiliac joint on the Right , and Left sides Gaenslen test= positive right ,and positive left . Seated flexion test= positive right ,and positive Left Assessment and Plan Chronic low back pain secondary to lumbar degenerative disc disease , lumbar spondylosis with facet arthropathy without myelopathy . chronic and current use of high-risk medication (Opioids). The patient was counseled about risk of opioid use, psychological risk associated with opioids and was orally counseled to not overuse , divert,or sell dictations to take medications as prescribed only , and to restore medication in safe location , the patient counseled against driving while using narcotic medications, and also not to use alcohol or any illicit recreational drugs, patient's verbalized understanding that the lack of compliance will result in failure to renew narcotic prescription and possible discharge from the clinic - diagnoses, prognosis, and treatment options including but not limited to physical therapy, surgical interventions, interventional therapies , and medication management including narcotics and adjuvant medication were discussed with the patient and all the questions answered Prescription refill for L[place] 10/325 every 8 hours dispense 60 with 1 refill, continue Senokot one tablet by mouth twice a day She was advised to use melatonin 5 mg daily at bedtime [id number] to help him sleep MAPS viewed and it was appropriate urine drug screen ordered today PQRS Measure Charge Sheet Measure #130: Documentation of Current Meds in Medical Chart: Patient's medications documented in chart Measure #226: Tobacco Use: Screen & Cessation Intervention: Pt screened for tobacco use AND intervention given Measure #111: Pneumonia Vaccination: Pneumococcal vaccine administered or previously received Measure #47: Advance Care Plan: Advance care planning discussed & documented, pt chose/unable to give Measure #412: Opioid Treatment Agreement: Documented signed opioid trtmnt agreemnt min once during opioid trtmnt Measure #408: Opioid Therapy Follow-up Evaluation: Patient had f/u eval minimum every 3 months during opioid therapy Measure #317: Preventitive Care & Scrn High Bld Press & F/U: Normal blood pressure, f/u not required Measure #128: Body Mass Index (BMI) Screening & Follow-up: BMI documented ABOVE normal parameters - f/u documented Measure #131: Pain Assessment & Follow-up: Pain positive & plan documented, Follow-up scheduled Measure #431: Unhealthy Alcohol Use Preventative Care & Scrn: Patient not i dentified as an unhealthy alcohol user PQRS Narrative: Time with Patient: Less than 30
[2020-07-20 08:12] VITALS: BP 119/89; PULSE 68; RESP 18; TEMP 98.3
== END ==
LOC: PNWHC3 07:35
PROVIDERS: ATTEND Specialist
DX: M47.816 Spondylosis without myelopathy or radiculopathy, lumbar region (principal); M51.36 Other intervertebral disc degeneration, lumbar region; G89.29 Other chronic pain; Z79.891 Long term (current) use of opiate analgesic; F17.200 Nicotine dependence, unspecified, uncomplicated
CPT/HCPCS: 80307; G0482; G0463; 99212

== ENCOUNTER → 2020-09-14 | Outpatient (CLI) | payer OTHER ==
--- NOTE | 2020-09-14 08:10 | P.PN ---
Subjective Progress Note Date: 09/14/20 This is follow-up visit for this patient with a history of severe and chronic low back pain secondary to lumbar degenerative disc diseases , lumbar spondylosis with facet arthropathy, Pain is controlled between interventional pain management and medication management , last year we have done , radiofrequency ablation of the medial branch lumbar area, and lumbar epidural steroid injections Patients currently on [place] 10/325 every 12 hours, (he stopped using Lyrica because he had significant weight gain ) and he take Senokot to prevent constipation Patient denies any side effects of the medication, denies excessive drowsiness or sleepiness, denies suicidal ideation, and reports that the current pain medication is helping to control the pain ,and improve activity of daily living , reported that his low back pain increased over the last few weeks, it is constant and increases with any activity interfere with the quality of life, Patient denies any motor or sensory deficit , patient denies any fever or night sweats, patient complaining of constipation he is taking Senokot tablets daily at bedtime .Recently patient reported that he has difficulty sleeping at the night, patient reported that his pain increased recently and is questioning if he can repeat RFA to help his pain, he shouldn't reported that he gets significant improvement of his pain after each radiofrequency ablation of the medial branch, and his activity of daily living improved significantly after the radiofrequency Physical Examinations : -Constitutiona : Cooperative , not in acute distress . -HEENT : nech : supple , no Lymphadenopathy , normal thyroid size . : eyes : no ptosis , no icterus, no photophobia . - neurologic : Cranial nerve II to XII intact , no focal neurological deffecit . -psychatric : alert , oriented X 3 , appropriate affect , intact judgment and insight . -Lymphatic : no Lymphadenopathy . - musculoskeltal : Lumber spine moter stegnth lower extremities ,thigh and legs 5/5 Right side , 5/5 Left side deep tendon reflexes : normal Knee Jerk , normal ankle Jerk lumber facet Loading Test =positive Right , positive Left Range of motion of the lumbar spine Flexion 30 degrees, extension 10 degrees strait leg raising test = positive at 30 degree Fabere test= positive Right , and positive LT . Sever tenderness over the Sacroiliac joint on the Right , and Left sides Gaenslen test= positive right ,and positive left . Seated flexion test= positive right ,and positive Left Assessment and Plan Chronic low back pain secondary to lumbar degenerative disc disease , lumbar spondylosis with facet arthropathy without myelopathy . chronic and current use of high-risk medication (Opioids). The patient was counseled about risk of opioid use, psychological risk associated with opioids and was orally counseled to not overuse , divert,or sell dictations to take medications as prescribed only , and to restore medication in safe location , the patient counseled against driving while using narcotic medications, and also not to use alcohol or any illicit recreational drugs, patient's verbalized understanding that the lack of compliance will result in failure to renew narcotic prescription and possible discharge from the clinic - diagnoses, prognosis, and treatment options including but not limited to physical therapy, surgical interventions, interventional therapies , and medication management including narcotics and adjuvant medication were discussed with the patient and all the questions answered Prescription refill for [place] 10/325 every 8 hours dispense 60 with 1 refill, continue Senokot one tablet by mouth twice a day UDS reviewed and it was OK MAPS viewed and it was appropriate Schink benefit from repeat RFA of the medial branch lumbar area at L3 ,L4 ,L5 bilaterally PQRS Measure Charge Sheet Measure #130: Documentation of Current Meds in Medical Chart: Patient's medications documented in chart Measure #226: Tobacco Use: Screen & Cessation Intervention: Pt screened for tobacco use AND intervention given Measure #111: Pneumonia Vaccination: Pneumococcal vaccine administered or pr eviously received Measure #47: Advance Care Plan: Advance care planning discussed & documented, pt chose/unable to give Measure #412: Opioid Treatment Agreement: Documented signed opioid trtmnt agreemnt min once during opioid trtmnt Measure #408: Opioid Therapy Follow-up Evaluation: Patient had f/u eval minimum every 3 months during opioid therapy Measure #317: Preventitive Care & Scrn High Bld Press & F/U: Normal blood pressure, f/u not required Measure #128: Body Mass Index (BMI) Screening & Follow-up: BMI documented ABOVE normal parameters - f/u documented Measure #131: Pain Assessment & Follow-up: Pain positive & plan documented, Follow-up scheduled Measure #431: Unhealthy Alcohol Use Preventative Care & Scrn: Patient not identified as an unhealthy alcohol user
[2020-09-14 08:16] VITALS: BP 130/86; PULSE 69; RESP 18; TEMP 99.1
== END ==
LOC: PNWHC3 07:27
PROVIDERS: ATTEND Specialist
DX: M51.36 Other intervertebral disc degeneration, lumbar region (principal); M47.816 Spondylosis without myelopathy or radiculopathy, lumbar region; G89.29 Other chronic pain; F17.200 Nicotine dependence, unspecified, uncomplicated; Z79.891 Long term (current) use of opiate analgesic
CPT/HCPCS: 99211

== ENCOUNTER → 2020-11-16 | Outpatient (CLI) | payer OTHER ==
[2020-11-16 07:48] VITALS: PULSE 60; RESP 18; TEMP 98
--- NOTE | 2020-11-24 15:14 | P.PAINPG ---
Subjective Progress Note Date: 11/16/20 This is follow-up visit for this patient with a history of severe and chronic low back pain secondary to lumbar degenerative disc diseases , lumbar spondylosis with facet arthropathy, Pain is controlled between interventional pain management and medication management , last year we have done , radiofrequency ablation of the medial branch lumbar area, and lumbar epidural steroid injections Patients currently on [place] 10/325 every 12 hours, (he stopped using Lyrica because he had significant weight gain ) and he take Senokot to prevent constipation Patient denies any side effects of the medication, denies excessive drowsiness or sleepiness, denies suicidal ideation, Patient denies any motor or sensory deficit , patient denies any fever or night sweats, patient complaining of constipation he is taking Senokot tablets daily at bedtime . In our last visit we discussed repeating RFA at L4-5 and L5-S1 bilaterally which he was agreeable with and is scheduled for on 11/27. At this time his main concern is a new pain that started 2 weeks ago with no inciting event on the right side with radiation down to the right leg dominantly. He does also have pain and left leg but it is minimal compared to the right. Pain is located in the low back and in the anterior thigh and describes weakness and significant pain that is limiting his functionality. The worst part of the pain is his lack of sleep as he is sleeping only 2-3 hours a night. Currently 9 out of 10. Physical Examinations : -Constitutiona : Cooperative , not in acute distress . -HEENT : nech : supple , no Lymphadenopathy , normal thyroid size . : eyes : no ptosis , no icterus, no photophobia . - neurologic : Cranial nerve II to XII intact , no focal neurological deffecit . -psychatric : alert , oriented X 3 , appropriate affect , intact judgment and insight . -Lymphatic : no Lymphadenopathy . - musculoskeltal : Lumber spine moter stegnth lower extremities ,thigh and legs 4/5 Right side , 3-4/5 Left side deep tendon reflexes : 1+ Knee Jerk , 1+ ankle Jerk lumber facet Loading Test =positive Right , positive Left Range of motion of the lumbar spine Flexion 30 degrees, extension 10 degrees strait leg raising test = positive at 30 degree Fabere test= positive Right , and positive LT . Assessment and Plan Chronic low back pain secondary to lumbar degenerative disc disease , lumbar spondylosis with facet arthropathy without myelopathy . chronic and current use of high-risk medication (Opioids). The patient was counseled about risk of opioid use, psychological risk associated with opioids and was orally counseled to not overuse , divert,or sell dictations to take medications as prescribed only , and to restore medication in safe location , the patient counseled against driving while using narcotic medications, and also not to use alcohol or any illicit recreational drugs, patient's verbalized understanding that the lack of compliance will result in failure to renew narcotic prescription and possible discharge from the clinic - diagnoses, prognosis, and treatment options including but not limited to physical therapy, surgical interventions, interventional therapies , UDS reviewed and it was OK MAPS viewed and it was appropriate and medication management including narcotics and adjuvant medication were discussed with the patient and all the questions answered Prescription refill for [place] 10/325 every 8 hours dispense 60 with 1 refill, continue Senokot one tablet by mouth twice a day. Given His new pain I also ordered a repeat MRI to assess for any central canal or neural foramen stenosis. Started him on gabapentin 300 mg at night as well as Flexeril 5 mg at night and warned him about the sedating qualities of these medications. He mentions he'll take them carefully and only after 6 PM to avoid significant sedation. We will see him back in a month to discuss his MRI and whether we need to up titrate the gabapentin. I have spent 32 minutes on patient care today. The time was used to review the medical records including relevant urine studies and prescription history, review of the available imaging, evaluation and examination of the patient, coordination of care with the medical staff and if applicable referring physicians, as well as creation of the medical record. PQRS Measure Charge Sheet Measure #130: Documentation of Current Meds in Medical Chart: Patient's medications documented in chart Measure #226: Tobacco Use: Screen & Cessation Intervention: Pt screened for tobacco use AND intervention given Measure #111: Pneumonia Vaccination: Pneumococcal vaccine administered or previously received Measure #47: Advance Care Plan: Advance care planning discussed & documented, pt chose/unable to give Measure #412: Opioid Treatment Agreement: Documented signed opioid trtmnt agreemnt min once during opioid trtmnt Measure #408: Opioid Therapy Follow-up Evaluation: Patient had f/u eval minimum every 3 months during opioid therapy Measure #317: Preventitive Care & Scrn High Bld Press & F/U: Normal blood pressure, f/u not required Measure #128: Body Mass Index (BMI) Screening & Follow-up: BMI documented ABOVE normal parameters - f/u documented Measure #131: Pain Assessment & Follow-up: Pain positive & plan documented, Follow-up scheduled Measure #431: Unhealthy Alcohol Use Preventative Care & Scrn: Patient not identified as an unhealthy alcohol user PQRS Measure Charge Sheet PQRS Narrative: Smoking Status Current every day smoker Narcotic Agreement Date Signed 10/27/20 Hx Alcohol Use (MH) Yes: RARE Home Medications: Ambulatory Orders Aspirin 81 mg PO DAILY 04/02/15 Dextroamphetamine/Amphetamine [Adderall] 15 mg PO BID 07/24/15 Ergocalciferol [Vitamin D2] 50,000 unit PO [id number] 09/02/16 Metoprolol Tartrate [Lopressor] 50 mg PO BID 05/09/17 Rosuvastatin Calcium [Crestor] 40 mg PO DAILY 11/22/17 Omeprazole 20 mg PO DAILY PRN 09/08/20 Sennosides [Senokot] 8.6 mg PO BID PRN #60 tab 09/14/20 Cyclobenzaprine [Flexeril] 5 mg PO HS 30 Days #30 tab 11/16/20 Gabapentin 300 mg PO HS 30 Days #30 cap 11/16/20 HYDROcodone/APAP 10-325MG [[place] 10-325] 1 tab PO Q12H PRN 30 Days #60 tab 11/16/20 HYDROcodone/APAP 10-325MG [[place] 10-325] 1 tab PO Q12HR PRN 30 Days #60 tab 11/16/20 Controlled Substance Measures - Controlled Substance Measures Is patient prescribed a controlled substance at discharge?: Yes When asked, does pt state using other controlled substances?: No If prescribed controlled substance>3 days was MAPS reviewed?: Yes If Rx opioid, was Start Talking consent form obtained?: Yes If opioid is for acute pain is fill amount 7 days or less?: No Was information provided regarding opioid addiction?: No
== END ==
LOC: PNWHC3 07:27
PROVIDERS: ATTEND Anesthesiology
DX: M51.36 Other intervertebral disc degeneration, lumbar region (principal); M47.816 Spondylosis without myelopathy or radiculopathy, lumbar region; G89.29 Other chronic pain; F17.200 Nicotine dependence, unspecified, uncomplicated; Z79.891 Long term (current) use of opiate analgesic
CPT/HCPCS: 99211

== ENCOUNTER 2020-11-27 07:30 | Day surgery (SDC) | payer OTHER ==
--- NOTE | 2020-11-16 08:06 | P.PAINPG ---
Subjective Progress Note Date: 11/16/20 This is follow-up visit for this patient with a history of severe and chronic low back pain secondary to lumbar degenerative disc diseases , lumbar spondylosis with facet arthropathy, Pain is controlled between interventional pain management and medication management , last year we have done , radiofrequency ablation of the medial branch lumbar area, and lumbar epidural steroid injections Patients currently on [place] 10/325 every 12 hours, (he stopped using Lyrica because he had significant weight gain ) and he take Senokot to prevent constipation Patient denies any side effects of the medication, denies excessive drowsiness or sleepiness, denies suicidal ideation, Patient denies any motor or sensory deficit , patient denies any fever or night sweats, patient complaining of constipation he is taking Senokot tablets daily at bedtime . In our last visit we discussed repeating RFA at L4-5 and L5-S1 bilaterally which he was agreeable with and is scheduled for on 11/27. At this time his main concern is a new pain that started 2 weeks ago with no inciting event on the right side with radiation down to the right leg dominantly. He does also have pain and left leg but it is minimal compared to the right. Pain is located in the low back and in the anterior thigh and describes weakness and significant pain that is limiting his functionality. The worst part of the pain is his lack of sleep as he is sleeping only 2-3 hours a night. Currently 9 out of 10. Physical Examinations : -Constitutiona : Cooperative , not in acute distress . -HEENT : nech : supple , no Lymphadenopathy , normal thyroid size . : eyes : no ptosis , no icterus, no photophobia . - neurologic : Cranial nerve II to XII intact , no focal neurological deffecit . -psychatric : alert , oriented X 3 , appropriate affect , intact judgment and insight . -Lymphatic : no Lymphadenopathy . - musculoskeltal : Lumber spine moter stegnth lower extremities ,thigh and legs 4/5 Right side , 3-4/5 Left side deep tendon reflexes : 1+ Knee Jerk , 1+ ankle Jerk lumber facet Loading Test =positive Right , positive Left Range of motion of the lumbar spine Flexion 30 degrees, extension 10 degrees strait leg raising test = positive at 30 degree Fabere test= positive Right , and positive LT . Assessment and Plan Chronic low back pain secondary to lumbar degenerative disc disease , lumbar spondylosis with facet arthropathy without myelopathy . chronic and current use of high-risk medication (Opioids). The patient was counseled about risk of opioid use, psychological risk associated with opioids and was orally counseled to not overuse , divert,or sell dictations to take medications as prescribed only , and to restore medication in safe location , the patient counseled against driving while using narcotic medications, and also not to use alcohol or any illicit recreational drugs, patient's verbalized understanding that the lack of compliance will result in failure to renew narcotic prescription and possible discharge from the clinic - diagnoses, prognosis, and treatment options including but not limited to physical therapy, surgical interventions, interventional therapies , UDS reviewed and it was OK MAPS viewed and it was appropriate and medication management including narcotics and adjuvant medication were discussed with the patient and all the questions answered Prescription refill for [place] 10/325 every 8 hours dispense 60 with 1 refill, continue Senokot one tablet by mouth twice a day. Given His new pain I also ordered a repeat MRI to assess for any central canal or neural foramen stenosis. Started him on gabapentin 300 mg at night as well as Flexeril 5 mg at night and warned him about the sedating qualities of these medications. He mentions he'll take them carefully and only after 6 PM to avoid significant sedation. We will see him back in a month to discuss his MRI and whether we need to up titrate the gabapentin. I have spent 32 minutes on patient care today. The time was used to review the medical records including relevant urine studies and prescription history, review of the available imaging, evaluation and examination of the patient, coordination of care with the medical staff and if applicable referring physicians, as well as creation of the medical record. PQRS Measure Charge Sheet Measure #130: Documentation of Current Meds in Medical Chart: Patient's medications documented in chart Measure #226: Tobacco Use: Screen & Cessation Intervention: Pt screened for tobacco use AND intervention given Measure #111: Pneumonia Vaccination: Pneumococcal vaccine administered or previously received Measure #47: Advance Care Plan: Advance care planning discussed & documented, pt chose/unable to give Measure #412: Opioid Treatment Agreement: Documented signed opioid trtmnt agreemnt min once during opioid trtmnt Measure #408: Opioid Therapy Follow-up Evaluation: Patient had f/u eval minimum every 3 months during opioid therapy Measure #317: Preventitive Care & Scrn High Bld Press & F/U: Normal blood pressure, f/u not required Measure #128: Body Mass Index (BMI) Screening & Follow-up: BMI documented ABOVE normal parameters - f/u documented Measure #131: Pain Assessment & Follow-up: Pain positive & plan documented, Follow-up scheduled Measure #431: Unhealthy Alcohol Use Preventative Care & Scrn: Patient not identified as an unhealthy alcohol user PQRS Measure Charge Sheet PQRS Narrative: Smoking Status Current every day smoker Narcotic Agreement Date Signed 10/27/20 Hx Alcohol Use (MH) Yes: RARE Home Medications: Ambulatory Orders Aspirin 81 mg PO DAILY 04/02/15 Dextroamphetamine/Amphetamine [Adderall] 15 mg PO BID 07/24/15 Ergocalciferol [Vitamin D2] 50,000 unit PO [id number] 09/02/16 Metoprolol Tartrate [Lopressor] 50 mg PO BID 05/09/17 Rosuvastatin Calcium [Crestor] 40 mg PO DAILY 11/22/17 Omeprazole 20 mg PO DAILY PRN 09/08/20 Sennosides [Senokot] 8.6 mg PO BID PRN #60 tab 09/14/20 Cyclobenzaprine [Flexeril] 5 mg PO HS 30 Days #30 tab 11/16/20 Gabapentin 300 mg PO HS 30 Days #30 cap 11/16/20 HYDROcodone/APAP 10-325MG [[place] 10-325] 1 tab PO Q12H PRN 30 Days #60 tab 11/16/20 HYDROcodone/APAP 10-325MG [[place] 10-325] 1 tab PO Q12HR PRN 30 Days #60 tab 11/16/20 Controlled Substance Measures - Controlled Substance Measures Is patient prescribed a controlled substance at discharge?: Yes When asked, does pt state using other controlled substances?: No If prescribed controlled substance>3 days was MAPS reviewed?: Yes If Rx opioid, was Start Talking consent form obtained?: Yes If opioid is for acute pain is fill amount 7 days or less?: No Was information provided regarding opioid addiction?: No
[2020-11-25 12:37] VITALS: BMI 32.1
[2020-11-27 07:49] VITALS: TEMP 97.8
[2020-11-27] MEDS ORDERED: methylPREDNISolone ACETATE 40 MG/ML 1 ML VIAL ONE (08:16)
[2020-11-27] MEDS ORDERED: ROPIVACAINE 5MG/ML 20ML VIAL ONE (08:16)
--- NOTE | 2020-11-27 08:49 | P.PCN ---
Date of Procedure: 11/27/20 Procedure(s) Performed: PREOPERATIVE DIAGNOSIS: 1-Lumbar Spondylosis with Facet Arthropathy without myelopathy. 2- Lumber degenerative disc disease POSTOPERATIVE DIAGNOSIS: 1- Lumbar Spondylosis with Facet Arthropathy without myelopathy. 2- Lumber degenerative disc disease PROCEDURES : Bilateral Radiofrequency thermocoagulation, L3 , L4 , and L5 medial branch, with fluoroscopic guidance (fluoroscopy images available in the radiology department) ( to denervate the facet joint at L4-5 ,and L5-S1 levels ) ANESTHESIA: only local infiltration with Ropivacaine 0.5 % ,no IV sedation. EBL: Minimal PROCEDURE INDICATION: The patient with low back pain secondary to lumbar facet arthropathy who had more than 50% relief of her pain with previous diagnostic lumbar medial branch block with bupivacaine.previously we have done an RFA of the medial branch lumbar area patient gets excellent pain relief and is here today to have a repeat RFA of the medial branch lumbar area PROCEDURE DESCRIPTION / TECHNIQUE: The patient was seen and identified in the preoperative area. Risks, benefits, complications, including but not limited to risk of infection ,bleeding , allergic reactions to the medications and no complete pain releife , and alternatives were discussed with the patient, the patient agreed to proceed with the procedure and signed the consent. IV was started. Vital signs remained stable throughout the procedure. Patient was taken to the OR and time out was completed. The patient was placed in the prone position on the procedure table. The lumber area was prepped and draped in the usual sterile fashion. . Vital signs were closely monitored during the procedure . Using AP and then oblique fluoroscopy, the ``eye of the Sherwin dog corresponding to the connection between the superior and transverse articular processes of right L3, L4, and L5 were identified, marked, and localized with 1% lidocaine. Subsequently, a 18 xceai290-ty radiofrequency cannula with a 10- mm active tip was advanced guided by fluoroscopy to each of the``eyes of the Sherwin dog at right L3, L4, and L5. Each site then underwent sensory testing at 50 Hz and 0 to 1 volt and motor testing at 2.5 Hz and 0 to 3 volt with local stimulation, but no radicular symptoms down the legs. Thereafter each sites underwent radiofrequency thermocoagulation at 80 degrees celsius for 90 seconds after injecting 0.5 ml of PF Ropivacaine 1ml, then after the thermocoagulation done , 1 ml of the block solution containing Depo-Medrol 20 mg and 3 ml of Ropivacaine 0.5% was injected at the right L3 , L4 , and L5 , levels after negative aspiration of CSF and blood and with no paresthesias. Cannulas were retracted while injecting lidocaine 1% until the needle is out. The same procedure was repeated at the level of Left L3, L4, and L5 levels. At the end of the procedure, the skin was cleansed and bandages were applied. COMPLICATIONS: No acute complications. DISPOSITION / PLANS: The patient was placed in a supine position and transferred to the recovery area in a stable condition for observation and was discharged from the recovery room after meeting discharge criteria. Home discharge instructions given to the patient by the staff. The patient was reexamined prior to discharge. The patient will schedule a follow up in the clinic in 2-4 weeks.
[2020-11-27 08:55] VITALS: BP 117/74; PULSE 58; RESP 20
--- NOTE | 2020-11-27 08:56 | FL ---
EXAMINATION TYPE: FL guided pain mgmt statistic DATE OF EXAM: 11/27/2020 CLINICAL HISTORY: Low back pain. TECHNIQUE: Fluoroscopy. COMPARISON: None. FINDINGS: Fluoroscopic guidance was provided during pain relief procedure performed by Dr. Ramsey . A total of 12 seconds of fluoroscopic time was utilized during the procedure and 7 spot images are acquired. Images acquired shows needle localization at several levels in the lumbar spine. IMPRESSION: As Above.
== END 2020-11-27 09:05 | disposition home or self-care (01) ==
LOC: ORPAIN 07:30
PROVIDERS: ATTEND Specialist
DX: M47.816 Spondylosis without myelopathy or radiculopathy, lumbar region (principal); M51.36 Other intervertebral disc degeneration, lumbar region
CPT/HCPCS: 64635; 64636 ×2; J1030; J2795

== ENCOUNTER → 2020-12-11 | Outpatient (CLI) | payer OTHER ==
--- NOTE | 2020-12-11 08:00 | MR ---
EXAMINATION TYPE: MR lumbar spine wo con DATE OF EXAM: 12/11/2020 COMPARISON: MRI lumbar spine April 18, 2017 HISTORY: New onset low back pain TECHNIQUE: Multiplanar, multisequence imaging of the lumbar spine is performed without IV contrast. FINDINGS: Sagittal images of the lumbar spine show vertebral body heights and alignment to remains st able. Slight grade 1 retrolisthesis L1 on L2 and L2 on L3. Prominent Schmorl node inferior L1 endplat e is redemonstrated. Multilevel disc desiccation is present. There is mild moderate multilevel disc s pace narrowing with relative sparing of the L3-L4 and L4-L5 levels similar to prior. The conus medul michelle remains stable in position and signal ending inferior L1 level. The bone marrow signal intensi ty is within normal limits. Mild to moderate multilevel anterior spurring is redemonstrated. Axial images show the T12-L1 level to remain within normal limits. Axial images at the L1-L2 level show stable mild broad disc bulge minimally effacing anterior thecal sac, bilateral neural foramina are patent. No significant change from prior. Axial images at L2-L3 level show moderate broad disc bulge mildly effacing anterior thecal sac with m ild bilateral anterior inferior neural foraminal narrowing. No significant change from prior. Axial images at L3-L4 level shows mild broad disc bulge and mild facet arthropathy bilaterally. The s mildred canal is preserved and bilateral neural foramina are patent. Findings stable from prior. Axial images at L4-L5 level redemonstrate mild facet degenerative changes bilaterally. There is mild broad based disc protrusion. Spinal canal is preserved. Mild bilateral neural foraminal narrowing. No significant change from prior. Axial images at L5-S1 level remain within normal limits. No suspicious retroperitoneal findings are seen. IMPRESSION: Multilevel degenerative changes in lumbar spine as detailed above. No significant degener ative progression from prior MRI.
== END | disposition home or self-care (01) ==
LOC: RADMRIMAIN 06:12
PROVIDERS: ATTEND Anesthesiology
DX: M51.26 Other intervertebral disc displacement, lumbar region (principal); M47.816 Spondylosis without myelopathy or radiculopathy, lumbar region; M99.73 Connective tissue and disc stenosis of intervertebral foramina of lumbar region
CPT/HCPCS: 72148

== ENCOUNTER → 2020-12-16 | Outpatient (CLI) | payer OTHER ==
[2020-12-16 07:42] VITALS: BP 125/87; PULSE 74; RESP 18; TEMP 98.3
--- NOTE | 2020-12-16 07:52 | P.PN ---
Subjective Progress Note Date: 12/16/20 This is follow-up visit for this 64 years old patient with history of severe, and chronic low back pain secondary to lumbar degenerative disc diseases , lumbar spondylosis with facet arthropathy,the Pain controlled between interventional pain management and medication management , floyd we have done , radiofrequency ablation of the medial branch lumbar area Patients currently on [place] 10/325 every 12 hours,neurontin 300 mg QHS, Flexeril 5 mg QHS (he stopped using Lyrica because he had significant weight gain ) and he take Senokot to prevent constipation Patient denies any side effects of the medication, denies excessive drowsiness or sleepiness, denies suicidal ideation, Patient denies any motor or sensory deficit , patient denies any fever or night sweats, patient complaining of constipation he is taking Senokot tablets daily at bedtime Physical Examinations : -Constitutiona : Cooperative , not in acute distress . -HEENT : nech : supple , no Lymphadenopathy , normal thyroid size . : eyes : no ptosis , no icterus, no photophobia . - neurologic : Cranial nerve II to XII intact , no focal neurological deffecit . -psychatric : alert , oriented X 3 , appropriate affect , intact judgment and insight . -Lymphatic : no Lymphadenopathy . - musculoskeltal : Lumber spine moter stegnth lower extremities ,thigh and legs 4/5 Right side , 3-4/5 Left side deep tendon reflexes : 1+ Knee Jerk , 1+ ankle Jerk Range of motion of the lumbar spine Flexion 30 degrees, extension 10 degrees strait leg raising test = positive at 30 degree Fabere test= positive Right , and positive LT . Assessment and Plan Chronic low back pain secondary to lumbar degenerative disc disease , lumbar spondylosis with facet arthropathy without myelopathy . chronic and current use of high-risk medication (Opioids). The patient was counseled about risk of opioid use, psychological risk associated with opioids and was orally counseled to not overuse , divert,or sell dictations to take medications as prescribed only , and to restore medication in safe location , the patient counseled against driving while using narcotic medications, and also not to use alcohol or any illicit recreational drugs, patient's verbalized understanding that the lack of compliance will result in failure to renew narcotic prescription and possible discharge from the clinic - diagnoses, prognosis, and treatment options including but not limited to physical therapy, surgical interventions, interventional therapies , UDS reviewed and it was OK MAPS viewed and it was appropriate and medication management including narcotics and adjuvant medication were discussed with the patient and all the questions answered refill for [place] 10/325 every 8 hours dispense 60 with 1 refill, continue Senokot one tablet by mouth twice a day. gabapentin 300 mg at night as well as Flexeri PQRS Measure Charge Sheet Measure #130: Documentation of Current Meds in Medical Chart: Patient's medications documented in chart Measure #226: Tobacco Use: Screen & Cessation Intervention: Pt screened for tobacco use AND intervention given Measure #111: Pneumonia Vaccination: Pneumococcal vaccine administered or previously received Measure #47: Advance Care Plan: Advance care planning discussed & documented, pt chose/unable to give Measure #412: Opioid Treatment Agreement: Documented signed opioid trtmnt agreemnt min once during opioid trtmnt Measure #408: Opioid Therapy Follow-up Evaluation: Patient had f/u eval minimum every 3 months during opioid therapy Measure #317: Preventitive Care & Scrn High Bld Press & F/U: Normal blood p ressure, f/u not required Measure #128: Body Mass Index (BMI) Screening & Follow-up: BMI documented ABOVE normal parameters - f/u documented Measure #131: Pain Assessment & Follow-up: Pain positive & plan documented, Follow-up scheduled Measure #431: Unhealthy Alcohol Use Preventative Care & Scrn: Patient not identified as an unhealthy alcohol user Objective - Vital Signs Vital signs: Vital Signs Temp 98.3 F 12/16/20 07:31 Pulse 74 12/16/20 07:31 Resp 18 12/16/20 07:31 BP 125/87 12/16/20 07:31 Pulse Ox 94 L 12/16/20 07:31
== END ==
LOC: PNWHC3 07:28
PROVIDERS: ATTEND Specialist
DX: M47.816 Spondylosis without myelopathy or radiculopathy, lumbar region (principal); M51.36 Other intervertebral disc degeneration, lumbar region; G89.29 Other chronic pain; F17.200 Nicotine dependence, unspecified, uncomplicated; Z79.891 Long term (current) use of opiate analgesic
CPT/HCPCS: 99211

== ENCOUNTER → 2021-02-10 | Outpatient (CLI) | payer OTHER ==
[2021-02-10 08:09] VITALS: BP 129/91; PULSE 80; RESP 18
--- NOTE | 2021-02-10 15:42 | P.PN ---
Subjective Progress Note Date: 02/10/21 This is follow-up visit for this 64 years old patient with history of severe, and chronic low back pain secondary to lumbar degenerative disc diseases , lumbar spondylosis with facet arthropathy. Presently still having pain in his lower back with pain radiating down his legs to the top of his feet. He reports the right side is greater than the left. Today's reporting pain a 7 out of 10 on a 0-to-10 scale. His normal pain is around 4 out of 10. His last radiofrequency ablation helped him for several weeks however that is beginning to lessen his pain. He describes his pain as a numbness throbbing sensation in his legs. Pain is worse with certain positions, walking, sitting, and excessive standing. It is better with his medications, procedures, home stretching and occasional ice. Physical therapy in the past with limited relief. He currently takes Belva 10 mg every 12 hours. He also takes gabapentin 300 mg at night. He also takes Flexeril 5 mg at night and Senokot 8.6 mg during the day. When he initially started taking the gabapentin he felt like it did offer some benefit with the numbness in his legs. Discussed increasing his gabapentin to 3 times a day for the neuropathic pain advised to begin the first week which is taking 1 in the morning and one in the evening. If he had no adverse effects with the medication after the second week continue taking gabapentin 300 mg 3 times a day. Objective - Exam Physical Examinations : -Constitutiona : Cooperative , not in acute distress . -HEENT : nech : supple , no Lymphadenopathy , normal thyroid size . : eyes : no ptosis , no icterus, no photophobia . - neurologic : Cranial nerve II to XII intact , no focal neurological deffecit . -psychatric : alert , oriented X 3 , appropriate affect , intact judgment and insight . -Lymphatic : no Lymphadenopathy . - musculoskeltal : Cervical Spine motor stregnth in the deltoid and biceps, normal right side , normal Left side motor stregnth biceps and the wrist extensors normal right side ,normal left side . motor stregnth in the triceps muscle . normal Right side , normal Left side deep tendon reflexes normal at the biceps , normal at Brachioradialis , normal at triceps. cervical facet loading test: Positive Bilaterally Spurling test= positive Right , positive left. Neck distraction test= positive Right , positive left. Lumber spine moter stegnth lower extremities ,thigh and legs 5/5 Right side , 5/5 Left side deep tendon reflexes : normal Knee Jerk , normal ankle Jerk lumber facet Loading Test =positive Right , positive Left Range of motion of the lumbar spine Flexion 30 degrees, extension 10 degrees strait leg raising test = positive at degree Fabere test= positive Right , and positive LT . Sever tenderness over the Sacroiliac joint on the Right , and Left sides Gaenslen test= positive right ,and positive left . Seated flexion test= positive right ,and positive Left . Distraction test= positive bilaterally Sacroiliac compression test= positive bilaterally Assessment and Plan Assessment: Assessment and plan Chest: Chronic low back pain secondary to lumbar degenerative disc disease , lumbar spondylosis with facet arthropathy without myelopathy . chronic and current use of high-risk medication (Opioids). The patient was counseled about risk of opioid use, psychological risk associated with opioids and was orally counseled to not overuse , divert,or sell dictations to take medications as prescribed only , and to restore medication in safe location , the patient counseled against driving while using narcotic medications, and also not to use alcohol or any illicit recreational drugs, patient's verbalized understanding that the lack of compliance will result in failure to renew narcotic prescription and possible discharge from the clinic - diagnoses, prognosis, and treatment options including but not limited to physical therapy, surgical interventions, interventional therapies , UDS reviewed and it was OK MAPS viewed and it was appropriate and medication management including narcotics and adjuvant medication were discussed with the patient and all the questions answered refill for [place] 10/325 every 8 hours dispense 60 with 1 refill, continue Senokot one tablet by mouth twice a day. gabapentin 300 mg at night as well as Flexeri - PQRS measures = - Patient's medications are documented in the chart. -Tobacco use is positive -Patient's has not received pneumococcal vaccine. -Advanced care planning discussed, patient not eligible. -Opiate contract signed. -Pain positive and follow-up visit/procedure is scheduled. -Patient's blood pressure measured 129/91 , and documented in the record ,and patient will follow up with the primary care. -Patient was not identified as an unhealthy alcohol user Time with Patient: Less than 30
== END ==
LOC: PNWHC3 07:32
PROVIDERS: ATTEND Student in an Organized Health Care Education/Training Program
DX: M51.36 Other intervertebral disc degeneration, lumbar region (principal); M47.816 Spondylosis without myelopathy or radiculopathy, lumbar region; G89.29 Other chronic pain; F17.200 Nicotine dependence, unspecified, uncomplicated; Z79.891 Long term (current) use of opiate analgesic
CPT/HCPCS: 99211

== ENCOUNTER → 2021-04-07 | Outpatient (CLI) | payer OTHER ==
[2021-04-07 07:58] VITALS: BP 154/94; PULSE 79; RESP 18; TEMP 98.5
--- NOTE | 2021-04-07 08:02 | P.PN ---
Subjective Progress Note Date: 04/07/21 This is follow-up visit for this 64 years old patient with history of severe, and chronic low back pain secondary to lumbar degenerative disc diseases , lumbar spondylosis with facet arthropathy. Presently still having pain in his lower back with pain radiating down his legs to the top of his feet. He reports the right side is greater than the left. Today's reporting pain a 7 out of 10 on a 0-to-10 scale. His normal pain is around 4 out of 10. He describes his pain as a numbness throbbing sensation in his legs. Pain is worse with certain positions, walking, sitting, and excessive standing. It is better with his medications, procedures, home stretching and occasional ice. Physical therapy in the past with limited relief. He currently takes [place] 10/325 mg every 12 hours PRN . He also takes gabapentin 300 mg Q 8 hours. He also takes Flexeril 5 mg at night ,and Senokot 8.6 mg twice daily . Denies any side effect of the medication he denies any excessive drowsiness or sleepiness, he reported the current medication helping him to control his pain. Physical Examinations : -Constitutiona : Cooperative , not in acute distress . -HEENT : nech : supple , no Lymphadenopathy , normal thyroid size . : eyes : no ptosis , no icterus, no photophobia . - neurologic : Cranial nerve II to XII intact , no focal neurological deffecit . -psychatric : alert , oriented X 3 , appropriate affect , intact judgment and insight . -Lymphatic : no Lymphadenopathy . - musculoskeltal : Lumber spine moter stegnth lower extremities ,thigh and legs 5/5 Right side , 5/5 Left side deep tendon reflexes : normal Knee Jerk , normal ankle Jerk lumber facet Loading Test =positive Right , positive Left Range of motion of the lumbar spine Flexion 30 degrees, extension 10 degrees strait leg raising test = positive at degree Fabere test= positive Right , and positive LT . Sever tenderness over the Sacroiliac joint on the Right , and Left sides Gaenslen test= positive right ,and positive left . Seated flexion test= positive right ,and positive Left . Distraction test= positive bilaterally Sacroiliac compression test= positive bilaterally MRI of the lumbar spine done in December 2020= L2-3 and L3 4 L4 5 lumbar degenerative disc disease and lumbar facet arthropathy and lumbar stenosis at L2-3 and L4 5 Assessment and plan= Chronic low back pain secondary to lumbar degenerative disc disease , lumbar spondylosis with facet arthropathy without myelopathy . chronic and current use of high-risk medication (Opioids). The patient was counseled about risk of opioid use, psychological risk associated with opioids and was orally counseled to not overuse , divert,or sell dictations to take medications as prescribed only , and to restore medication in safe location , the patient counseled against driving while using narcotic medications, and also not to use alcohol or any illicit recreational drugs, patient's verbalized understanding that the lack of compliance will result in failure to renew narcotic prescription and possible discharge from the clinic - diagnoses, prognosis, and treatment options including but not limited to physical therapy, surgical interventions, interventional therapies , UDS ordered today MAPS viewed and it was appropriate and medication management including narcotics and adjuvant medication were discussed with the patient and all the questions answered refill for [place] 10/325 every 8 hours dispense 60 with 1 refill, continue Senokot one tablet by mouth twice a day. gabapentin 300 mg , TID , Flexeri,sennakot - PQRS measures = - Patient's medications are documented in the chart. -Tobacco use is positive -Patient's has not received pneumococcal vaccine. -Advanced care planning discussed, patient not eligible. -Opiate contract signed. -Pain positive and follow-up visit/procedure is scheduled. -Patient's blood pressure measured 154/94 , and documented in the record ,and patient will follow up with the primary care. -Patient was not identified as an unhealthy alcohol user Time with Patient: Less than 30
== END ==
LOC: PNWHC3 07:28
PROVIDERS: ATTEND Specialist
DX: M51.36 Other intervertebral disc degeneration, lumbar region (principal); M47.816 Spondylosis without myelopathy or radiculopathy, lumbar region; G89.29 Other chronic pain; Z79.891 Long term (current) use of opiate analgesic; F17.200 Nicotine dependence, unspecified, uncomplicated
CPT/HCPCS: 80307; G0482; G0463; 99212

== ENCOUNTER → 2021-06-02 | Outpatient (CLI) | payer OTHER ==
[2021-06-02 07:54] VITALS: BP 115/84; PULSE 71; RESP 18; TEMP 98.2
--- NOTE | 2021-06-02 08:02 | P.PN ---
Subjective Progress Note Date: 06/02/21 Principal diagnosis: A 65 yr old male with a history of severe and chronic low back pain secondary to lumbar degenerative disc diseases and lumbar spondylosis with facet arthropathy presents today for occasional refills. She states his pain level is 8 out of 10 in intensity, sore, burning and tight in the lower aspects of his lumbar spine that radiates left and right of midline on the paraspinal muscles bilaterally along with right sided shooting pain and weakness down the right lower extremity. Pain is provoked by standing for periods of 30 minutes or lifting and bending. Pain is alleviated with medications, injections, physical therapy in the past, home daily exercise regimen, walking, repositioning and rest. Interventional pain procedures completed include LESIs and RFA of the lumbar spine Patient is currently on [place] 10/325, Neurontin 300 mg, Flexeril 5 mg, Senokot Patient denies any side effects of the medication(s), denies excessive drowsiness or sleepiness, denies suicidal ideation and reports that the current pain medication is helping to control the pain and improve activities of daily living. Patient denies any motor or sensory deficits. Patient denies any fever or night sweats, denies any change in the bowel movements or urination. Physical Examination: -Constitutional: Cooperative. Not in acute distress . -HEENT: Neck is supple. No lymphadenopathy. No thyromegaly. Normal thyroid size. Eyes: No ptosis , no icterus, no photophobia. ENT: No auditory deficits. Normal oropharynx. No Thrush. - Respiratory: Chest clear to auscultations bilaterally. No wheezing. No rhonchi. - Cardiovascular: Regular rate and rhythm. S1 / S2 , no S3 , no S4. - Gastrointestinal: Abdomen soft no tenderness. Bowel sounds positive in all four quadrants. No organomegaly. - Genitourinary: Deferred. - Neurologic: Cranial nerve II to XII intact. No focal neurological deficits. - Psychatric: Alert & oriented x 3. Matching mood & appropriate affect. Judgment and insight intact. - Lymphatic: No Lymphadenopathy. - Musculoskeletal: Cervical spine: Muscle bulk/ tone/ strength in the bilateral upper extremities normal. Facet loading test cervical area positive. Lumbar spine: Motor bulk/ tone/ strength lower extremities , thigh and legs : 5/5 Deep tendon reflexes : Normal Knee Jerk. Normal Ankle Jerk . Vertebral body tenderness to palpation over L5 Lumbar Facet Loading Test positive over the L4-L5 and L5-S1 bilaterally Straight Leg Raise: positive at 30 degrees right side/ left side Gaenslen's Test positive Sacral spine : Severe tenderness over the Sacroiliac joint: right side / left side Range of motion: Flexion of the lumbar spine <60 degrees Range of motion: Extension of the lumbar spine <20 degrees Gaenslen's Test positive Manuela test: positive right side / left side Assessment and plan: Chronic low back pain secondary to lumbar degenerative disc disease , lumbar spondylosis with facet arthropathy without myelopathy Chronic and current use of high-risk medication (Opioids). The patient was counseled about risk of opioid use, psychological risk associated with opioids and was orally counseled to not overuse , divert or sell medications. Pt is to store medication in a safe location. The patient is counseled against driving while using narcotic medications and also not to use alcohol or any illicit recreational drugs. Patient verbalized understanding that the lack of compliance will result in failure to renew narcotic prescription(s) as well as possible discharge from the clinic Diagnoses, prognosis and treatment options including but not limited to physical therapy, surgical interventions, interventional therapies and medication management including narcotics and adjuvant medication were discussed. All patient questions answered UDS from March, reviewed and was consistent Opiate agreement from November, up-to-date MAPS reviewed and it was appropriate. Prescription refill for [place] 10/325 #60 with 1 refill, Neurontin 300 mg #90 with 1 refill, Senokot when necessary. Patient still has ample supply of Flexeril. I have spent 31 minutes on patient care today. Dr Ramsey was available by phone for the evaluation of this patient. The time was used to review the medical records including relevant urine studies and Prescription history (MAPs), review of the available imaging, evaluation and examination of the patient, coordination of care with the medical staff and if applicable referring physicians, as well as creation of the medical record Objective - Vital Signs Vital signs: Vital Signs Temp 98.2 F 06/02/21 07:49 Pulse 71 06/02/21 07:49 Resp 18 06/02/21 07:49 BP 115/84 06/02/21 07:49 Pulse Ox 97 06/02/21 07:49 PQRS Measure Charge Sheet Mode of Arrival: Ambulatory - Pain Location Lower Back Non-Pharmacological Interventions: Heat, Ice, Position/Reposition Pharmacological Interventions: PRN Medication PQRS Narrative: Smoking Status Current every day smoker Narcotic Agreement Date Signed 11/16/20 Blood Pressure 115/84 Pain Intensity [Lower Back] 8 Scale Used Numeric (1 - 10) Hx Alcohol Use (MH) Yes: RARE Home Medications: Ambulatory Orders Aspirin 81 mg PO DAILY 04/02/15 Dextroamphetamine/Amphetamine [Adderall] 15 mg PO BID 07/24/15 Ergocalciferol [Vitamin D2] 50,000 unit PO [id number] 09/02/16 Metoprolol Tartrate [Lopressor] 50 mg PO BID 05/09/17 Rosuvastatin Calcium [Crestor] 40 mg PO DAILY 11/22/17 Omeprazole 20 mg PO DAILY PRN 09/08/20 Cyclobenzaprine [Flexeril] 5 mg PO HS 30 Days #30 tab 04/07/21 Gabapentin 300 mg PO TID 30 Days #90 cap 06/02/21 HYDROcodone/APAP 10-325MG [[place] 10-325] 1 tab PO Q12HR PRN 30 Days #60 tab 06/02/21 HYDROcodone/APAP 10-325MG [[place] 10-325] 1 tab PO Q12HR PRN 30 Days #60 tab 06/02/21 Sennosides [Senokot] 8.6 mg PO BID PRN #60 tab 06/02/21
== END ==
LOC: PNWHC3 07:12
PROVIDERS: ATTEND Physician Assistant Medical
DX: M51.36 Other intervertebral disc degeneration, lumbar region (principal); M47.816 Spondylosis without myelopathy or radiculopathy, lumbar region; G89.29 Other chronic pain; Z79.891 Long term (current) use of opiate analgesic; F17.200 Nicotine dependence, unspecified, uncomplicated
CPT/HCPCS: 99211

== ENCOUNTER → 2021-07-28 | Outpatient (CLI) | payer OTHER ==
--- NOTE | 2021-07-28 08:40 | P.PN ---
Subjective Progress Note Date: 07/28/21 Principal diagnosis: A 65 yr old male with a history of severe and chronic low back pain secondary to lumbar degenerative disc diseases and lumbar spondylosis with facet arthropathy presents today for occasion refills. Pain level is currently at 8 out of 10 in intensity, pulsating, achy pain in the lower aspects of his lumbar spine which radiates left or right of midline and shoots to lower extremities with occasional numbness. Pain is provoked by sitting, standing and bending. Pain is alleviated with medications, injections, ice, heat, physical therapy 3 years ago which made pain worse, home-based stretching regimen and rest. Patient is currently on [place] 10/325, Neurontin 300 mg, Senokot 8.6 mg prn, Flexeril 10 mg daily at bedtime prn Patient denies any side effects of the medication(s), denies excessive drowsiness or sleepiness, denies suicidal ideation and reports that the current pain medication is helping to control the pain and improve activities of daily living. Patient denies any motor or sensory deficits. Patient denies any fever or night sweats, denies any change in the bowel movements or urination. Physical Examination: -Constitutional: Cooperative. Not in acute distress . -HEENT: Neck is supple. No lymphadenopathy. No thyromegaly. Normal thyroid size. Eyes: No ptosis , no icterus, no photophobia. ENT: No auditory deficits. Normal oropharynx. No Thrush. - Respiratory: Chest clear to auscultations bilaterally. No wheezing. No rhonchi. - Cardiovascular: Regular rate and rhythm. S1 / S2 , no S3 , no S4. - Gastrointestinal: Abdomen soft no tenderness. Bowel sounds positive in all four quadrants. No organomegaly. - Genitourinary: Deferred. - Neurologic: Cranial nerve II to XII intact. No focal neurological deficits. - Psychatric: Alert & oriented x 3. Matching mood & appropriate affect. Judgment and insight intact. - Lymphatic: No Lymphadenopathy. - Musculoskeletal: Cervical spine: Muscle bulk/ tone/ strength in the bilateral upper extremities normal. Facet loading test cervical area positive. Lumbar spine: Motor bulk/ tone/ strength lower extremities , thigh and legs : 5/5 Deep tendon reflexes : Normal Knee Jerk. Normal Ankle Jerk . Vertebral body tenderness to palpation over L4, L5 Lumbar Facet Loading Test positive Straight Leg Raise: positive at 30 degrees right side/ left side Gaenslen's Test positive Sacral spine : Severe tenderness over the Sacroiliac joint: right side / left side Range of motion: Flexion of the lumbar spine <60 degrees Range of motion: Extension of the lumbar spine <20 degrees Gaenslen's Test positive Manuela test: positive right side / left side Assessment and plan: Chronic low back pain secondary to lumbar degenerative disc disease , lumbar spondylosis with facet arthropathy without myelopathy Chronic and current use of high-risk medication (Opioids). The patient was counseled about risk of opioid use, psychological risk associated with opioids and was orally counseled to not overuse , divert or sell medications. Pt is to store medication in a safe location. The patient is counseled against driving while using narcotic medications and also not to use alcohol or any illicit recreational drugs. Patient verbalized understanding that the lack of compliance will result in failure to renew narcotic prescription(s) as well as possible discharge from the clinic Diagnoses, prognosis and treatment options including but not limited to physical therapy, surgical interventions, interventional therapies and medication management including narcotics and adjuvant medication were discu ssed. All patient questions answered MAPS reviewed and it was appropriate. UDS from 04/07/21 reviewed and consistent Prescription refill for [place] 10/325 #90 1 refill, Neurontin 300mg #90 1 refill, Senokot 8.6mg BID prn 1 refill, Flexeril 10mg QHS #30 1 refill. I have spent 31 minutes on patient care today. Dr Ramsey was available by phone for the evaluation of this patient. The time was used to review the medical records including relevant urine studies and Prescription history (MAPs), review of the available imaging, evaluation and examination of the patient, coordination of care with the medical staff and if applicable referring physicians, as well as creation of the medical record Objective - Vital Signs Vital signs: Intake & Output 07/27/21 07/28/21 07/28/21 18:59 06:59 18:59 Weight 113.398 kg PQRS Measure Charge Sheet PQRS Narrative: Smoking Status Current every day smoker Narcotic Agreement Date Signed 11/16/20 Hx Alcohol Use (MH) Yes: RARE Home Medications: Ambulatory Orders Aspirin 81 mg PO DAILY 04/02/15 Dextroamphetamine/Amphetamine [Adderall] 15 mg PO BID 07/24/15 Ergocalciferol [Vitamin D2] 50,000 unit PO [id number] 09/02/16 Metoprolol Tartrate [Lopressor] 50 mg PO BID 05/09/17 Rosuvastatin Calcium [Crestor] 40 mg PO DAILY 11/22/17 Omeprazole 20 mg PO DAILY PRN 09/08/20 Cyclobenzaprine [Flexeril] 5 mg PO HS 30 Days #30 tab 04/07/21 Gabapentin 300 mg PO TID 30 Days #90 cap 06/02/21 HYDROcodone/APAP 10-325MG [[place] 10-325] 1 tab PO Q12HR PRN 30 Days #60 tab 06/02/21 HYDROcodone/APAP 10-325MG [[place] 10-325] 1 tab PO Q12HR PRN 30 Days #60 tab 06/02/21 Sennosides [Senokot] 8.6 mg PO BID PRN #60 tab 06/02/21 Gabapentin [Neurontin] 300 mg PO TID 30 Days #90 cap 06/19/21 HYDROcodone/APAP 10-325MG [[place] 10-325] 1 tab PO Q8HR PRN 30 Days #60 tab 06/19/21 HYDROcodone/APAP 10-325MG [[place] 10-325] 1 tab PO Q8HR PRN 30 Days #60 tab 06/19/21 Sennosides [Senna] 8.6 mg PO BID 30 Days #60 tablet 06/19/21
[2021-07-28 09:32] VITALS: BP 134/93; PULSE 66; RESP 18; TEMP 98.6
== END ==
LOC: PNWHC3 07:40
PROVIDERS: ATTEND Specialist
DX: G89.29 Other chronic pain (principal); M51.36 Other intervertebral disc degeneration, lumbar region; M47.816 Spondylosis without myelopathy or radiculopathy, lumbar region; F17.200 Nicotine dependence, unspecified, uncomplicated; Z79.891 Long term (current) use of opiate analgesic
CPT/HCPCS: 99211

== ENCOUNTER → 2021-09-22 | Outpatient (CLI) | payer OTHER ==
[2021-09-22 07:50] VITALS: BP 133/87; PULSE 71; RESP 18; TEMP 98.2
--- NOTE | 2021-09-22 07:55 | P.PAINPG ---
Objective - Vital Signs Vital signs: Vital Signs Temp 98.2 F 09/22/21 07:48 Pulse 71 09/22/21 07:48 Resp 18 09/22/21 07:48 BP 133/87 09/22/21 07:48 Pulse Ox 95 09/22/21 07:48 FiO2 PQRS Measure Charge Sheet Mode of Arrival: Ambulatory Comment: A 65 yr old male with a history of severe and chronic low back pain secondary to lumbar degenerative disc diseases and lumbar spondylosis with facet arthropathy presents today for medication refills. Pain level is currently at 8 out of 10 in intensity, localized to the mid to lower aspects of the lumbar spine, burning/throbbing in character with radiation of pain down the lower extremities. Pain is provoked by "any type of movement". Pain is alleviated with medications, ice, heat with minimal relief, physical therapy in the past which provoked pain, home exercise regimen as tolerated, massage therapy integrated with PT without relief, repositioning and rest. Patient states he wakes up with stiffer lower back muscles and would like to know if he can adjust his Flexeril medication that he takes at bedtime. Patient is currently on [place] 10/325#60, Neurontin 300 mg #90, Senokot when necessary, Flexeril when necessary. Patient denies any side effects of the medication(s), denies excessive drowsiness or sleepiness, denies suicidal ideation and reports that the current pain medication is helping to control the pain and improve activities of daily living. Patient denies any motor or sensory deficits. Patient denies any fever or night sweats, denies any change in the bowel movements or urination. Physical Examination: -Constitutional: Cooperative. Not in acute distress . -HEENT: Neck is supple. No lymphadenopathy. No thyromegaly. Normal thyroid size. Eyes: No ptosis , no icterus, no photophobia. ENT: No auditory deficits. Normal oropharynx. No Thrush. - Respiratory: Chest clear to auscultations bilaterally. No wheezing. No rhonchi. - Cardiovascular: Regular rate and rhythm. S1 / S2 , no S3 , no S4. - Gastrointestinal: Abdomen soft no tenderness. Bowel sounds positive in all four quadrants. No organomegaly. - Genitourinary: Deferred. - Neurologic: Cranial nerve II to XII intact. No focal neurological deficits. - Psychatric: Alert & oriented x 3. Matching mood & appropriate affect. Judgment and insight intact. - Lymphatic: No Lymphadenopathy. - Musculoskeletal: Cervical spine: Muscle bulk/ tone/ strength in the bilateral upper extremities normal Vertebral body tenderness to palpation over Facet loading test positive Thoracic spine Muscle bulk / tone/ strength in the bilateral paraspinal muscles normal Vertebral body tender to palpation over Facet loading test positive Lumbar spine: Motor bulk/ tone/ strength lower extremities , thigh and legs : 5/5 Deep tendon reflexes : Normal Knee Jerk. Normal Ankle Jerk . Vertebral body tenderness to palpation over L4, L5 Lumbar Facet Loading Test positive Straight Leg Raise: positive at 30 degrees right side/ left side Gaenslen's Test positive Sacral spine : Severe tenderness over the Sacroiliac joint: right side / left side Range of motion: Flexion of the lumbar spine <60 degrees Range of motion: Extension of the lumbar spine <20 degrees Gaenslen's Test positive Nuno's Test positive Manuela test: positive right side / left side Thigh Thrust Test Sacral Thrust Test Assessment and plan: Chronic low back pain secondary to lumbar degenerative disc disease , lumbar spondylosis with facet arthropathy without myelopathy Chronic and current use of high-risk medication (Opioids). The patient was counseled about risk of opioid use, psychological risk associated with opioids and was orally counseled to not overuse , divert or sell medications. Pt is to store medication in a safe location. The patient is counseled against driving while using narcotic medications and also not to use alcohol or any illicit recreational drugs. Patient verbalized understanding that the lack of compliance will result in failure to renew narcotic prescription(s) as well as possible discharge from the clinic Diagnoses, prognosis and treatment options including but not limited to physical therapy, surgical interventions, interventional therapies and medication management including narcotics and adjuvant medication were discussed. All patient questions answered MAPS reviewed and it was appropriate. Urine for UDS collected today 09/22/21 Prescription refill for [place] 10/325#60, Neurontin 300 mg #90, Flexeril 10 mg #30, Senokot when necessary. All with 1 refill. I have spent 31 minutes on patient care today. Dr Ramsey was available by phone for the evaluation of this patient. The time was used to review the medical records including relevant urine studies and Prescription history (MAPs), review of the available imaging, evaluation and examination of the patient, coordination of care with the medical staff and if applicable referring physicians, as well as creation of the medical record - Pain Location Lower Back Non-Pharmacological Interventions: Heat, Home Exercise, Ice, Inactivity, Massage, Physical Therapy, Position/Reposition, Sitting, Stretching Pharmacological Interventions: Medication, PRN Medication PQRS Narrative: Smoking Status Current every day smoker Narcotic Agreement Date Signed 11/16/20 Blood Pressure 133/87 Pain Intensity [Lower Back] 8 Scale Used Numeric (1 - 10) Hx Alcohol Use (MH) Yes: RARE Home Medications: Ambulatory Orders Aspirin 81 mg PO DAILY 04/02/15 Dextroamphetamine/Amphetamine [Adderall] 15 mg PO BID 07/24/15 Ergocalciferol [Vitamin D2] 50,000 unit PO [id number] 09/02/16 Metoprolol Tartrate [Lopressor] 50 mg PO BID 05/09/17 Rosuvastatin Calcium [Crestor] 40 mg PO DAILY 11/22/17 Omeprazole 20 mg PO DAILY PRN 09/08/20 Gabapentin [Neurontin] 300 mg PO TID 30 Days #90 cap 06/19/21 HYDROcodone/APAP 10-325MG [[place] 10-325] 1 tab PO Q8HR PRN 30 Days #60 tab 06/19/21 HYDROcodone/APAP 10-325MG [[place] 10-325] 1 tab PO Q8HR PRN 30 Days #60 tab 06/19/21 Sennosides [Senna] 8.6 mg PO BID 30 Days #60 tablet 06/19/21 Cyclobenzaprine [Flexeril] 10 mg PO HS 30 Days #30 tab 09/22/21 Gabapentin 300 mg PO TID 30 Days #90 cap 09/22/21 HYDROcodone/APAP 10-325MG [[place] 10-325] 1 tab PO Q12HR PRN 30 Days #60 tab 09/22/21 HYDROcodone/APAP 10-325MG [[place] 10-325] 1 tab PO Q12HR PRN 30 Days #60 tab 09/22/21 Sennosides [Senokot] 8.6 mg PO BID PRN 30 Days #60 tab 09/22/21 Controlled Substance Measures - Controlled Substance Measures Is patient prescribed a controlled substance at discharge?: Yes When asked, does pt state using other controlled substances?: Yes If prescribed controlled substance>3 days was MAPS reviewed?: Yes If Rx opioid, was Start Talking consent form obtained?: Yes If opioid is for acute pain is fill amount 7 days or less?: Yes Was information provided regarding opioid addiction?: Yes
== END ==
LOC: PNWHC3 07:15
PROVIDERS: ATTEND Specialist
DX: M51.36 Other intervertebral disc degeneration, lumbar region (principal); M47.816 Spondylosis without myelopathy or radiculopathy, lumbar region; G89.29 Other chronic pain; Z79.891 Long term (current) use of opiate analgesic; F17.200 Nicotine dependence, unspecified, uncomplicated
CPT/HCPCS: 80307; G0482; G0463; 99212

== ENCOUNTER → 2021-11-17 | Outpatient (CLI) | payer OTHER ==
[2021-11-17 07:49] VITALS: BP 125/79; PULSE 62; RESP 18; TEMP 98.2
--- NOTE | 2021-11-17 15:23 | P.PAINPG ---
Objective - Vital Signs Vital signs: Vital Signs Temp 98.2 F 11/17/21 07:45 Pulse 62 11/17/21 07:45 Resp 18 11/17/21 07:45 BP 125/79 11/17/21 07:45 Pulse Ox 95 11/17/21 07:45 FiO2 Intake & Output 11/16/21 11/17/21 11/17/21 18:59 06:59 18:59 Weight 113.398 kg PQRS Measure Charge Sheet Mode of Arrival: Ambulatory Comment: A 65 yr old male with a history of severe and chronic low back pain second/holly to lumbar degenerative disc diseases and lumbar spondylosis with facet arthropathy presents today for medication refills. Pain level is currently at 8/10 in intensity, constant, achy in the R lower aspect of his lumbar spine w radiation of burning pain down the RLE. Pain is provoked by standing/walking for periods of 15 min or more. Pain is alleviated with medicatinos ([place], Neurontin, Flexeril), ice & heat which provide no relief, PT in the past, chiropractic treatments in the past, home exercise regimen, massage therapy, repositioning and rest. He only takes Flexeril as needed and doesn't need a refill at this time. Patient is currently on [place] 10/325mg #60, Neurontin 300mg #90, Flexeril prn Patient denies any side effects of the medication(s), denies excessive drowsiness or sleepiness, denies suicidal ideation and reports that the current pain medication is helping to control the pain and improve activities of daily living. Patient denies any motor or sensory deficits. Patient denies any fever or night sweats, denies any change in the bowel movements or urination. Physical Examination: -Constitutional: Cooperative. Not in acute distress . - Neurologic: Cranial nerve II to XII intact. No focal neurological deficits. - Psychatric: Alert & oriented x 3. Matching mood & appropriate affect. Judgment and insight intact. - Musculoskeletal: Cervical spine: Muscle bulk/ tone/ strength in the bilateral upper extremities normal Vertebral body tenderness to palpation over Spurling test positive Distraction test positive Facet loading test positive Thoracic spine Muscle bulk / tone/ strength in the bilateral paraspinal muscles normal Vertebral body tender to palpation over Facet loading test positive Lumbar spine: Motor bulk/ tone/ strength lower extremities , thigh and legs : 5/5 Deep tendon reflexes : Normal Knee Jerk. Normal Ankle Jerk . Vertebral body tenderness to palpation over L4, L5 Lumbar Facet Loading Test positive Straight Leg Raise: positive at 30 degrees right side/ left side Gaenslen's Test positive Sacral spine : Severe tenderness over the Sacroiliac joint: right side / left side Range of motion: Flexion of the lumbar spine <60 degrees Range of motion: Extension of the lumbar spine <20 degrees Gaenslen's Test positive Nuno's Test positive Manuela test: positive right side / left side Thigh Thrust Test Sacral Thrust Test Assessment and plan: Chronic low back pain secondary to lumbar degenerative disc disease , lumbar spondylosis with facet arthropathy without myelopathy Chronic and current use of high-risk medication (Opioids). The patient was counseled about risk of opioid use, psychological risk associated with opioids and was orally counseled to not overuse , divert or sell medications. Pt is to store medication in a safe location. The patient is counseled against driving while using narcotic medications and also not to use alcohol or any illicit recreational drugs. Patient verbalized understanding that the lack of compliance will result in failure to renew narcotic prescription(s) as well as possible discharge from the clinic Diagnoses, prognosis and treatment options including but not limited to physical therapy, surgical interventions, interventional therapies and medication management including narcotics and adjuvant medication were di scussed. All patient questions answered MAPS reviewed and it was appropriate. UDS from 09/22/21 reviewed and consistent New opiate agreements/ narcotic agreements signed today 11/17/21 Prescription refill for [place] 10/325mg #60, Neurontin 300mg #90 w 1 refill I have spent less than 30 minutes on patient care today. Dr Ramsey was available by phone for the evaluation of this patient. The time was used to review the medical records including relevant urine studies and Prescription history (MAPs), review of the available imaging, evaluation and examination of the patient, coordination of care with the medical staff and if applicable referring physicians, as well as creation of the medical record - Pain Location Lower Back Non-Pharmacological Interventions: Heat, Home Exercise, Ice, Inactivity, Massage, Physical Therapy, Position/Reposition, Stretching Pharmacological Interventions: Block, Epidural, PRN Medication, Scheduled Medication PQRS Narrative: Smoking Status Current every day smoker Narcotic Agreement Date Signed 11/17/21 Blood Pressure 125/79 Pain Intensity [Lower Back] 8 Scale Used Numeric (1 - 10) Hx Alcohol Use (MH) Yes: RARE Home Medications: Ambulatory Orders Aspirin 81 mg PO DAILY 04/02/15 Dextroamphetamine/Amphetamine [Adderall] 15 mg PO BID 07/24/15 Ergocalciferol [Vitamin D2] 50,000 unit PO [id number] 09/02/16 Metoprolol Tartrate [Lopressor] 50 mg PO BID 05/09/17 Rosuvastatin Calcium [Crestor] 40 mg PO DAILY 11/22/17 Omeprazole 20 mg PO DAILY PRN 09/08/20 Cyclobenzaprine [Flexeril] 10 mg PO HS 30 Days #30 tab 09/22/21 Sennosides [Senna] 8.6 mg PO HS 09/29/21 Albuterol Inhaler [Ventolin Hfa Inhaler] 2 puff INHALATION RT-QID 11/17/21 Gabapentin [Neurontin] 300 mg PO TID 30 Days #90 cap 11/17/21 HYDROcodone/APAP 10-325MG [[place] 10-325] 1 tab PO Q12HR PRN 30 Days #60 tab 11/17/21 HYDROcodone/APAP 10-325MG [[place] 10-325] 1 tab PO Q12HR PRN 30 Days #60 tab 11/08 OLANZapine/FLUOXETINE HCL [Symbyax 12-50 mg Capsule] 12 mg PO DAILY 11/17/21 Controlled Substance Measures - Controlled Substance Measures Is patient prescribed a controlled substance at discharge?: Yes When asked, does pt state using other controlled substances?: Yes If prescribed controlled substance>3 days was MAPS reviewed?: Yes If Rx opioid, was Start Talking consent form obtained?: Yes Was information provided regarding opioid addiction?: Yes
== END ==
LOC: PNWHC3 07:16
PROVIDERS: ATTEND Specialist
DX: G89.29 Other chronic pain (principal); M51.36 Other intervertebral disc degeneration, lumbar region; M47.816 Spondylosis without myelopathy or radiculopathy, lumbar region; F17.200 Nicotine dependence, unspecified, uncomplicated; Z79.891 Long term (current) use of opiate analgesic
CPT/HCPCS: 99211

== ENCOUNTER → 2022-01-12 | Outpatient (CLI) | payer OTHER ==
[2022-01-12 08:05] VITALS: BP 121/89; PULSE 63; RESP 18; TEMP 98.4
--- NOTE | 2022-01-12 14:08 | P.PAINPG ---
PQRS Measure Charge Sheet Comment: A 66 yr old male with a history of severe and chronic low back pain secondary to lumbar degenerative disc diseases and lumbar spondylosis with facet arthropathy without myelopathy presents today for medication refills. Pain level is currently at 7/10 in intensity, constant, localized in the mid to lower thiago mbar spine, sore/sharp/throbbing w shooting towards BL hips and BLES (L>R). Pain is provoked by standing and walking for periods of 20 min or more. Pain is alleviated with medications, injections in the past, alternating heat and ice, physical therapy 2-3 years ago but cannot return to PT due to intractable pain, daily home stretching regimen as tolerated, repositioning and rest. Interventional pain procedures completed include LESIs, BL RFAs L3-L5 Patient is currently on [place], Neurontin, Flexeril Patient denies any side effects of the medication(s), denies excessive drowsiness or sleepiness, denies suicidal ideation and reports that the current pain medication is helping to control the pain and improve activities of daily living. Patient denies any motor or sensory deficits. Patient denies any fever or night sweats, denies any change in the bowel movements or urination. Physical Examination: -Constitutional: Cooperative. Not in acute distress . - Neurologic: Cranial nerve II to XII intact. No focal neurological deficits. - Psychatric: Alert & oriented x 3. Matching mood & appropriate affect. Judgment and insight intact. - Musculoskeletal: Cervical spine: Muscle bulk/ tone/ strength in the bilateral upper extremities normal Vertebral body tenderness to palpation over Spurling test positive Distraction test positive Facet loading test positive Thoracic spine Muscle bulk / tone/ strength in the bilateral paraspinal muscles normal Vertebral body tender to palpation over Facet loading test positive Lumbar spine: Motor bulk/ tone/ strength lower extremities , thigh and legs : 5/5 Deep tendon reflexes : Normal Knee Jerk. Normal Ankle Jerk . Vertebral body tenderness to palpation over L3, L4, L5 Lumbar Facet Loading Test positive Straight Leg Raise: positive at 30 degrees right side/ left side Gaenslen's Test positive Sacral spine : Severe tenderness over the Sacroiliac joint: right side / left side Range of motion: Flexion of the lumbar spine <60 degrees Range of motion: Extension of the lumbar spine <20 degrees Gaenslen's Test positive Nuno's Test positive Mnauela test: positive right side / left side Thigh Thrust Test Sacral Thrust Test Assessment and plan: Chronic low back pain secondary to lumbar degenerative disc disease , lumbar spondylosis with facet arthropathy without myelopathy Chronic and current use of high-risk medication (Opioids). The patient was counseled about risk of opioid use, psychological risk associated with opioids and was orally counseled to not overuse , divert or sell medications. Pt is to store medication in a safe location. The patient is counseled against driving while using narcotic medications and also not to use alcohol or any illicit recreational drugs. Patient verbalized understanding that the lack of compliance will result in failure to renew narcotic prescription(s) as well as possible discharge from the clinic Diagnoses, prognosis and treatment options including but not limited to physical therapy, surgical interventions, interventional therapies and medication management including narcotics and adjuvant medication were disc ussed. All patient questions answered MAPS reviewed and it was appropriate. UDS from 09/22/21 reviewed and consistent. Prescription refill for [place] 10/325 #60, Neurontin #90, Flexeril 10mg #30 w 1 RF I have spent less than 30 minutes on patient care today. Dr Ramsey was available by phone for the evaluation of this patient. The time was used to review the medical records including relevant urine studies and Prescription history (MAPs), review of the available imaging, evaluation and examination of the patient, coordination of care with the medical staff and if applicable referring physicians, as well as creation of the medical record PQRS Narrative: Smoking Status Current every day smoker Narcotic Agreement Date Signed 11/17/21 Pain Intensity [Lower Back] 8 Scale Used Numeric (1 - 10) Hx Alcohol Use (MH) No Home Medications: Ambulatory Orders Aspirin 81 mg PO DAILY 04/02/15 Dextroamphetamine/Amphetamine [Adderall] 15 mg PO BID 07/24/15 Ergocalciferol [Vitamin D2] 50,000 unit PO [id number] 09/02/16 Metoprolol Tartrate [Lopressor] 50 mg PO BID 05/09/17 Rosuvastatin Calcium [Crestor] 40 mg PO DAILY 11/22/17 Omeprazole 20 mg PO DAILY PRN 09/08/20 Sennosides [Senna] 8.6 mg PO HS 09/29/21 Albuterol Inhaler [Ventolin Hfa Inhaler] 1 - 2 puff INHALATION QID PRN 01/10/22 Budesonide-Formot 160-4.5 Mcg [Symbicort 160-4.5 Mcg Inhaler] 1 puff INHALATION BID 01/10/22 Cyclobenzaprine [Flexeril] 10 mg PO HS PRN 30 Days #30 tab 01/12/22 Gabapentin [Neurontin] 300 mg PO TID 30 Days #90 cap 01/12/22 HYDROcodone/APAP 10-325MG [[place] 10-325] 1 tab PO Q12HR PRN 30 Days #60 tab 01/12/22 HYDROcodone/APAP 10-325MG [[place] 10-325] 1 tab PO Q12HR PRN 30 Days #60 tab 01/12/22 Controlled Substance Measures - Controlled Substance Measures Is patient prescribed a controlled substance at discharge?: No
== END ==
LOC: PNWHC3 07:12
PROVIDERS: ATTEND Specialist
DX: M51.36 Other intervertebral disc degeneration, lumbar region (principal); M47.816 Spondylosis without myelopathy or radiculopathy, lumbar region; G89.29 Other chronic pain; F17.200 Nicotine dependence, unspecified, uncomplicated
CPT/HCPCS: 99211

== ENCOUNTER → 2022-03-09 | Outpatient (CLI) | payer OTHER ==
[2022-03-09 07:48] VITALS: BP 119/85; PULSE 71; RESP 16
--- NOTE | 2022-03-09 14:40 | P.PAINPG ---
PQRS Measure Charge Sheet Comment: A 66 yr old male with a history of severe and chronic low back pain secondary to lumbar DDD and spondylosis with facet arthropathy without myelopathy presents today for medication refills. Pain level is currently at 8/10 in intensity, constant, localzied in the lower lubmar spine, dull/ achy in charcter w shooting towards BLEs, R>L. Pain is provoked by weight bearing activities. Pain is alleviated with alternating heat & ice, medications, home exercise regimen daily, repositioning and rest. Patient is currently on [place] 10/325mg #60, Neurontin #90, Flexeril 10mg Patient denies any side effects of the medication(s), denies excessive drowsiness or sleepiness, denies suicidal ideation and reports that the current pain medication is helping to control the pain and improve activities of daily living. Patient denies any motor or sensory deficits. Patient denies any fever or night sweats, denies any change in the bowel movements or urination. Physical Examination: -Constitutional: Cooperative. Not in acute distress . - Neurologic: Cranial nerve II to XII intact. No focal neurological deficits. - Psychatric: Alert & oriented x 3. Matching mood & appropriate affect. Judgment and insight intact. - Musculoskeletal: Cervical spine: Muscle bulk/ tone/ strength in the bilateral upper extremities normal Vertebral body tenderness to palpation over Spurling test positive Distraction test positive Facet loading test positive Thoracic spine Muscle bulk / tone/ strength in the bilateral paraspinal muscles normal Vertebral body tender to palpation over Facet loading test positive Lumbar spine: Motor bulk/ tone/ strength lower extremities , thigh and legs : 5/5 Deep tendon reflexes : Normal Knee Jerk. Normal Ankle Jerk . Vertebral body tenderness to palpation over L3, L4, L5 Lumbar Facet Loading Test positive Straight Leg Raise: positive at 30 degrees right side/ left side Gaenslen's Test positive Sacral spine : Severe tenderness over the Sacroiliac joint: right side / left side Range of motion: Flexion of the lumbar spine <60 degrees Range of motion: Extension of the lumbar spine <20 degrees Gaenslen's Test positive Manuela test: positive right side / left side Thigh Thrust Test Sacral Thrust Test Assessment and plan: Chronic low back pain secondary to lumbar degenerative disc disease, spondylosis with facet arthropathy without myelopathy Chronic and current use of high-risk medication (Opioids). The patient was counseled about risk of opioid use, psychological risk associated with opioids and was orally counseled to not overuse , divert or sell medications. Pt is to store medication in a safe location. The patient is counseled against driving while using narcotic medications and also not to use alcohol or any illicit recreational drugs. Patient verbalized understanding that the lack of compliance will result in failure to renew narcotic prescription(s) as well as possible discharge from the clinic Diagnoses, prognosis and treatment options including but not limited to physical therapy, surgical interventions, interventional therapies and medication management including narcotics and adjuvant medication were discussed. All patient questions answered MAPS reviewed and it was appropriate. UDS from September 2021 reviewed and consistent. Repeat UDS today 03/09/22 Prescription refill for [place] 10/325mg #60, Neurontin #90, Flexeril 10mg w 1 RF I have spent less than 30 minutes on patient care today. Dr Ramsey was available by phone for the evaluation of this patient. The time was used to review the medical records including relevant urine studies and Prescription history (MAPs), review of the available imaging, evaluation and examination of the patient, coordination of care with the medical staff and if applicable referring physicians, as well as creation of the medical record PQRS Narrative: Smoking Status Current every day smoker Narcotic Agreement Date Signed 11/17/21 Hx Alcohol Use (MH) No Home Medications: Ambulatory Orders Aspirin 81 mg PO DAILY 04/02/15 Dextroamphetamine/Amphetamine [Adderall] 15 mg PO BID 07/24/15 Ergocalciferol [Vitamin D2] 50,000 unit PO [id number] 09/02/16 Metoprolol Tartrate [Lopressor] 50 mg PO BID 05/09/17 Rosuvastatin Calcium [Crestor] 40 mg PO DAILY 11/22/17 Omeprazole 20 mg PO DAILY PRN 09/08/20 Sennosides [Senna] 8.6 mg PO HS 09/29/21 Albuterol Inhaler [Ventolin Hfa Inhaler] 1 - 2 puff INHALATION QID PRN 01/10/22 Budesonide-Formot 160-4.5 Mcg [Symbicort 160-4.5 Mcg Inhaler] 1 puff INHALATION BID 01/10/22 Cyclobenzaprine [Flexeril] 10 mg PO HS PRN 30 Days #30 tab 10/05/22 Gabapentin [Neurontin] 300 mg PO TID 30 Days #90 cap 01/12/22 HYDROcodone/APAP 10-325MG [[place] 10-325] 1 tab PO Q12HR PRN 30 Days #60 tab 01/12/22 HYDROcodone/APAP 10-325MG [[place] 10-325] 1 tab PO Q12HR PRN 30 Days #60 tab 01/12/22 Controlled Substance Measures - Controlled Substance Measures Is patient prescribed a controlled substance at discharge?: Yes When asked, does pt state using other controlled substances?: Yes If prescribed controlled substance>3 days was MAPS reviewed?: Yes If Rx opioid, was Start Talking consent form obtained?: Yes Was information provided regarding opioid addiction?: Yes
== END ==
LOC: PNWHC3 07:22
PROVIDERS: ATTEND Specialist
DX: M47.816 Spondylosis without myelopathy or radiculopathy, lumbar region (principal); M51.36 Other intervertebral disc degeneration, lumbar region; G89.29 Other chronic pain; Z79.891 Long term (current) use of opiate analgesic; F17.200 Nicotine dependence, unspecified, uncomplicated
CPT/HCPCS: 80307; G0482; G0463; 99212

== ENCOUNTER 2022-03-31 11:13 | Emergency (ER) | payer OTHER ==
[2022-03-31 11:46] VITALS: BP 161/72; PULSE 95; RESP 18; TEMP 97.4
--- NOTE | 2022-03-31 13:01 | ED ---
Eye Problem HPI - General Chief complaint: Eye Problems Stated complaint: eye problems Time Seen by Provider: 03/31/22 12:42 Source: patient, RN notes reviewed, old records reviewed Mode of arrival: ambulatory Limitations: no limitations - History of Present Illness Initial comments: 56-year-old well-appearing male presents ambulatory with complaints of bilateral eye itching and burning for the past 3 days. Patient states he woke with the symptoms. Sometimes they're both crusty in the morning. Usually he can put water on them and it feels better however he states now he wants to "dig his eyes out" related to the itching at this time. Denies any other symptoms. No fevers. Not around any UV lights or chemicals. No concern for foreign body. MD chief complaint: eye pain (irritation itching) -: days(s) (3) Onset Description: awoke with symptoms Location: both eyes Place: home If Injury: none Eye Symptoms: burning, itching Severity scale (1-10): 6 If Pain, Quality: burning Consistency: constant Associated Symptoms: none Treatments Prior to Arrival: OTC eye drops - Related Data Home Medications Medication Instructions Recorded Confirmed Aspirin 81 mg PO DAILY 04/02/15 03/09/22 Dextroamphetamine/Amphetamine 15 mg PO BID 07/24/15 03/09/22 [Adderall] Ergocalciferol [Vitamin D2] 50,000 unit PO [id number] 09/02/16 03/09/22 Metoprolol Tartrate [Lopressor] 50 mg PO BID 05/09/17 03/09/22 Rosuvastatin Calcium [Crestor] 40 mg PO DAILY 11/22/17 03/09/22 Omeprazole 20 mg PO DAILY PRN 09/08/20 03/09/22 Sennosides [Senna] 8.6 mg PO HS 09/29/21 03/09/22 Albuterol Inhaler [Ventolin Hfa 1 - 2 puff INHALATION QID PRN 01/10/22 03/09/22 Inhaler] Budesonide-Formot 160-4.5 Mcg 1 puff INHALATION BID 01/10/22 03/09/22 [Symbicort 160-4.5 Mcg Inhaler] Previous Rx's Medication Instructions Recorded Cyclobenzaprine [Flexeril] 10 mg PO HS PRN 30 Days #30 tab 03/09/22 Gabapentin [Neurontin] 300 mg PO TID 30 Days #90 cap 03/09/22 HYDROcodone/APAP 10-325MG [[place] 1 tab PO Q12HR PRN 30 Days #60 tab 03/09/22 10-325] HYDROcodone/APAP 10-325MG [[place] 1 tab PO Q12HR PRN 30 Days #60 tab 03/09/22 10-325] Polymyxin B-Trimeth Sulf Ophth 1 drops BOTH EYES Q3H 7 Days #10 ml 03/31/22 [Polytrim Opthalmic] Allergies Allergy/AdvReac Type Severity Reaction Status Date / Time No Known Allergies Allergy Verified 03/31/22 11:46 Review of Systems ROS Statement: Those systems with pertinent positive or pertinent negative responses have been documented in the HPI. ROS Other: All systems not noted in ROS Statement are negative. Past Medical History Past Medical History: GERD/Reflux, Hyperlipidemia, Hypertension, Musculoskeletal Disorder, Osteoarthritis (OA), Pneumonia Additional Past Medical History / Comment(s): Hx of pneumonia (X10), [place] and Malaria. DDD/Chronic back pain, NT BLE, especially right side. History of Any Multi-Drug Resistant Organisms: None Reported Past Surgical History: No Surgical Hx Reported Additional Past Surgical History / Comment(s): MULTIPLE PAIN CLINIC PROCEDURES, EXCISION OF WISDOM TEETH. Past Anesthesia/Blood Transfusion Reactions: No Reported Reaction Past Psychological History: ADD/ADHD Smoking Status: Current every day smoker - Past Family History Father Family Medical History: Cancer General Exam Limitations: no limitations General appearance: alert, in no apparent distress Head exam: Present: atraumatic Eye exam: Present: normal appearance, PERRL, EOMI. Absent: scleral icterus, conjunctival injection, nystagmus, periorbital swelling, periorbital tenderness Neck exam: Present: full ROM. Absent: tenderness, meningismus Respiratory exam: Present: normal lung sounds bilaterally. Absent: respiratory distress Cardiovascular Exam: Present: regular rate Neurological exam: Present: alert, oriented X3, normal gait Psychiatric exam: Present: normal affect, normal mood Skin exam: Present: warm, dry, normal color. Absent: cyanosis, diaphoretic, petechiae, pallor Course Vital Signs 03/31/22 11:42 Temperature 97.4 F L Pulse Rate 95 Respiratory 18 Rate Blood Pressure 161/72 O2 Sat by Pulse 96 Oximetry Medical Decision Making - Medical Decision Making Patient presents with bilateral eye itching. Crusty drainage bilaterally in the morning for the past 3 days. No evidence of tearing, normally wears glasses but did not bring them today. No visual changes. Patient states he was able to drive himself to the hospital. Patient was given antibiotics eyedrops to treat for conjunctivitis. We did discuss that this is likely viral. He was given referral to ophthalmology if this continues. He was also directed to take a daily ALLERGY medication for itching. Case discussed with Dr. Baird Disposition Clinical Impression: Conjunctivitis Disposition: HOME SELF-CARE Condition: Good Instructions (If sedation given, give patient instructions): Conjunctivitis (ED) Additional Instructions: Use antibiotic drops as prescribed. Wash your hands frequently. Follow-up with the primary care and/or news reporter next week. Return to the emergency room with any new or concerning symptoms. Prescriptions: Polymyxin B-Trimeth Sulf Ophth [Polytrim Opthalmic] 1 drops BOTH EYES Q3H 7 Days #10 ml Is patient prescribed a controlled substance at d/c from ED?: No Referrals: Alvaro Clinton MD [Primary Care Provider] - 1-2 days Jovanny Stinson MD [STAFF PHYSICIAN] - 1-2 days Time of Disposition: 13:08
== END 2022-03-31 13:17 | disposition home or self-care (01) ==
LOC: EC 11:13
DX: H10.9 Unspecified conjunctivitis (principal); I10 Essential (primary) hypertension; K21.9 Gastro-esophageal reflux disease without esophagitis; E78.5 Hyperlipidemia, unspecified; M19.90 Unspecified osteoarthritis, unspecified site; F90.9 Attention-deficit hyperactivity disorder, unspecified type; F17.200 Nicotine dependence, unspecified, uncomplicated; Z79.82 Long term (current) use of aspirin; Z79.899 Other long term (current) drug therapy
CPT/HCPCS: 99282

== ENCOUNTER → 2022-05-04 | Outpatient (CLI) | payer OTHER ==
[2022-05-04 07:37] VITALS: BP 142/85; PULSE 68; RESP 18; TEMP 98.2
--- NOTE | 2022-05-04 14:12 | P.PAINPG ---
Objective - Vital Signs Vital signs: Vital Signs Temp 98.2 F 05/04/22 07:34 Pulse 68 05/04/22 07:34 Resp 18 05/04/22 07:34 BP 142/85 05/04/22 07:34 Pulse Ox 95 05/04/22 07:34 FiO2 Intake & Output 05/03/22 05/04/22 05/04/22 18:59 06:59 18:59 Weight 113.398 kg PQRS Measure Charge Sheet Mode of Arrival: Ambulatory Comment: A 66 yr old male with a history of severe and chronic low back pain secondary to lumbar DDD and spondylosis with facet arthropathy without myelopathy presents today for medication refills. Pain level is provoked at 8 /10 in intensity, constant, localized in the lumbar spine, throbbing in character w shooting towards the BLEs. Pain is provoked by twisting, bending, laying supine/walking/standing for periods of 20 min or more. Pain is alleviated with medications, repositioning and rest. Patient is currently on [place], Neurontin, Flexeril, Senokot Patient denies any side effects of the medication(s), denies excessive drowsiness or sleepiness, denies suicidal ideation and reports that the current pain medication is helping to control the pain and improve activities of daily living. Patient denies any motor or sensory deficits. Patient denies any fever or night sweats, denies any change in the bowel movements or urination. Physical Examination: -Constitutional: Cooperative. Not in acute distress . - Neurologic: Cranial nerve II to XII intact. No focal neurological de ficits. - Psychatric: Alert & oriented x 3. Matching mood & appropriate affect. Judgment and insight intact. - Musculoskeletal: Cervical spine: Muscle bulk/ tone/ strength in the bilateral upper extremities normal Vertebral body tenderness to palpation over Spurling test positive Distraction test positive Facet loading test positive Thoracic spine Muscle bulk / tone/ strength in the bilateral paraspinal muscles normal Vertebral body tender to palpation over Facet loading test positive Lumbar spine: Motor bulk/ tone/ strength lower extremities , thigh and legs : 5/5 Deep tendon reflexes : Normal Knee Jerk. Normal Ankle Jerk . Vertebral body tenderness to palpation over L4, L5 Lumbar Facet Loading Test positive Straight Leg Raise: positive at 30 degrees right side/ left side Gaenslen's Test positive Sacral spine : Severe tenderness over the Sacroiliac joint: right side / left side Range of motion: Flexion of the lumbar spine <60 degrees Range of motion: Extension of the lumbar spine <20 degrees Gaenslen's Test positive Manuela test: positive right side / left side Thigh Thrust Test Sacral Thrust Test Assessment and plan: Chronic low back pain secondary to lumbar degenerative disc disease, spondylosis with facet arthropathy without myelopathy Chronic and current use of high-risk medication (Opioids). The patient was counseled about risk of opioid use, psychological risk associated with opioids and was orally counseled to not overuse , divert or sell medications. Pt is to store medication in a safe location. The patient is counseled against driving while using narcotic medications and also not to use alcohol or any illicit recreational drugs. Patient verbalized understanding that the lack of compliance will result in failure to renew narcotic prescription(s) as well as possible discharge from the clinic Diagnoses, prognosis and treatment options including but not limited to physical therapy, surgical interventions, interventional therapies and medication management including narcotics and adjuvant medication were discussed. All patient questions answered MAPS reviewed and it was appropriate. UDS from 03/09/22 reviewed and consistent. Prescription refill for [place] 10/325mg #60, Neurontin 300mg #90 and Senokot 8.6mg #30 w 1 RF. Pt states he has 1 1/2 mo of Flexeril at home. I have spent less than 30 minutes on patient care today. Dr Ramsey was available by phone for the evaluation of this patient. The time was used to review the medical records including relevant urine studies and Prescription history (MAPs), review of the available imaging, evaluation and examination of the patient, coordination of care with the medical staff and if applicable referring physicians, as well as creation of the medical record - Pain Location Lower Back Non-Pharmacological Interventions: Inactivity, Position/Reposition, Stretching Pharmacological Interventions: PRN Medication, Scheduled Medication PQRS Narrative: Smoking Status Current every day smoker Narcotic Agreement Date Signed 11/17/21 Blood Pressure 142/85 Pain Intensity [Lower Back] 8 Scale Used Numeric (1 - 10) Hx Alcohol Use (MH) No Home Medications: Ambulatory Orders Aspirin 81 mg PO DAILY 04/02/15 Dextroamphetamine/Amphetamine [Adderall] 15 mg PO BID 07/24/15 Ergocalciferol [Vitamin D2] 50,000 unit PO [id number] 09/02/16 Metoprolol Tartrate [Lopressor] 50 mg PO BID 05/09/17 Rosuvastatin Calcium [Crestor] 40 mg PO DAILY 11/22/17 Omeprazole 20 mg PO DAILY PRN 09/08/20 Sennosides [Senna] 8.6 mg PO HS 09/29/21 Albuterol Inhaler [Ventolin Hfa Inhaler] 1 - 2 puff INHALATION QID PRN 01/10/22 Budesonide-Formot 160-4.5 Mcg [Symbicort 160-4.5 Mcg Inhaler] 1 puff INHALATION BID 01/10/22 Cyclobenzaprine [Flexeril] 10 mg PO HS PRN 30 Days #30 tab 03/09/22 Polymyxin B-Trimeth Sulf Ophth [Polytrim Opthalmic] 1 drops BOTH EYES Q3H 7 Days #10 ml 03/31/22 Gabapentin [Neurontin] 300 mg PO TID 30 Days #90 cap 05/04/22 HYDROcodone/APAP 10-325MG [[place] 10-325] 1 tab PO Q12HR PRN 30 Days #60 tab 05/04/22 HYDROcodone/APAP 10-325MG [[place] 10-325] 1 tab PO Q12HR PRN 30 Days #60 tab 05/04/22 Sennosides [Senokot] 8.6 mg PO ONCE PRN 30 Days #30 tablet 05/04/22 Controlled Substance Measures - Controlled Substance Measures Is patient prescribed a controlled substance at discharge?: Yes When asked, does pt state using other controlled substances?: Yes If prescribed controlled substance>3 days was MAPS reviewed?: Yes If Rx opioid, was Start Talking consent form obtained?: Yes If opioid is for acute pain is fill amount 7 days or less?: No Was information provided regarding opioid addiction?: Yes
== END ==
LOC: PNWHC3 07:06
PROVIDERS: ATTEND Specialist
DX: M47.816 Spondylosis without myelopathy or radiculopathy, lumbar region (principal); M51.36 Other intervertebral disc degeneration, lumbar region; G89.29 Other chronic pain; Z79.891 Long term (current) use of opiate analgesic; F17.200 Nicotine dependence, unspecified, uncomplicated; Z79.82 Long term (current) use of aspirin
CPT/HCPCS: 99211

== ENCOUNTER → 2022-06-29 | Outpatient (CLI) | payer OTHER ==
[2022-06-29 07:56] VITALS: BP 120/56; PULSE 67; RESP 18; TEMP 98.3
--- NOTE | 2022-06-29 14:25 | P.PAINPG ---
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 Pain level is provoked at 8 /10 in intensity, constant, localized in the lumbar spine, shocking in character w shooting towards the BLEs and feet. Pain is provoked by standing/ walking for periods of > 5 min. Pain is alleviated with heat, ice, medications, topicals, PT 3-4 yrs ago, home exercise regimen, repositioning and rest. Interventional pain procedures completed include BL RFA L3-L5 (2020) Patient is currently on [place], Flexeril, Neurontin Patient denies any side effects of the medication(s), denies excessive drowsiness or sleepiness, denies suicidal ideation and reports that the current pain medication is helping to control the pain and improve activities of daily living. Patient denies any motor or sensory deficits. Patient denies any fever or night sweats, denies any change in the bowel movements or urination. Physical Examination: -Constitutional: Cooperative. Not in acute distress . - Neurologic: Cranial nerve II to XII intact. No focal neurological deficits. - Psychatric: Alert & oriented x 3. Matching mood & appropriate affect. Judgment and insight intact. - Musculoskeletal: Cervical spine: Muscle bulk/ tone/ strength in the bilateral upper extremities normal Vertebral body tenderness to palpation over Spurling test positive Distraction test positive Facet loading test positive TTP Thoracic spine Muscle bulk / tone/ strength in the bilateral paraspinal muscles normal Vertebral body tender to palpation over Facet loading test positive TTP Lumbar spine: Motor bulk/ tone/ strength lower extremities , thigh and legs : 5/5 Deep tendon reflexes : Normal Knee Jerk. Normal Ankle Jerk . Vertebral body tenderness to palpation over L3, L4, L5 Lumbar Facet Loading Test positive Straight Leg Raise: positive at 30 degrees right side/ left side Gaenslen's Test positive Sacral spine : Severe tenderness over the Sacroiliac joint: right side / left side Range of motion: Flexion of the lumbar spine <60 degrees Range of motion: Extension of the lumbar spine <20 degrees Gaenslen's Test positive right side / left side Manuela test: positive right side / left side Thigh Thrust Test positive right side / left side Sacral Thrust Test positive right side / left side Assessment and plan: Chronic LBP secondary to lumbar DDD, spondylosis with facet arthropathy without myelopathy Chronic and current use of high-risk medication (Opioids). The patient was counseled about risk of opioid use, psychological risk associated with opioids and was orally counseled to not overuse , divert or sell medications. Pt is to store medication in a safe location. The patient is counseled against driving while using narcotic medications and also not to use alcohol or any illicit recreational drugs. Patient verbalized understanding that the lack of compliance will result in failure to renew narcotic prescription(s) as well as possible discharge from the clinic Diagnoses, prognosis and treatment options including but not limited to physical therapy, surgical interventions, interventional therapies and medication management including narcotics and adjuvant medication were discussed. All patient questions answered MAPS reviewed and it was appropriate. UDS from 03/09/22 reviewed and consistent. Prescription refill for [place] 10/325mg #60, Flexeril, [place] w 1 RF I have spent less than 30 minutes on patient care today. Dr Ramsey was available by phone for the evaluation of this patient. The time was used to review the medical records including relevant urine studies and Prescription history (MAPs), review of the available imaging, evaluation and examination of t he patient, coordination of care with the medical staff and if applicable referring physicians, as well as creation of the medical record PQRS Narrative: Smoking Status Current every day smoker Narcotic Agreement Date Signed 11/17/21 Hx Alcohol Use (MH) No Home Medications: Ambulatory Orders Aspirin 81 mg PO DAILY 04/02/15 Dextroamphetamine/Amphetamine [Adderall] 15 mg PO BID 07/24/15 Ergocalciferol [Vitamin D2] 50,000 unit PO [id number] 09/02/16 Metoprolol Tartrate [Lopressor] 50 mg PO BID 05/09/17 Rosuvastatin Calcium [Crestor] 40 mg PO DAILY 11/22/17 Omeprazole 20 mg PO DAILY PRN 09/08/20 Sennosides [Senna] 8.6 mg PO HS 09/29/21 Albuterol Inhaler [Ventolin Hfa Inhaler] 1 - 2 puff INHALATION QID PRN 01/10/22 Budesonide-Formot 160-4.5 Mcg [Symbicort 160-4.5 Mcg Inhaler] 1 puff INHALATION BID 01/10/22 Polymyxin B-Trimeth Sulf Ophth [Polytrim Opthalmic] 1 drops BOTH EYES Q3H 7 Days #10 ml 03/31/22 Gabapentin [Neurontin] 300 mg PO TID 30 Days #90 cap 05/04/22 Cyclobenzaprine [Flexeril] 10 mg PO HS PRN 30 Days #30 tab 06/29/22 HYDROcodone/APAP 10-325MG [[place] 10-325] 1 tab PO Q12HR PRN 30 Days #60 tab 06/29/22 HYDROcodone/APAP 10-325MG [[place] 10-325] 1 tab PO Q12HR PRN 30 Days #60 tab Sennosides [Senokot] 8.6 mg PO ONCE PRN 30 Days #30 tablet 06/29/22 Controlled Substance Measures - Controlled Substance Measures Is patient prescribed a controlled substance at discharge?: Yes
== END ==
LOC: PNWHC3 07:21
PROVIDERS: ATTEND Specialist
DX: M51.36 Other intervertebral disc degeneration, lumbar region (principal); M47.816 Spondylosis without myelopathy or radiculopathy, lumbar region; G89.29 Other chronic pain; F17.210 Nicotine dependence, cigarettes, uncomplicated; Z79.891 Long term (current) use of opiate analgesic
CPT/HCPCS: 99211

== ENCOUNTER → 2022-08-24 | Outpatient (CLI) | payer OTHER ==
[2022-08-24 09:10] VITALS: BP 128/86; PULSE 59; RESP 18; TEMP 98.6
--- NOTE | 2022-08-24 15:00 | P.PAINPG ---
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 Pain level is provoked at 8 /10 in intensity, constant, localized in the lumbar spine, burning in character w shooting towards the BLEs and feet, R>L. Pain is provoked by standing/ walking for periods of > 5 min. Pain is alleviated with heat, ice, medications, topicals, PT 5 yrs ago, home exercise regimen, repositioning and rest. Interventional pain procedures completed include BL RFA L3-L5 (2020) Patient is currently on [place], Flexeril, Neurontin Patient denies any side effects of the medication(s), denies excessive drowsiness or sleepiness, denies suicidal ideation and reports that the current pain medication is helping to control the pain and improve activities of daily living. Patient denies any motor or sensory deficits. Patient denies any fever or night sweats, denies any change in the bowel movements or urination. Physical Examination: -Constitutional: Cooperative. Not in acute distress . - Neurologic: Cranial nerve II to XII intact. No focal neurological deficits. - Psychatric: Alert & oriented x 3. Matching mood & appropriate affect. Judgment and insight intact. - Musculoskeletal: Cervical spine: Muscle bulk/ tone/ strength in the bilateral upper extremities normal Vertebral body tenderness to palpation over Spurling test positive Distraction test positive Facet loading test positive TTP Thoracic spine Muscle bulk / tone/ strength in the bilateral paraspinal muscles normal Vertebral body tender to palpation over Facet loading test positive TTP Lumbar spine: Motor bulk/ tone/ strength lower extremities , thigh and legs : 5/5 Deep tendon reflexes : Normal Knee Jerk. Normal Ankle Jerk . Vertebral body tenderness to palpation over L3, L4, L5 Lumbar Facet Loading Test positive Straight Leg Raise: positive at 30 degrees right side/ left side Gaenslen's Test positive Sacral spine : Severe tenderness over the Sacroiliac joint: right side / left side Range of motion: Flexion of the lumbar spine <60 degrees Range of motion: Extension of the lumbar spine <20 degrees Gaenslen's Test positive right side / left side Manuela test: positive right side / left side Thigh Thrust Test positive right side / left side Sacral Thrust Test positive right side / left side Assessment and plan: Chronic LBP secondary to lumbar DDD, spondylosis with facet arthropathy without myelopathy Chronic and current use of high-risk medication (Opioids). The patient was counseled about risk of opioid use, psychological risk associated with opioids and was orally counseled to not overuse , divert or sell medications. Pt is to store medication in a safe location. The patient is counseled against driving while using narcotic medications and also not to use alcohol or any illicit recreational drugs. Patient verbalized understanding that the lack of compliance will result in failure to renew narcotic prescription(s) as well as possible discharge from the clinic Diagnoses, prognosis and treatment options including but not limited to physical therapy, surgical interventions, interventional therapies and medication management including narcotics and adjuvant medication were discussed. All patient questions answered MAPS reviewed and it was appropriate. UDS collected today 08/24/22. Prescription refill for [place] 10/325mg #60, Neurontin, Sen[place]ot w 1 RF I have spent less than 30 minutes on patient care today. Dr Ramsey was available by phone for the evaluation of this patient. The time was used to review the medical records including relevant urine studies and Prescription history (MAPs), review of the available imaging, evaluation and examination of the patient, coordination of care with the medical staff and if applicable referring physicians, as well as creation of the medical record PQRS Narrative: Smoking Status Current every day smoker Narcotic Agreement Date Signed 11/17/21 Hx Alcohol Use (MH) No Home Medications: Ambulatory Orders Aspirin 81 mg PO DAILY 04/02/15 Dextroamphetamine/Amphetamine [Adderall] 15 mg PO BID 07/24/15 Ergocalciferol [Vitamin D2] 50,000 unit PO [id number] 09/02/16 Metoprolol Tartrate [Lopressor] 50 mg PO BID 05/09/17 Rosuvastatin Calcium [Crestor] 40 mg PO DAILY 11/22/17 Omeprazole 20 mg PO DAILY PRN 09/08/20 Albuterol Inhaler [Ventolin Hfa Inhaler] 1 - 2 puff INHALATION QID PRN 01/10/22 Budesonide-Formot 160-4.5 Mcg [Symbicort 160-4.5 Mcg Inhaler] 1 puff INHALATION BID 01/10/22 Polymyxin B-Trimeth Sulf Ophth [Polytrim Opthalmic] 1 drops BOTH EYES Q3H 7 Days #10 ml 03/31/22 Cyclobenzaprine [Flexeril] 10 mg PO HS PRN 30 Days #30 tab 06/29/22 Gabapentin [Neurontin] 300 mg PO TID 30 Days #90 cap 08/24/22 HYDROcodone/APAP 10-325MG [[place] 10-325] 1 tab PO Q12HR PRN 30 Days #60 tab 08/24/22 HYDROcodone/APAP 10-325MG [[place] 10-325] 1 tab PO Q12HR PRN 30 Days #60 tab 08/24/22 Sennosides [Senokot] 8.6 mg PO BID PRN 30 Days #60 tablet 08/24/22 Controlled Substance Measures - Controlled Substance Measures Is patient prescribed a controlled substance at discharge?: Yes When asked, does pt state using other controlled substances?: Yes If prescribed controlled substance>3 days was MAPS reviewed?: Yes
== END ==
LOC: PNWHC3 07:38
PROVIDERS: ATTEND Specialist
DX: M51.36 Other intervertebral disc degeneration, lumbar region (principal); M47.816 Spondylosis without myelopathy or radiculopathy, lumbar region; Z79.891 Long term (current) use of opiate analgesic; G89.29 Other chronic pain; Z79.82 Long term (current) use of aspirin; F17.200 Nicotine dependence, unspecified, uncomplicated
CPT/HCPCS: 80307; G0482; G0463; 99212

== ENCOUNTER → 2022-10-19 | Outpatient (CLI) | payer OTHER ==
[2022-10-19 08:48] VITALS: BP 124/85; PULSE 67; RESP 18; TEMP 98.4
--- NOTE | 2022-10-19 14:18 | P.PAINPG ---
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 Pain level is provoked at 8 /10 in intensity, constant, localized in the lumbar spine, burning in character w shooting towards the BLEs, R>L. Pain is provoked by standing/ walking for periods of > 5 min. Pain is alleviated with heat, ice, medications, topicals, PT 5 yrs ago, home exercise regimen, repositioning and rest. Interventional pain procedures completed include BL RFA L3-L5 (2020) Patient is currently on [place], Flexeril, Neurontin Patient denies any side effects of the medication(s), denies excessive drowsiness or sleepiness, denies suicidal ideation and reports that the current pain medication is helping to control the pain and improve activities of daily living. Patient denies any motor or sensory deficits. Patient denies any fever or night sweats, denies any change in the bowel movements or urination. Physical Examination: -Constitutional: Cooperative. Not in acute distress . - Neurologic: Cranial nerve II to XII intact. No focal neurological deficits. - Psychatric: Alert & oriented x 3. Matching mood & appropriate affect. Judgment and insight intact. - Musculoskeletal: Cervical spine: Muscle bulk/ tone/ strength in the bilateral upper extremities normal Vertebral body tenderness to palpation over Spurling test positive Distraction test positive Facet loading test positive TTP Thoracic spine Muscle bulk / tone/ strength in the bilateral paraspinal muscles normal Vertebral body tender to palpation over Facet loading test positive TTP Lumbar spine: Motor bulk/ tone/ strength lower extremities , thigh and legs : 5/5 Deep tendon reflexes : Normal Knee Jerk. Normal Ankle Jerk . Vertebral body tenderness to palpation over L3, L4, L5 Lumbar Facet Loading Test positive Straight Leg Raise: positive at 30 degrees right side/ left side Gaenslen's Test positive Sacral spine : Severe tenderness over the Sacroiliac joint: right side / left side Range of motion: Flexion of the lumbar spine <60 degrees Range of motion: Extension of the lumbar spine <20 degrees Gaenslen's Test positive right side / left side Manuela test: positive right side / left side Thigh Thrust Test positive right side / left side Sacral Thrust Test positive right side / left side Assessment and plan: Chronic LBP secondary to lumbar DDD, spondylosis with facet arthropathy without myelopathy Chronic and current use of high-risk medication (Opioids). The patient was counseled about risk of opioid use, psychological risk associated with opioids and was orally counseled to not overuse , divert or sell medications. Pt is to store medication in a safe location. The patient is counseled against driving while using narcotic medications and also not to use alcohol or any illicit recreational drugs. Patient verbalized understanding that the lack of compliance will result in failure to renew narcotic prescription(s) as well as possible discharge from the clinic Diagnoses, prognosis and treatment options including but not limited to physical therapy, surgical interventions, interventional therapies and medication management including narcotics and adjuvant medication were discussed. All patient questions answered MAPS reviewed and it was appropriate. UDS from 08/24/22 reviewed and con sachint. Prescription refill for [place] 10/325mg #60, Neurontin, [place] w 1 RF I have spent less than 30 minutes on patient care today. Dr Ramsey was available by phone for the evaluation of this patient. The time was used to review the medical records including relevant urine studies and Prescription history (MAPs), review of the available imaging, evaluation and examination of the patient, coordination of care with the medical staff and if applicable referring physicians, as well as creation of the medical record PQRS Narrative: Smoking Status Current every day smoker Narcotic Agreement Date Signed 11/17/21 Hx Alcohol Use (MH) No Home Medications: Ambulatory Orders Aspirin 81 mg PO DAILY 04/02/15 Dextroamphetamine/Amphetamine [Adderall] 15 mg PO BID 07/24/15 Ergocalciferol [Vitamin D2] 50,000 unit PO [id number] 09/02/16 Metoprolol Tartrate [Lopressor] 50 mg PO BID 05/09/17 Rosuvastatin Calcium [Crestor] 40 mg PO DAILY 11/22/17 Omeprazole 20 mg PO DAILY PRN 09/08/20 Albuterol Inhaler [Ventolin Hfa Inhaler] 1 - 2 puff INHALATION QID PRN 01/10/22 Budesonide-Formot 160-4.5 Mcg [Symbicort 160-4.5 Mcg Inhaler] 1 puff INHALATION BID 01/10/22 Polymyxin B-Trimeth Sulf Ophth [Polytrim Opthalmic] 1 drops BOTH EYES Q3H 7 Days #10 ml 03/31/22 Cyclobenzaprine [Flexeril] 10 mg PO HS PRN 30 Days #30 tab 06/29/22 Gabapentin [Neurontin] 300 mg PO TID 30 Days #90 cap 08/24/22 HYDROcodone/APAP 10-325MG [[place] 10-325] 1 tab PO Q12HR PRN 30 Days #60 tab 08/24/22 HYDROcodone/APAP 10-325MG [[place] 10-325] 1 tab PO Q12HR PRN 30 Days #60 tab 08/24/22 Sennosides [Senokot] 8.6 mg PO BID PRN 30 Days #60 tablet 08/24/22 HYDROcodone/APAP 10-325MG [[place] 10-325] 1 tab PO BID PRN 30 Days #60 tab 10/06/22 Controlled Substance Measures - Controlled Substance Measures Is patient prescribed a controlled substance at discharge?: No
== END ==
LOC: PNWHC3 07:22
PROVIDERS: ATTEND Specialist
DX: M51.36 Other intervertebral disc degeneration, lumbar region (principal); M47.816 Spondylosis without myelopathy or radiculopathy, lumbar region; G89.29 Other chronic pain; F17.200 Nicotine dependence, unspecified, uncomplicated; Z79.891 Long term (current) use of opiate analgesic; Z79.82 Long term (current) use of aspirin
CPT/HCPCS: 99211

== ENCOUNTER → 2022-12-21 | Outpatient (CLI) | payer OTHER ==
[2022-12-21 10:17] VITALS: BP 117/86; PULSE 69; RESP 15; TEMP 97.9
--- NOTE | 2022-12-21 15:39 | P.PAINPG ---
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 Pain level is provoked at 7 /10 in intensity, constant, localized in the lumbar spine, tingling in character w shooting towards the BLEs, R>L. Pain is provoked by standing/ walking for periods of > 5 min. Pain is alleviated with heat, ice, medications, topicals, PT 5 yrs ago, home exercise regimen, repositioning and rest. Interventional pain procedures completed include BL RFA L3-L5 (2020) Patient is currently on [place], Flexeril, Neurontin Patient denies any side effects of the medication(s), denies excessive drowsiness or sleepiness, denies suicidal ideation and reports that the current pain medication is helping to control the pain and improve activities of daily living. Patient denies any motor or sensory deficits. Patient denies any fever or night sweats, denies any change in the bowel movements or urination. Physical Examination: -Constitutional: Cooperative. Not in acute distress . - Neurologic: Cranial nerve II to XII intact. No focal neurological deficits. - Psychatric: Alert & oriented x 3. Matching mood & appropriate affect. Judgment and insight intact. - Musculoskeletal: Cervical spine: Muscle bulk/ tone/ strength in the bilateral upper extremities normal Vertebral body tenderness to palpation over Spurling test positive Distraction test positive Facet loading test positive TTP Thoracic spine Muscle bulk / tone/ strength in the bilateral paraspinal muscles normal Vertebral body tender to palpation over Facet loading test positive TTP Lumbar spine: Motor bulk/ tone/ strength lower extremities , thigh and legs : 5/5 Deep tendon reflexes : Normal Knee Jerk. Normal Ankle Jerk . Vertebral body tenderness to palpation over L3, L4, L5 Lumbar Facet Loading Test positive Straight Leg Raise: positive at 30 degrees right side/ left side Gaenslen's Test positive Sacral spine : Severe tenderness over the Sacroiliac joint: right side / left side Range of motion: Flexion of the lumbar spine <60 degrees Range of motion: Extension of the lumbar spine <20 degrees Gaenslen's Test positive right side / left side Manuela test: positive right side / left side Thigh Thrust Test positive right side / left side Sacral Thrust Test positive right side / left side Assessment and plan: Chronic LBP secondary to lumbar DDD, spondylosis with facet arthropathy without myelopathy Chronic and current use of high-risk medication (Opioids). The patient was counseled about risk of opioid use, psychological risk associated with opioids and was orally counseled to not overuse , divert or sell medications. Pt is to store medication in a safe location. The patient is counseled against driving while using narcotic medications and also not to use alcohol or any illicit recreational drugs. Patient verbalized understanding that the lack of compliance will result in failure to renew narcotic prescription(s) as well as possible discharge from the clinic Diagnoses, prognosis and treatment options including but not limited to physical therapy, surgical interventions, interventional therapies and medication management including narcotics and adjuvant medication were discussed. All patient questions answered MAPS reviewed and it was appropriate. UDS from 08/24/22 reviewed and co nsistent. Opiate agreement up to date. Prescription refill for [place] 10/325mg #60, Neurontin, [place] w 1 RF I have spent less than 30 minutes on patient care today. Dr Ramsey was available by phone for the evaluation of this patient. The time was used to review the medical records including relevant urine studies and Prescription history (MAPs), review of the available imaging, evaluation and examination of the patient, coordination of care with the medical staff and if applicable referring physicians, as well as creation of the medical record PQRS Narrative: Smoking Status Current every day smoker Narcotic Agreement Date Signed 11/17/21 Hx Alcohol Use (MH) No Home Medications: Ambulatory Orders Aspirin 81 mg PO DAILY 04/02/15 Dextroamphetamine/Amphetamine [Adderall] 15 mg PO BID 07/24/15 Ergocalciferol [Vitamin D2] 50,000 unit PO [id number] 09/02/16 Metoprolol Tartrate [Lopressor] 50 mg PO BID 05/09/17 Rosuvastatin Calcium [Crestor] 40 mg PO DAILY 11/22/17 Omeprazole 20 mg PO DAILY PRN 09/08/20 Albuterol Inhaler [Ventolin Hfa Inhaler] 1 - 2 puff INHALATION QID PRN 01/10/22 Budesonide-Formot 160-4.5 Mcg [Symbicort 160-4.5 Mcg Inhaler] 1 puff INHALATION BID 01/10/22 Polymyxin B-Trimeth Sulf Ophth [Polytrim Opthalmic] 1 drops BOTH EYES Q3H 7 Days #10 ml 03/31/22 Cyclobenzaprine [Flexeril] 10 mg PO HS PRN 30 Days #30 tab 06/29/22 HYDROcodone/APAP 10-325MG [[place] 10-325] 1 tab PO BID PRN 30 Days #60 tab 10/06/22 Gabapentin [Neurontin] 300 mg PO TID 30 Days #90 cap 12/21/22 HYDROcodone/APAP 10-325MG [[place] 10-325] 1 tab PO Q12HR PRN 30 Days #60 tab 12/21/22 HYDROcodone/APAP 10-325MG [[place] 10-325] 1 tab PO Q12HR PRN 30 Days #60 tab 12/21/22 Sennosides [Senokot] 8.6 mg PO BID PRN 30 Days #60 tablet 12/21/22 Controlled Substance Measures - Controlled Substance Measures Is patient prescribed a controlled substance at discharge?: Yes When asked, does pt state using other controlled substances?: No If prescribed controlled substance>3 days was MAPS reviewed?: Yes
== END ==
LOC: PNWHC3 09:56
PROVIDERS: ATTEND Specialist
DX: M51.36 Other intervertebral disc degeneration, lumbar region (principal); M47.816 Spondylosis without myelopathy or radiculopathy, lumbar region; G89.29 Other chronic pain; F17.200 Nicotine dependence, unspecified, uncomplicated; Z79.891 Long term (current) use of opiate analgesic; Z79.82 Long term (current) use of aspirin
CPT/HCPCS: 99211

== ENCOUNTER → 2023-02-15 | Outpatient (CLI) | payer MEDICARE, OTHER ==
[2023-02-15 08:36] VITALS: BP 163/101; PULSE 60; RESP 16; TEMP 98.7
--- NOTE | 2023-02-15 14:52 | P.PAINPG ---
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 Pain level is provoked at 8 /10 in intensity, constant, localized in the lumbar spine, tingling in character w shooting towards the BLEs, R>L. Pain is provoked by standing/ walking for periods of > 5 min. Pain is alleviated with heat, ice, medications, topicals, PT 5 yrs ago, home exercise regimen, repositioning and rest. Interventional pain procedures completed include BL RFA L3-L5 (2020) Patient is currently on [place], Flexeril, Neurontin Patient denies any side effects of the medication(s), denies excessive drowsiness or sleepiness, denies suicidal ideation and reports that the current pain medication is helping to control the pain and improve activities of daily living. Patient denies any motor or sensory deficits. Patient denies any fever or night sweats, denies any change in the bowel movements or urination. Physical Examination: -Constitutional: Cooperative. Not in acute distress . - Neurologic: Cranial nerve II to XII intact. No focal neurological deficits. - Psychatric: Alert & oriented x 3. Matching mood & appropriate affect. Judgment and insight intact. - Musculoskeletal: Cervical spine: Muscle bulk/ tone/ strength in the bilateral upper extremities normal Vertebral body tenderness to palpation over Spurling test positive Distraction test positive Facet loading test positive TTP Thoracic spine Muscle bulk / tone/ strength in the bilateral paraspinal muscles normal Vertebral body tender to palpation over Facet loading test positive TTP Lumbar spine: Motor bulk/ tone/ strength lower extremities , thigh and legs : 5/5 Deep tendon reflexes : Normal Knee Jerk. Normal Ankle Jerk . Vertebral body tenderness to palpation over L3, L4, L5 Lumbar Facet Loading Test positive Straight Leg Raise: positive at 30 degrees right side/ left side Gaenslen's Test positive Sacral spine : Severe tenderness over the Sacroiliac joint: right side / left side Range of motion: Flexion of the lumbar spine <60 degrees Range of motion: Extension of the lumbar spine <20 degrees Gaenslen's Test positive right side / left side Manuela test: positive right side / left side Thigh Thrust Test positive right side / left side Sacral Thrust Test positive right side / left side Assessment and plan: Chronic LBP secondary to lumbar DDD, spondylosis with facet arthropathy without myelopathy Chronic and current use of high-risk medication (Opioids). The patient was counseled about risk of opioid use, psychological risk associated with opioids and was orally counseled to not overuse , divert or sell medications. Pt is to store medication in a safe location. The patient is counseled against driving while using narcotic medications and also not to use alcohol or any illicit recreational drugs. Patient verbalized understanding that the lack of compliance will result in failure to renew narcotic prescription(s) as well as possible discharge from the clinic Diagnoses, prognosis and treatment options including but not limited to physical therapy, surgical interventions, interventional therapies and medication management including narcotics and adjuvant medication were discussed. All patient questions answered MAPS reviewed and it was appropriate. UDS collected 02/15/23. Opiate agreement up to date. Prescription refill for [place] 10/325mg #60, Neurontin 300mg #90, [place] w 1 RF I have spent less than 30 minutes on patient care today. Dr Ramsey was availa ble by phone for the evaluation of this patient. The time was used to review the medical records including relevant urine studies and Prescription history (MAPs), review of the available imaging, evaluation and examination of the patient, coordination of care with the medical staff and if applicable referring physicians, as well as creation of the medical record PQRS Narrative: Smoking Status Current every day smoker Narcotic Agreement Date Signed 11/17/21 Hx Alcohol Use (MH) No Home Medications: Ambulatory Orders Aspirin 81 mg PO DAILY 04/02/15 Dextroamphetamine/Amphetamine [Adderall] 15 mg PO BID 07/24/15 Ergocalciferol [Vitamin D2] 50,000 unit PO [id number] 09/02/16 Metoprolol Tartrate [Lopressor] 50 mg PO BID 05/09/17 Rosuvastatin Calcium [Crestor] 40 mg PO DAILY 11/22/17 Omeprazole 20 mg PO DAILY PRN 09/08/20 Albuterol Inhaler [Ventolin Hfa Inhaler] 1 - 2 puff INHALATION QID PRN 01/10/22 Budesonide-Formot 160-4.5 Mcg [Symbicort 160-4.5 Mcg Inhaler] 1 puff INHALATION BID 01/10/22 Polymyxin B-Trimeth Sulf Ophth [Polytrim Opthalmic] 1 drops BOTH EYES Q3H 7 Days #10 ml 03/31/22 Cyclobenzaprine [Flexeril] 10 mg PO HS PRN 30 Days #30 tab 06/29/22 HYDROcodone/APAP 10-325MG [[place] 10-325] 1 tab PO BID PRN 30 Days #60 tab 10/06/22 Gabapentin [Neurontin] 300 mg PO TID 30 Days #90 cap 12/21/22 HYDROcodone/APAP 10-325MG [[place] 10-325] 1 tab PO Q12HR PRN 30 Days #60 tab 12/21/22 HYDROcodone/APAP 10-325MG [[place] 10-325] 1 tab PO Q12HR PRN 30 Days #60 tab 12/21/22 Sennosides [Senokot] 8.6 mg PO BID PRN 30 Days #60 tablet 12/21/22 HYDROcodone/APAP 7.5-325MG [[place] 7.5-325] 1 tab PO TID PRN 30 Days #90 tab 01/16/23 Controlled Substance Measures - Controlled Substance Measures Is patient prescribed a controlled substance at discharge?: Yes When asked, does pt state using other controlled substances?: Yes If prescribed controlled substance>3 days was MAPS reviewed?: Yes If Rx opioid, was Start Talking consent form obtained?: Yes Was information provided regarding opioid addiction?: Yes
== END ==
LOC: PNWHC3 07:35
PROVIDERS: ATTEND Specialist
DX: M51.36 Other intervertebral disc degeneration, lumbar region (principal); M47.816 Spondylosis without myelopathy or radiculopathy, lumbar region; G89.29 Other chronic pain; F17.200 Nicotine dependence, unspecified, uncomplicated; Z79.891 Long term (current) use of opiate analgesic; Z51.81 Encounter for therapeutic drug level monitoring; Z79.82 Long term (current) use of aspirin
CPT/HCPCS: 80307; G0463; 99212

== ENCOUNTER → 2023-04-12 | Outpatient (CLI) | payer MEDICARE, OTHER ==
[2023-04-12 08:05] VITALS: BP 132/87; PULSE 60; RESP 15; TEMP 98.4
--- NOTE | 2023-04-12 14:26 | P.PAINPG ---
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 Pain level is provoked at 7-8 /10 in intensity, constant, localized in the lumbar spine, sharp in character w shooting towards the BLEs, R>L. Pain is provoked by standing/ walking for periods of > 5 min. Pain is alleviated with heat, ice, medications, topicals, PT 5 yrs ago, home exercise regimen, repositioning and rest. Will picker tender Neurontin from previous refill today or tomorrow. Interventional pain procedures completed include BL RFA L3-L5 (2020) Patient is currently on [place], Flexeril, Neurontin Patient denies any side effects of the medication(s), denies excessive drowsiness or sleepiness, denies suicidal ideation and reports that the current pain medication is helping to control the pain and improve activities of daily living. Patient denies any motor or sensory deficits. Patient denies any fever or night sweats, denies any change in the bowel movements or urination. Physical Examination: -Constitutional: Cooperative. Not in acute distress . - Neurologic: Cranial nerve II to XII intact. No focal neurological deficits. - Psychatric: Alert & oriented x 3. Matching mood & appropriate affect. Judgment and insight intact. - Musculoskeletal: Cervical spine: Muscle bulk/ tone/ strength in the bilateral upper extremities normal Vertebral body tenderness to palpation over Spurling test positive Distraction test positive Facet loading test positive TTP Thoracic spine Muscle bulk / tone/ strength in the bilateral paraspinal muscles normal Vertebral body tender to palpation over Facet loading test positive TTP Lumbar spine: Motor bulk/ tone/ strength lower extremities , thigh and legs : 5/5 Deep tendon reflexes : Normal Knee Jerk. Normal Ankle Jerk . Vertebral body tenderness to palpation over L3, L4, L5 Lumbar Facet Loading Test positive Straight Leg Raise: positive at 30 degrees right side/ left side Gaenslen's Test positive Sacral spine : Severe tenderness over the Sacroiliac joint: right side / left side Range of motion: Flexion of the lumbar spine <60 degrees Range of motion: Extension of the lumbar spine <20 degrees Gaenslen's Test positive right side / left side Manuela test: positive right side / left side Thigh Thrust Test positive right side / left side Sacral Thrust Test positive right side / left side Assessment and plan: Chronic LBP secondary to lumbar DDD, spondylosis with facet arthropathy without myelopathy Chronic and current use of high-risk medication (Opioids). The patient was counseled about risk of opioid use, psychological risk associated with opioids and was orally counseled to not overuse , divert or sell medications. Pt is to store medication in a safe location. The patient is counseled against driving while using narcotic medications and also not to use alcohol or any illicit recreational drugs. Patient verbalized understanding that the lack of compliance will result in failure to renew narcotic prescription(s) as well as possible discharge from the clinic Diagnoses, prognosis and treatment options including but not limited to physical therapy, surgical interventions, interventional therapies and medication management including narcotics and adjuvant medication were discussed. All patient questions answered MAPS reviewed and it was appropriate. UDS fr 02/15/23 reviewed and consistent. Opiate agreement up to date. Prescription refill for [place] 10/325mg #60, Neurontin 300mg #90, [place] w 1 RF I have spent less than 30 minutes on patient care today. Dr Ramsey was available by phone for the evaluation of this patient. The time was used to review the medical records including relevant urine studies and Prescription history (MAPs), review of the available imaging, evaluation and examination of the patient, coordination of care with the medical staff and if applicable referring physicians, as well as creation of the medical record PQRS Narrative: Smoking Status Current every day smoker Narcotic Agreement Date Signed 11/17/21 Hx Alcohol Use (MH) No Home Medications: Ambulatory Orders Aspirin 81 mg PO DAILY 04/02/15 Dextroamphetamine/Amphetamine [Adderall] 15 mg PO BID 07/24/15 Ergocalciferol [Vitamin D2] 50,000 unit PO [id number] 09/02/16 Metoprolol Tartrate [Lopressor] 50 mg PO BID 05/09/17 Rosuvastatin Calcium [Crestor] 40 mg PO DAILY 11/22/17 Omeprazole 20 mg PO DAILY PRN 09/08/20 Albuterol Inhaler [Ventolin Hfa Inhaler] 1 - 2 puff INHALATION QID PRN 01/10/22 Budesonide-Formot 160-4.5 Mcg [Symbicort 160-4.5 Mcg Inhaler] 1 puff INHALATION BID 01/10/22 Polymyxin B-Trimeth Sulf Ophth [Polytrim Opthalmic] 1 drops BOTH EYES Q3H 7 Days #10 ml 03/31/22 Cyclobenzaprine [Flexeril] 10 mg PO HS PRN 30 Days #30 tab 06/29/22 Gabapentin [Neurontin] 300 mg PO TID 30 Days #90 cap 02/15/23 HYDROcodone/APAP 10-325MG [[place] 10-325] 1 tab PO Q12HR PRN 30 Days #60 tab 02/15/23 HYDROcodone/APAP 10-325MG [[place] 10-325] 1 tab PO Q12HR PRN 30 Days #60 tab 02/15/23 Sennosides [Senokot] 8.6 mg PO BID PRN 30 Days #60 tablet 02/15/23 Controlled Substance Measures - Controlled Substance Measures Is patient prescribed a controlled substance at discharge?: Yes When asked, does pt state using other controlled substances?: Yes If prescribed controlled substance>3 days was MAPS reviewed?: Yes
== END ==
LOC: PNWHC3 07:28
PROVIDERS: ATTEND Specialist
DX: M47.816 Spondylosis without myelopathy or radiculopathy, lumbar region (principal); M51.36 Other intervertebral disc degeneration, lumbar region; G89.29 Other chronic pain; F17.200 Nicotine dependence, unspecified, uncomplicated; Z79.891 Long term (current) use of opiate analgesic; Z79.82 Long term (current) use of aspirin
CPT/HCPCS: 99211

== ENCOUNTER → 2023-06-07 | Outpatient (CLI) | payer MEDICARE, OTHER ==
[2023-06-07 08:46] VITALS: BP 139/84; PULSE 61; RESP 16; TEMP 97.3
--- NOTE | 2023-06-07 14:24 | P.PAINPG ---
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 Pain level is provoked at 8 /10 in intensity, constant, localized in the lumbar spine, sharp in character w shooting towards the BLEs, R>L. Pain is provoked by standing/ walking for periods of > 5 min. Pain is alleviated with heat, ice, medications, topical, PT 5 yrs ago, home exercise regimen, repositioning and rest. Interventional pain procedures completed include BL RFA L3-L5 (2020) Patient is currently on [place] 10/325mg #60, Flexeril, Neurontin 300mg #90 Patient denies any side effects of the medication(s), denies excessive drowsiness or sleepiness, denies suicidal ideation and reports that the current pain medication is helping to control the pain and improve activities of daily living. Patient denies any motor or sensory deficits. Patient denies any fever or night sweats, denies any change in the bowel movements or urination. Physical Examination: -Constitutional: Cooperative. Not in acute distress . - Neurologic: Cranial nerve II to XII intact. No focal neurological deficits. - Psychatric: Alert & oriented x 3. Matching mood & appropriate affect. Judgment and insight intact. - Musculoskeletal: Cervical spine: Muscle bulk/ tone/ strength in the bilateral upper extremities normal Vertebral body tenderness to palpation over Spurling test positive Distraction test positive Facet loading test positive TTP Thoracic spine Muscle bulk / tone/ strength in the bilateral paraspinal muscles normal Vertebral body tender to palpation over Facet loading test positive TTP Lumbar spine: Motor bulk/ tone/ strength lower extremities , thigh and legs : 5/5 Deep tendon reflexes : Normal Knee Jerk. Normal Ankle Jerk . Vertebral body tenderness to palpation over L3, L4, L5 Lumbar Facet Loading Test positive Straight Leg Raise: positive at 30 degrees right side/ left side Gaenslen's Test positive Sacral spine : Severe tenderness over the Sacroiliac joint: right side / left side Range of motion: Flexion of the lumbar spine <60 degrees Range of motion: Extension of the lumbar spine <20 degrees Gaenslen's Test positive right side / left side Manuela test: positive right side / left side Thigh Thrust Test positive right side / left side Sacral Thrust Test positive right side / left side Assessment and plan: Chronic LBP secondary to lumbar DDD, spondylosis with facet arthropathy without myelopathy Chronic and current use of high-risk medication (Opioids). The patient was counseled about risk of opioid use, psychological risk associated with opioids and was orally counseled to not overuse , divert or sell medications. Pt is to store medication in a safe location. The patient is counseled against driving while using narcotic medications and also not to use alcohol or any illicit recreational drugs. Patient verbalized understanding that the lack of compliance will result in failure to renew narcotic prescription(s) as well as possible discharge from the clinic Diagnoses, prognosis and treatment options including but not limited to physical therapy, surgical interventions, interventional therapies and medication management including narcotics and adjuvant medication were discussed. All patient questions answered MAPS reviewed and it was appropriate. UDS fr 02/15/23 reviewed and consistent. Opiate agreement up to date. Prescription refill for [place] 10/325mg #60, Neurontin 300mg #90, Flexeril 10mg #30 w 1 RF I have spent less than 30 minutes on patient care today. Dr Ramsey was available by phone for the evaluation of this patient. The time was used to review the medical records including relevant urine studies and Prescription history (MAPs), review of the available imaging, evaluation and examination of the patient, coordination of care with the medical staff and if applicable referring physicians, as well as creation of the medical record PQRS Narrative: Smoking Status Current every day smoker Narcotic Agreement Date Signed 02/15/23 Hx Alcohol Use (MH) No Home Medications: Ambulatory Orders Aspirin 81 mg PO DAILY 04/02/15 Dextroamphetamine/Amphetamine [Adderall] 15 mg PO BID 07/24/15 Ergocalciferol [Vitamin D2] 50,000 unit PO [id number] 09/02/16 Metoprolol Tartrate [Lopressor] 50 mg PO BID 05/09/17 Rosuvastatin Calcium [Crestor] 40 mg PO DAILY 11/22/17 Omeprazole 20 mg PO DAILY PRN 09/08/20 Albuterol Inhaler [Ventolin Hfa Inhaler] 1 - 2 puff INHALATION QID PRN 01/10/22 Budesonide-Formot 160-4.5 Mcg [Symbicort 160-4.5 Mcg Inhaler] 1 puff INHALATION BID 01/10/22 Polymyxin B-Trimeth Sulf Ophth [Polytrim Opthalmic] 1 drops BOTH EYES Q3H 7 Days #10 ml 03/31/22 Sennosides [Senokot] 8.6 mg PO BID PRN 30 Days #60 tablet 02/15/23 Cyclobenzaprine [Flexeril] 10 mg PO HS PRN 30 Days #30 tab 06/07/23 Gabapentin [Neurontin] 300 mg PO TID 30 Days #90 cap 06/07/23 HYDROcodone/APAP 10-325MG [[place] 10-325] 1 tab PO Q12HR PRN 30 Days #60 tab HYDROcodone/APAP 10-325MG [[place] 10-325] 1 tab PO Q12HR PRN 30 Days #60 tab 06/07/23 Controlled Substance Measures - Controlled Substance Measures Is patient prescribed a controlled substance at discharge?: Yes When asked, does pt state using other controlled substances?: Yes If prescribed controlled substance>3 days was MAPS reviewed?: Yes
== END ==
LOC: PNWHC3 07:00
PROVIDERS: ATTEND Specialist
DX: M51.36 Other intervertebral disc degeneration, lumbar region (principal); M47.816 Spondylosis without myelopathy or radiculopathy, lumbar region; G89.29 Other chronic pain; F17.200 Nicotine dependence, unspecified, uncomplicated; Z79.891 Long term (current) use of opiate analgesic; Z79.82 Long term (current) use of aspirin
CPT/HCPCS: 99211

== ENCOUNTER → 2023-08-02 | Outpatient (CLI) | payer MEDICARE, OTHER ==
[2023-08-02 08:10] VITALS: BP 126/90; PULSE 87; RESP 16; TEMP 97.1
--- NOTE | 2023-08-02 14:07 | P.PAINPG ---
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 Pain level is provoked at 8 /10 in intensity, constant, localized in the R lower lumbar spine, sharp in character w shooting towards the BLEs, R>L. Pain is provoked by standing/ walking for periods of > 5 min or over activity. Pain is alleviated with heat, ice, medications, topical, PT 5 yrs ago, home exercise regimen, repositioning and rest. Interventional pain procedures completed include BL RFA L3-L5 (2020) Patient is currently on [place] 10/325mg #60, Flexeril, Neurontin 300mg #90 Patient denies any side effects of the medication(s), denies excessive drowsiness or sleepiness, denies suicidal ideation and reports that the current pain medication is helping to control the pain and improve activities of daily living. Patient denies any motor or sensory deficits. Patient denies any fever or night sweats, denies any change in the bowel movements or urination. Physical Examination: -Constitutional: Cooperative. Not in acute distress . - Neurologic: Cranial nerve II to XII intact. No focal neurological deficits. - Psychatric: Alert & oriented x 3. Matching mood & appropriate affect. Judgment and insight intact. - Musculoskeletal: Cervical spine: Muscle bulk/ tone/ strength in the bilateral upper extremities normal Vertebral body tenderness to palpation over Spurling test positive Distraction test positive Facet loading test positive TTP Thoracic spine Muscle bulk / tone/ strength in the bilateral paraspinal muscles normal Vertebral body tender to palpation over Facet loading test positive TTP Lumbar spine: Motor bulk/ tone/ strength lower extremities , thigh and legs : 5/5 Deep tendon reflexes : Normal Knee Jerk. Normal Ankle Jerk . Vertebral body tenderness to palpation over L3, L4, L5 Lumbar Facet Loading Test positive Straight Leg Raise: positive at 30 degrees right side/ left side Gaenslen's Test positive Sacral spine : Severe tenderness over the Sacroiliac joint: right side / left side Range of motion: Flexion of the lumbar spine <60 degrees Range of motion: Extension of the lumbar spine <20 degrees Gaenslen's Test positive right side / left side Manuela test: positive right side / left side Thigh Thrust Test positive right side / left side Sacral Thrust Test positive right side / left side Assessment and plan: Chronic LBP secondary to lumbar DDD, spondylosis with facet arthropathy without myelopathy Chronic and current use of high-risk medication (Opioids). The patient was counseled about risk of opioid use, psychological risk associated with opioids and was orally counseled to not overuse , divert or sell medications. Pt is to store medication in a safe location. The patient is counseled against driving while using narcotic medications and also not to use alcohol or any illicit recreational drugs. Patient verbalized understanding that the lack of compliance will result in failure to renew narcotic prescription(s) as well as possible discharge from the clinic Diagnoses, prognosis and treatment options including but not limited to physical therapy, surgical interventions, interventional therapies and medication management including narcotics and adjuvant medication were discussed. All patient questions answered MAPS reviewed and it was appropriate. UDS fr 02/15/23 reviewed and consistent. Opiate agreement up to date. Prescription refill for [place] 10/325mg #60, incr Neurontin 300mg #120 w 1 RF. Will hold Flexeril 10mg #30 at this time I have spent less than 30 minutes on patient care today. Dr Ramsey was available by phone for the evaluation of this patient. The time was used to review the medical records including relevant urine studies and Prescription history (MAPs), review of the available imaging, evaluation and examination of the patient, coordination of care with the medical staff and if applicable referring physicians, as well as creation of the medical record - Pain Location Right Lower Back Non-Pharmacological Interventions: Heat, Ice, Inactivity, Massage, Physical Therapy, Position/Reposition, Sitting Pharmacological Interventions: Block, Epidural, PRN Medication, Scheduled Medication, Topical Medication PQRS Narrative: Smoking Status Current every day smoker Narcotic Agreement Date Signed 02/15/23 Hx Alcohol Use (MH) No Home Medications: Ambulatory Orders Aspirin 81 mg PO DAILY 04/02/15 Dextroamphetamine/Amphetamine [Adderall] 15 mg PO BID 07/24/15 Ergocalciferol [Vitamin D2] 50,000 unit PO [id number] 09/02/16 Metoprolol Tartrate [Lopressor] 50 mg PO BID 01/30/18 Rosuvastatin Calcium [Crestor] 40 mg PO DAILY 11/22/17 Omeprazole 20 mg PO DAILY PRN 09/08/20 Albuterol Inhaler [Ventolin Hfa Inhaler] 1 - 2 puff INHALATION QID PRN 01/10/22 Budesonide-Formot 160-4.5 Mcg [Symbicort 160-4.5 Mcg Inhaler] 1 puff INHALATION BID 01/10/22 Polymyxin B-Trimeth Sulf Ophth [Polytrim Opthalmic] 1 drops BOTH EYES Q3H 7 Days #10 ml 03/31/22 Sennosides [Senokot] 8.6 mg PO BID PRN 30 Days #60 tablet 02/15/23 Cyclobenzaprine [Flexeril] 10 mg PO HS PRN 30 Days #30 tab 06/07/23 Gabapentin [Neurontin] 300 mg PO QID 30 Days #120 cap 08/02/23 HYDROcodone/APAP 10-325MG [[place] 10-325] 1 tab PO Q12HR PRN 30 Days #60 tab 08/02/23 HYDROcodone/APAP 10-325MG [[place] 10-325] 1 tab PO Q12HR PRN 30 Days #60 tab 08/02/23 Controlled Substance Measures - Controlled Substance Measures Is patient prescribed a controlled substance at discharge?: Yes When asked, does pt state using other controlled substances?: Yes If prescribed controlled substance>3 days was MAPS reviewed?: Yes
== END ==
LOC: PNWHC3 07:13
PROVIDERS: ATTEND Specialist
DX: M51.36 Other intervertebral disc degeneration, lumbar region (principal); M47.816 Spondylosis without myelopathy or radiculopathy, lumbar region; G89.29 Other chronic pain; F17.200 Nicotine dependence, unspecified, uncomplicated; Z79.891 Long term (current) use of opiate analgesic
CPT/HCPCS: 99211

== ENCOUNTER → 2023-09-27 | Outpatient (CLI) | payer MEDICARE, OTHER ==
[2023-09-27 08:17] VITALS: BP 120/88; PULSE 67; RESP 16; TEMP 98.6
--- NOTE | 2023-09-27 14:45 | P.PAINPG ---
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 Pain level is provoked at 7 /10 in intensity, constant, localized in the R lower lumbar spine, sharp in character w shooting towards the BLEs, R>L. Pain is provoked by standing/ walking for periods of > 5 min or over activity. Pain is alleviated with heat, ice, medications, topical, PT 5 yrs ago, home exercise regimen, repositioning and rest. Interventional pain procedures completed include BL RFA L3-L5 (2020) Patient is currently on [place] 10/325mg #60, Flexeril, Neurontin 300mg #120 Patient denies any side effects of the medication(s), denies excessive drowsiness or sleepiness, denies suicidal ideation and reports that the current pain medication is helping to control the pain and improve activities of daily living. Patient denies any motor or sensory deficits. Patient denies any fever or night sweats, denies any change in the bowel movements or urination. Physical Examination: -Constitutional: Cooperative. Not in acute distress . - Neurologic: Cranial nerve II to XII intact. No focal neurological deficits. - Psychatric: Alert & oriented x 3. Matching mood & appropriate affect. Judgment and insight intact. - Musculoskeletal: Cervical spine: Muscle bulk/ tone/ strength in the bilateral upper extremities normal Vertebral body tenderness to palpation over Spurling test positive Distraction test positive Facet loading test positive TTP Thoracic spine Muscle bulk / tone/ strength in the bilateral paraspinal muscles normal Vertebral body tender to palpation over Facet loading test positive TTP Lumbar spine: Motor bulk/ tone/ strength lower extremities , thigh and legs : 5/5 Deep tendon reflexes : Normal Knee Jerk. Normal Ankle Jerk . Vertebral body tenderness to palpation over L3, L4, L5 Lumbar Facet Loading Test positive Straight Leg Raise: positive at 30 degrees right side/ left side Gaenslen's Test positive Sacral spine : Severe tenderness over the Sacroiliac joint: right side / left side Range of motion: Flexion of the lumbar spine <60 degrees Range of motion: Extension of the lumbar spine <20 degrees Gaenslen's Test positive right side / left side Manuela test: positive right side / left side Thigh Thrust Test positive right side / left side Sacral Thrust Test positive right side / left side Assessment and plan: Chronic LBP secondary to lumbar DDD, spondylosis with facet arthropathy without myelopathy Chronic and current use of high-risk medication (Opioids). The patient was counseled about risk of opioid use, psychological risk associated with opioids and was orally counseled to not overuse , divert or sell medications. Pt is to store medication in a safe location. The patient is counseled against driving while using narcotic medications and also not to use alcohol or any illicit recreational drugs. Patient verbalized understanding that the lack of compliance will result in failure to renew narcotic prescription(s) as well as possible discharge from the clinic Diagnoses, prognosis and treatment options including but not limited to physical therapy, surgical interventions, interventional therapies and medication management including narcotics and adjuvant medication were discussed. All patient questions answered MAPS reviewed and it was appropriate. UDS collected 09/27/23. Opiate agreement updated 09/27/23. Prescription refill for [place] 10/325mg #60, Neurontin 300mg #120 w 1 RF. I have spent less than 30 minutes on patient care today. Dr Ramsey was available by phone for the evaluation of this patient. The time was used to review the medical records including relevant urine studies and Prescription history (MAPs), review of the available imaging, evaluation and examination of the patient, coordination of care with the medical staff and if applicable referring physicians, as well as creation of the medical record PQRS Narrative: Smoking Status Current every day smoker Narcotic Agreement Date Signed 02/15/23 Hx Alcohol Use (MH) No Home Medications: Ambulatory Orders Aspirin 81 mg PO DAILY 04/02/15 Dextroamphetamine/Amphetamine [Adderall] 15 mg PO BID 07/24/15 Ergocalciferol [Vitamin D2] 50,000 unit PO [id number] 09/02/16 Metoprolol Tartrate [Lopressor] 50 mg PO BID 05/09/17 Rosuvastatin Calcium [Crestor] 40 mg PO DAILY 11/22/17 Omeprazole 20 mg PO DAILY PRN 09/08/20 Albuterol Inhaler [Ventolin Hfa Inhaler] 1 - 2 puff INHALATION QID PRN 01/10/22 Budesonide-Formot 160-4.5 Mcg [Symbicort 160-4.5 Mcg Inhaler] 1 puff INHALATION BID 01/10/22 Polymyxin B-Trimeth Sulf Ophth [Polytrim Opthalmic] 1 drops BOTH EYES Q3H 7 Days #10 ml 03/31/22 Sennosides [Senokot] 8.6 mg PO BID PRN 30 Days #60 tablet 02/15/23 Cyclobenzaprine [Flexeril] 10 mg PO HS PRN 30 Days #30 tab 09/27/23 Gabapentin [Neurontin] 300 mg PO QID 30 Days #120 cap 09/27/23 HYDROcodone/APAP 10-325MG [[place] 10-325] 1 tab PO Q12HR PRN 30 Days #60 tab 0 09/27/23 HYDROcodone/APAP 10-325MG [[place] 10-325] 1 tab PO Q12HR PRN 30 Days #60 tab 09/27/23 Controlled Substance Measures - Controlled Substance Measures Is patient prescribed a controlled substance at discharge?: Yes When asked, does pt state using other controlled substances?: No If prescribed controlled substance>3 days was MAPS reviewed?: Yes If Rx opioid, was Start Talking consent form obtained?: Yes Was information provided regarding opioid addiction?: Yes
== END ==
LOC: PNWHC3 07:24
PROVIDERS: ATTEND Specialist
DX: M51.36 Other intervertebral disc degeneration, lumbar region (principal); M47.816 Spondylosis without myelopathy or radiculopathy, lumbar region; F17.200 Nicotine dependence, unspecified, uncomplicated; Z79.891 Long term (current) use of opiate analgesic
CPT/HCPCS: 80307; G0463; 99212

== ENCOUNTER → 2023-11-22 | Outpatient (CLI) | payer MEDICARE, OTHER | LOC: PNWHC3 07:30 | PROVIDERS: ATTEND Specialist | DX: M54.16 Radiculopathy, lumbar region | CPT/HCPCS: 99211 ==

== ENCOUNTER → 2024-01-17 | Outpatient (CLI) | payer MEDICARE, OTHER ==
[2024-01-17 08:00] VITALS: BP 115/74; PULSE 74; RESP 16
--- NOTE | 2024-01-17 13:13 | P.PAINPG ---
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 Pain level is provoked at 8 /10 in intensity, constant, localized in the R lower lumbar spine, sharp in character w shooting towards the BLEs, R>L. Pain is provoked by standing/ walking for periods of > 5 min or over activity. Pain is alleviated with heat, ice, medications, topical, PT 5 yrs ago, home exercise regimen, repositioning and rest. Interventional pain procedures completed include BL RFA L3-L5 (2020) Patient is currently on [place] 10/325mg #60, Flexeril, Neurontin 300mg #120 Patient denies any side effects of the medication(s), denies excessive drowsiness or sleepiness, denies suicidal ideation and reports that the current pain medication is helping to control the pain and improve activities of daily living. Patient denies any motor or sensory deficits. Patient denies any fever or night sweats, denies any change in the bowel movements or urination. Physical Examination: -Constitutional: Cooperative. Not in acute distress . - Neurologic: Cranial nerve II to XII intact. No focal neurological deficits. - Psychatric: Alert & oriented x 3. Matching mood & appropriate affect. Judgment and insight intact. - Musculoskeletal: Cervical spine: Muscle bulk/ tone/ strength in the bilateral upper extremities normal Vertebral body tenderness to palpation over Spurling test positive Distraction test positive Facet loading test positive TTP Thoracic spine Muscle bulk / tone/ strength in the bilateral paraspinal muscles normal Vertebral body tender to palpation over Facet loading test positive TTP Lumbar spine: Motor bulk/ tone/ strength lower extremities , thigh and legs : 5/5 Deep tendon reflexes : Normal Knee Jerk. Normal Ankle Jerk . Vertebral body tenderness to palpation over L3, L4, L5 Lumbar Facet Loading Test positive Straight Leg Raise: positive at 30 degrees right side/ left side Gaenslen's Test positive Sacral spine : Severe tenderness over the Sacroiliac joint: right side / left side Range of motion: Flexion of the lumbar spine <60 degrees Range of motion: Extension of the lumbar spine <20 degrees Gaenslen's Test positive right side / left side Manuela test: positive right side / left side Thigh Thrust Test positive right side / left side Sacral Thrust Test positive right side / left side Assessment and plan: Chronic LBP secondary to radiculopathy, spondylosis with facet arthropathy without myelopathy Chronic and current use of high-risk medication (Opioids). The patient was counseled about risk of opioid use, psychological risk associated with opioids and was orally counseled to not overuse , divert or sell medications. Pt is to store medication in a safe location. The patient is counseled against driving while using narcotic medications and also not to use alcohol or any illicit recreational drugs. Patient verbalized understanding that the lack of compliance will result in failure to renew narcotic prescription(s) as well as possible discharge from the clinic Diagnoses, prognosis and treatment options including but not limited to physical therapy, surgical interventions, interventional therapies and medication management including narcotics and adjuvant medication were discussed. All patient questions answered MAPS reviewed and it was appropriate. UDS from 09/27/23 reviewed and consistent. Opiate agreement updated 01/17/24. Prescription refill for [place] 10/325mg #60, Neurontin 300mg #120 w 1 RF. I have spent less than 30 minutes on patient care today. Dr Ramsey was available by phone for the evaluation of this patient. The time was used to review the medical records including relevant urine studies and Prescription history (MAPs), review of the available imaging, evaluation and examination of the patient, coordination of care with the medical staff and if applicable referring physicians, as well as creation of the medical record PQRS Narrative: Smoking Status Current every day smoker Narcotic Agreement Date Signed 09/27/23 Hx Alcohol Use (MH) No Home Medications: Ambulatory Orders Aspirin 81 mg PO DAILY 04/02/15 Dextroamphetamine/Amphetamine [Adderall] 15 mg PO BID 07/24/15 Ergocalciferol [Vitamin D2] 50,000 unit PO [id number] 09/02/16 Metoprolol Tartrate [Lopressor] 50 mg PO BID 05/09/17 Rosuvastatin Calcium [Crestor] 40 mg PO DAILY 11/22/17 Omeprazole 20 mg PO DAILY PRN 09/08/20 Albuterol Inhaler [Ventolin Hfa Inhaler] 1 - 2 puff INHALATION QID PRN 01/10/22 Budesonide-Formot 160-4.5 Mcg [Symbicort 160-4.5 Mcg Inhaler] 1 puff INHALATION BID 01/10/22 Polymyxin B-Trimeth Sulf Ophth [Polytrim Opthalmic] 1 drops BOTH EYES Q3H 7 Days #10 ml 03/31/22 Sennosides [Senokot] 8.6 mg PO BID PRN 30 Days #60 tablet 02/15/23 Cyclobenzaprine [Flexeril] 10 mg PO HS PRN 30 Days #30 tab 09/27/23 Gabapentin [Neurontin] 300 mg PO QID 30 Days #120 cap 01/17/24 HYDROcodone/APAP 10-325MG [[place] 10-325] 1 tab PO Q12HR PRN 30 Days #60 tab 01/17/24 HYDROcodone/APAP 10-325MG [[place] 10-325] 1 tab PO Q12HR PRN 30 Days #60 tab 01/17/24 Controlled Substance Measures - Controlled Substance Measures Is patient prescribed a controlled substance at discharge?: Yes When asked, does pt state using other controlled substances?: Yes If prescribed controlled substance>3 days was MAPS reviewed?: Yes If Rx opioid, was Start Talking consent form obtained?: Yes Was information provided regarding opioid addiction?: Yes
== END ==
LOC: PNWHC3 07:22
PROVIDERS: ATTEND Specialist
DX: M54.50 Low back pain, unspecified
CPT/HCPCS: 99211

== ENCOUNTER → 2024-03-20 | Outpatient (CLI) | payer MEDICARE, OTHER ==
[2024-03-20 07:53] VITALS: BP 101/71; PULSE 75; RESP 16; TEMP 97.1
--- NOTE | 2024-03-20 14:38 | P.PAINPG ---
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 Pain level is provoked at 8 /10 in intensity, constant, localized in the R lower lumbar spine, dull in character w shooting towards the hips & BLEs, R>L. Pain is provoked by standing/ walking for periods of > 5 min or over activity. Pain is alleviated with heat, ice, medications, topical, PT 5 yrs ago, home exercise regimen, repositioning and rest. Interventional pain procedures completed include BL RFA L3-L5 (2020) Patient is currently on [place] 10/325mg #60, Flexeril, Neurontin 300mg #120 Patient denies any side effects of the medication(s), denies excessive drowsiness or sleepiness, denies suicidal ideation and reports that the current pain medication is helping to control the pain and improve activities of daily living. Patient denies any motor or sensory deficits. Patient denies any fever or night sweats, denies any change in the bowel movements or urination. Physical Examination: -Constitutional: Cooperative. Not in acute distress . - Neurologic: Cranial nerve II to XII intact. No focal neurological deficits. - Psychatric: Alert & oriented x 3. Matching mood & appropriate affect. Judgment and insight intact. - Musculoskeletal: Cervical spine: Muscle bulk/ tone/ strength in the bilateral upper extremities normal Vertebral body tenderness to palpation over Spurling test positive Distraction test positive Facet loading test positive TTP Thoracic spine Muscle bulk / tone/ strength in the bilateral paraspinal muscles normal Vertebral body tender to palpation over Facet loading test positive TTP Lumbar spine: Motor bulk/ tone/ strength lower extremities , thigh and legs : 5/5 Deep tendon reflexes : Normal Knee Jerk. Normal Ankle Jerk . Vertebral body tenderness to palpation over L3, L4, L5 Lumbar Facet Loading Test positive Straight Leg Raise: positive at 30 degrees right side/ left side Gaenslen's Test positive Sacral spine : Severe tenderness over the Sacroiliac joint: right side / left side Range of motion: Flexion of the lumbar spine <60 degrees Range of motion: Extension of the lumbar spine <20 degrees Gaenslen's Test positive right side / left side Manuela test: positive right side / left side Thigh Thrust Test positive right side / left side Sacral Thrust Test positive right side / left side Assessment and plan: Chronic LBP secondary to radiculopathy, spondylosis with facet arthropathy without myelopathy Chronic and current use of high-risk medication (Opioids). The patient was counseled about risk of opioid use, psychological risk associated with opioids and was orally counseled to not overuse , divert or sell medications. Pt is to store medication in a safe location. The patient is counseled against driving while using narcotic medications and also not to use alcohol or any illicit recreational drugs. Patient verbalized understanding that the lack of compliance will result in failure to renew narcotic prescription(s) as well as possible discharge from the clinic Diagnoses, prognosis and treatment options including but not limited to physical therapy, surgical interventions, interventional therapies and medication management including narcotics and adjuvant medication were discussed. All patient questions answered MAPS reviewed and it was appropriate. UDS collected 03/20/24. Opiate agreement updated 01/17/24. Prescription refill for [place] 10/325mg #60, Neurontin 300mg #120 w 1 RF. I have spent less than 30 minutes on patient care today. Dr Ramsey was available by phone for the evaluation of this patient. The time was used to review the medical records including relevant urine studies and Prescription history (MAPs), review of the available imaging, evaluation and examination of the patient, coordination of care with the medical staff and if applicable referring physicians, as well as creation of the medical record PQRS Narrative: Smoking Status Current every day smoker Narcotic Agreement Date Signed 01/17/24 Hx Alcohol Use (MH) No Home Medications: Ambulatory Orders Aspirin 81 mg PO DAILY 04/02/15 Dextroamphetamine/Amphetamine [Adderall] 15 mg PO BID 07/24/15 Ergocalciferol [Vitamin D2] 50,000 unit PO [id number] 09/02/16 Metoprolol Tartrate [Lopressor] 50 mg PO BID 05/09/17 Rosuvastatin Calcium [Crestor] 40 mg PO DAILY 11/22/17 Omeprazole 20 mg PO DAILY PRN 09/08/20 Albuterol Inhaler [Ventolin Hfa Inhaler] 1 - 2 puff INHALATION QID PRN 01/10/22 Budesonide-Formot 160-4.5 Mcg [Symbicort 160-4.5 Mcg Inhaler] 1 puff INHALATION BID 01/10/22 Polymyxin B-Trimeth Sulf Ophth [Polytrim Opthalmic] 1 drops BOTH EYES Q3H 7 Days #10 ml 03/31/22 Sennosides [Senokot] 8.6 mg PO BID PRN 30 Days #60 tablet 02/15/23 Cyclobenzaprine [Flexeril] 10 mg PO HS PRN 30 Days #30 tab 09/27/23 Gabapentin [Neurontin] 300 mg PO QID 30 Days #120 cap 03/20/24 HYDROcodone/APAP 10-325MG [[place] 10-325] 1 tab PO Q12HR PRN 30 Days #60 tab 03/20/24 HYDROcodone/APAP 10-325MG [[place] 10-325] 1 tab PO Q12HR PRN 30 Days #60 tab 03/20/24 Controlled Substance Measures - Controlled Substance Measures Is patient prescribed a controlled substance at discharge?: Yes When asked, does pt state using other controlled substances?: Yes If prescribed controlled substance>3 days was MAPS reviewed?: Yes
== END ==
LOC: PNWHC3 07:29
PROVIDERS: ATTEND Specialist
DX: M47.26 Other spondylosis with radiculopathy, lumbar region (principal); Z79.891 Long term (current) use of opiate analgesic; F17.210 Nicotine dependence, cigarettes, uncomplicated
CPT/HCPCS: 80307; G0463; 99212

== ENCOUNTER → 2024-07-17 | Outpatient (CLI) | payer MEDICARE, OTHER ==
[2024-07-17 07:51] VITALS: BP 122/79; PULSE 70; RESP 16; TEMP 97.1
--- NOTE | 2024-07-17 15:07 | P.PAINPG ---
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 Pain level is provoked at 8 /10 in intensity, constant, localized in the R lower lumbar spine, dull in character w shooting towards the hips & BLEs, R>L. Pain is provoked by standing/ walking for periods of > 5 min or over activity. Pain is alleviated with heat, ice, medications, topical, PT 5 yrs ago, home exercise regimen, repositioning and rest. Interventional pain procedures completed include BL RFA L3-L5 (2020) Patient is currently on [place] 10/325mg #60, Flexeril, Neurontin 300mg #120, ASA Patient denies any side effects of the medication(s), denies excessive drowsiness or sleepiness, denies suicidal ideation and reports that the current pain medication is helping to control the pain and improve activities of daily living. Patient denies any motor or sensory deficits. Patient denies any fever or night sweats, denies any change in the bowel movements or urination. Physical Examination: -Constitutional: Cooperative. Not in acute distress . - Neurologic: Cranial nerve II to XII intact. No focal neurological deficits. - Psychatric: Alert & oriented x 3. Matching mood & appropriate affect. Judgment and insight intact. - Musculoskeletal: Cervical spine: Muscle bulk/ tone/ strength in the bilateral upper extremities normal Vertebral body tenderness to palpation over Spurling test positive Distraction test positive Facet loading test positive TTP Thoracic spine Muscle bulk / tone/ strength in the bilateral paraspinal muscles normal Vertebral body tender to palpation over Facet loading test positive TTP Lumbar spine: Motor bulk/ tone/ strength lower extremities , thigh and legs : 5/5 Deep tendon reflexes : Normal Knee Jerk. Normal Ankle Jerk . Vertebral body tenderness to palpation over L3, L4, L5 Lumbar Facet Loading Test positive BL L4-L5/ L5-S1 Straight Leg Raise: positive at 30 degrees right side/ left side Gaenslen's Test positive Sacral spine : Severe tenderness over the Sacroiliac joint: right side / left side Range of motion: Flexion of the lumbar spine <60 degrees Range of motion: Extension of the lumbar spine <20 degrees Gaenslen's Test positive right side / left side Manuela test: positive right side / left side Thigh Thrust Test positive right side / left side Sacral Thrust Test positive right side / left side Assessment and plan: Chronic LBP secondary to radiculopathy, spondylosis with facet arthropathy without myelopathy Chronic and current use of high-risk medication (Opioids). The patient was counseled about risk of opioid use, psychological risk associated with opioids and was orally counseled to not overuse , divert or sell medications. Pt is to store medication in a safe location. The patient is counseled against driving while using narcotic medications and also not to use alcohol or any illicit recreational drugs. Patient verbalized understanding that the lack of compliance will result in failure to renew narcotic prescription(s) as well as possible discharge from the clinic Diagnoses, prognosis and treatment options including but not limited to physical therapy, surgical interventions, interventional therapies and medication management including narcotics and adjuvant medication were discussed. All patient questions answered MAPS reviewed and it was appropriate. UDS from 03/20/24 reviewed and consistent. Opiate agreement updated 01/17/24. Prescription refill for [place] 10/325mg #60, Neurontin 300mg #120 w 1 RF. I have spent less than 30 minutes on patient care today. Dr Ramsey was available by phone for the evaluation of this patient. The time was used to review the medical records including relevant urine studies and Prescription history (MAPs), review of the available imaging, evaluation and examination of the patient, coordination of care with the medical staff and if applicable referring physicians, as well as creation of the medical record - Pain Location Bilateral Lower Back Non-Pharmacological Interventions: Heat, Ice, Inactivity, Physical Therapy, Position/Reposition, Sitting Pharmacological Interventions: PRN Medication, Scheduled Medication, Topical Medication PQRS Narrative: Smoking Status Current every day smoker Narcotic Agreement Date Signed 01/17/24 Hx Alcohol Use (MH) No Home Medications: Ambulatory Orders Aspirin 81 mg PO DAILY 04/02/15 Dextroamphetamine/Amphetamine [Adderall] 15 mg PO BID 07/24/15 Ergocalciferol [Vitamin D2] 50,000 unit PO [id number] 09/02/16 Metoprolol Tartrate [Lopressor] 50 mg PO BID 05/09/17 Rosuvastatin Calcium [Crestor] 40 mg PO DAILY 11/22/17 Omeprazole 20 mg PO DAILY PRN 09/08/20 Albuterol Inhaler [Ventolin Hfa Inhaler] 1 - 2 puff INHALATION QID PRN 01/10/22 Budesonide-Formot 160-4.5 Mcg [Symbicort 160-4.5 Mcg Inhaler] 1 puff INHALATION BID 01/10/22 Polymyxin B-Trimeth Sulf Ophth [Polytrim Opthalmic] 1 drops BOTH EYES Q3H 7 Days #10 ml 03/31/22 Sennosides [Senokot] 8.6 mg PO BID PRN 30 Days #60 tablet 02/15/23 Cyclobenzaprine [Flexeril] 10 mg PO HS PRN 30 Days #30 tab 09/27/23 Gabapentin [Neurontin] 300 mg PO QID 30 Days #120 cap 07/17/24 HYDROcodone/APAP 10-325MG [[place] 10-325] 1 tab PO Q12HR PRN 30 Days #60 tab 07/17/24 HYDROcodone/APAP 10-325MG [[place] 10-325] 1 tab PO Q12HR PRN 30 Days #60 tab 07/17/24 Controlled Substance Measures - Controlled Substance Measures Is patient prescribed a controlled substance at discharge?: Yes When asked, does pt state using other controlled substances?: Yes If prescribed controlled substance>3 days was MAPS reviewed?: Yes
== END ==
LOC: PNWHC3 07:21
PROVIDERS: ATTEND Specialist
DX: M47.816 Spondylosis without myelopathy or radiculopathy, lumbar region (principal); F17.200 Nicotine dependence, unspecified, uncomplicated
CPT/HCPCS: 99211

== ENCOUNTER → 2024-09-18 | Outpatient (CLI) | payer MEDICARE, OTHER ==
[2024-09-18 07:48] VITALS: BP 100/68; PULSE 67; RESP 16; TEMP 97.7
--- NOTE | 2024-09-18 08:32 | XR ---
EXAMINATION TYPE: XR lumbar spine 2 or 3V DATE OF EXAM: 09/18/2024 8:21 AM COMPARISON: None CLINICAL INDICATION: Male, 68 years old with history of M54.16; PHH, pain TECHNIQUE: XR lumbar spine 2 or 3V - Frontal, lateral and coned in L5-S1 lateral views of the spine. FINDINGS: No evidence of any acute osseous pathology. No evidence of loss of vertebral body height i s seen. There is normal alignment of the lumbar vertebral bodies. Scattered disc space narrowing. Mul tilevel marginal osteophyte formation throughout the visualized spine. There is facet joint arthropat hy throughout the spine. Scattered at least mild neural foraminal stenosis. IMPRESSION: 1. No acute fracture. 2. Moderate multilevel disc degeneration. [facility], , 09/18/2024 8:29 AM
--- NOTE | 2024-09-18 15:47 | P.PAINPG ---
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 Pain level is provoked at 8 /10 in intensity, constant, localized in the R lower lumbar spine, dull in character w shooting towards the hips & BLEs, R>L. Pain is provoked by standing/ walking for periods of > 5 min or over activity. Pain is alleviated with heat, ice, medications, topical, PT 5 yrs ago, home exercise regimen, repositioning and rest. Interventional pain procedures completed include BL RFA L3-L5 (2020) Patient is currently on [place] 10/325mg #60, Flexeril, Neurontin 300mg #120, ASA Patient denies any side effects of the medication(s), denies excessive drowsiness or sleepiness, denies suicidal ideation and reports that the current pain medication is helping to control the pain and improve activities of daily living. Patient denies any motor or sensory deficits. Patient denies any fever or night sweats, denies any change in the bowel movements or urination. Physical Examination: -Constitutional: Cooperative. Not in acute distress . - Neurologic: Cranial nerve II to XII intact. No focal neurological deficits. - Psychatric: Alert & oriented x 3. Matching mood & appropriate affect. Judgment and insight intact. - Musculoskeletal: Cervical spine: Muscle bulk/ tone/ strength in the bilateral upper extremities normal Vertebral body tenderness to palpation over Spurling test positive Distraction test positive Facet loading test positive TTP Thoracic spine Muscle bulk / tone/ strength in the bilateral paraspinal muscles normal Vertebral body tender to palpation over Facet loading test positive TTP Lumbar spine: Motor bulk/ tone/ strength lower extremities , thigh and legs : 5/5 Deep tendon reflexes : Normal Knee Jerk. Normal Ankle Jerk . Vertebral body tenderness to palpation over L3, L4, L5 Lumbar Facet Loading Test positive BL L4-L5/ L5-S1 Straight Leg Raise: positive at 30 degrees right side/ left side Gaenslen's Test positive Sacral spine : Severe tenderness over the Sacroiliac joint: right side / left side Range of motion: Flexion of the lumbar spine <60 degrees Range of motion: Extension of the lumbar spine <20 degrees Gaenslen's Test positive right side / left side Manuela test: positive right side / left side Thigh Thrust Test positive right side / left side Sacral Thrust Test positive right side / left side Assessment and plan: Chronic LBP secondary to radiculopathy, spondylosis with facet arthropathy without myelopathy Recommendation of lumbar x ray and PT x 6 wks M54.16. Chronic and current use of high-risk medication (Opioids). The patient was counseled about risk of opioid use, psychological risk associated with opioids and was orally counseled to not overuse , divert or sell medications. Pt is to store medication in a safe location. The patient is counseled against driving while using narcotic medications and also not to use alcohol or any illicit recreational drugs. Patient verbalized understanding that the lack of compliance will result in failure to renew narcotic prescription(s) as well as possible discharge from the clinic Diagnoses, prognosis and treatment options including but not limited to physical therapy, surgical interventions, interventional therapies and medication management including narcotics and adjuvant medication were discussed. All patient questions answered MAPS reviewed and it was appropriate. UDS collected 09/18/24. Opiate agreement updated 09/18/24. Prescription refill for [place] 10/325mg #60, Neurontin 300mg #120 w 1 RF. I have spent less than 30 minutes on patient care today. Dr Ramsey was available by phone for the evaluation of this patient. The time was used to review the medical records including relevant urine studies and Prescription history (MAPs), review of the available imaging, evaluation and examination of the patient, coordination of care with the medical staff and if applicable referring physicians, as well as creation of the medical record - Pain Location Bilateral Lower Back Non-Pharmacological Interventions: Heat, Ice, Inactivity, Physical Therapy, Position/Reposition, Relaxation Technique, Sitting Pharmacological Interventions: Block, Epidural, PRN Medication, Scheduled Medication, Topical Medication PQRS Narrative: Smoking Status Current every day smoker Narcotic Agreement Date Signed 01/17/24 Hx Alcohol Use (MH) No Home Medications: Ambulatory Orders Aspirin 81 mg PO DAILY 04/02/15 Dextroamphetamine/Amphetamine [Adderall] 15 mg PO BID 07/24/15 Ergocalciferol [Vitamin D2] 50,000 unit PO [id number] 09/02/16 Metoprolol Tartrate [Lopressor] 50 mg PO BID 05/09/17 Rosuvastatin Calcium [Crestor] 40 mg PO DAILY 08/15/18 Omeprazole 20 mg PO DAILY PRN 09/08/20 Albuterol Inhaler [Ventolin Hfa Inhaler] 1 - 2 puff INHALATION QID PRN 01/10/22 Budesonide-Formot 160-4.5 Mcg [Symbicort 160-4.5 Mcg Inhaler] 1 puff INHALATION BID 01/10/22 Polymyxin B-Trimeth Sulf Ophth [Polytrim Opthalmic] 1 drops BOTH EYES Q3H 7 Days #10 ml 03/31/22 Sennosides [Senokot] 8.6 mg PO BID PRN 30 Days #60 tablet 02/15/23 Cyclobenzaprine [Flexeril] 10 mg PO HS PRN 30 Days #30 tab 09/27/23 Gabapentin [Neurontin] 300 mg PO QID 30 Days #120 cap 09/18/24 HYDROcodone/APAP 10-325MG [[place] 10-325] 1 tab PO Q12HR PRN 30 Days #60 tab 09/18/24 HYDROcodone/APAP 10-325MG [[place] 10-325] 1 tab PO Q12HR PRN 30 Days #60 tab 09/18/24 Controlled Substance Measures - Controlled Substance Measures Is patient prescribed a controlled substance at discharge?: Yes If prescribed controlled substance>3 days was MAPS reviewed?: Yes
== END ==
LOC: PNWHC3 07:25
PROVIDERS: ATTEND Specialist
DX: M47.26 Other spondylosis with radiculopathy, lumbar region (principal); F17.200 Nicotine dependence, unspecified, uncomplicated
CPT/HCPCS: 72100; 80307; 99212